=== PATIENT | female | born 1995 | race Caucasian/White ===

== ENCOUNTER 2016-11-22 21:13 | Emergency (ER) | payer BC, MEDICAID ==
[2016-11-22 21:22] VITALS: BP 116/96
[2016-11-22] MEDS ORDERED: Lidocaine 1% with EPINEPHrine 1:100,000 20 ML MDV INJECT ONE (21:40)
[2016-11-22] MEDS ORDERED: Diphtheria,Pertussis(Acell),Tetanus Vaccine 0.5 ML SDV inactive IM ONE (21:40)
[2016-11-22] MEDS ORDERED: Bupivacaine 0.25% 10 ML SDV INJECT ONE (21:40)
[2016-11-22] MEDS ORDERED: Lidocaine 1% 50 ML MDV ONE (21:42)
[2016-11-22] MEDS ORDERED: Sulfamethoxazole/Trimethoprim 800-160 MG Tab PO ONE (22:39)
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
== END 2016-11-22 23:35 | disposition home or self-care (01) ==
LOC: JD.ED 21:13
DX: S51.812A Laceration without foreign body of left forearm, initial encounter (principal); J45.909 Unspecified asthma, uncomplicated; F41.9 Anxiety disorder, unspecified; F32.9 Major depressive disorder, single episode, unspecified; F17.210 Nicotine dependence, cigarettes, uncomplicated; Z79.899 Other long term (current) drug therapy; Z88.8 Allergy status to other drugs, medicaments and biological substances; Z23 Encounter for immunization; W27.8XXA Contact with other nonpowered hand tool, initial encounter
CPT/HCPCS: 12034; 90471; 99283; A9270; 90715

== ENCOUNTER 2016-11-24 06:40 | Emergency (ER) | payer BC ==
[2016-11-24 07:03] VITALS: BP 143/95
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
[2016-11-24] MEDS ORDERED: traMADol 50 MG Tab PO ONE (07:15)
[2016-11-24] MEDS ORDERED: Doxycycline 100 MG Cap PO ONE (07:15)
== END 2016-11-24 07:30 | disposition home or self-care (01) ==
LOC: JD.ED 06:40
DX: S51.812D Laceration without foreign body of left forearm, subsequent encounter (principal); J45.909 Unspecified asthma, uncomplicated; F41.9 Anxiety disorder, unspecified; F32.9 Major depressive disorder, single episode, unspecified; F17.210 Nicotine dependence, cigarettes, uncomplicated; Z88.8 Allergy status to other drugs, medicaments and biological substances; Z79.899 Other long term (current) drug therapy; W27.8XXD Contact with other nonpowered hand tool, subsequent encounter
CPT/HCPCS: 99283; A9270

== ENCOUNTER 2017-01-16 18:00 | Emergency (ER) | payer BC ==
[2017-01-16] MEDS ORDERED: LORazepam 2 MG/ML MDV IM ONE ×2 (18:11→18:15)
[2017-01-16] MEDS ORDERED: diphenhydrAMINE 50 MG/ML SDV IM ONE (18:15)
[2017-01-16] MEDS ORDERED: Haloperidol Lactate 5 MG/ML SDV IM ONE (18:15)
[2017-01-16 18:59] LABS: ACETAMINOPHEN 0 ug/mL (10-30)
[2017-01-16 19:28] VITALS: BP 103/68
[2017-01-16] MEDS ORDERED: Sodium Chloride 0.9% 1,000 ML IV ONE (19:37)
--- NOTE | 2017-01-16 19:41 | CT ---
Head CT Technique: Multiple axial sections through the brain were obtained. Intravenous contrast was not utilized. Comparison: Prior head CT exam of 07/11/15. Findings: Ventricles along with basal cisterns and sulci over the convexities are within normal limits for the patient's age. Slight soft tissue swelling is seen anteriorly within the scalp. No abnormal parenchymal densities are seen. No evidence of intracranial hemorrhage. No midline shift or mass effect is seen. Bone window settings were reviewed which shows no discrete calvarial abnormality. Visualized sinuses are clear. Impression: 1. Mild soft tissue swelling within the anterior scalp. 2. No acute intracranial abnormality is identified on noncontrast head CT study. Diagnostic code #2
[2017-01-16] MEDS ORDERED: Potassium Chloride 10 MEQ in Premix Bag 1 BAG IV SCH (19:45)
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
== END 2017-01-16 21:19 ==
LOC: JD.ED 18:00
PROC: 0JQ10ZZ Repair Face Subcutaneous Tissue and Fascia, Open Approach (ICD-10-PCS; principal; 2017-01-16)
DX: S01.81XA Laceration without foreign body of other part of head, initial encounter (principal); F10.10 Alcohol abuse, uncomplicated; F32.9 Major depressive disorder, single episode, unspecified; Z79.899 Other long term (current) drug therapy; W22.8XXA Striking against or struck by other objects, initial encounter; Y90.0 Blood alcohol level of less than 20 mg/100 ml
CPT/HCPCS: 12013; 36415; 70450; 80053; 80306; 81001; 81025; 85025; 96365; 96372; 99285; G0480; J1200; J1630; J2060; J3480; J7040; P9612; 99284-25

== ENCOUNTER 2017-02-05 16:30 | Emergency (ER) | payer BC ==
[2017-02-05 16:41] VITALS: BP 130/87
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
== END 2017-02-05 17:30 | disposition home or self-care (01) ==
LOC: JD.ED 16:30
DX: F13.239 Sedative, hypnotic or anxiolytic dependence with withdrawal, unspecified (principal); J45.909 Unspecified asthma, uncomplicated; F41.9 Anxiety disorder, unspecified; F32.9 Major depressive disorder, single episode, unspecified; F17.210 Nicotine dependence, cigarettes, uncomplicated; Z88.8 Allergy status to other drugs, medicaments and biological substances; Z79.899 Other long term (current) drug therapy; Z76.5 Malingerer [conscious simulation]
CPT/HCPCS: 99283; 99284

== ENCOUNTER 2017-03-17 09:00 | Emergency (ER) | payer BC ==
[2017-03-17 09:12] VITALS: BP 108/86
[2017-03-17 10:56] LABS: ACETAMINOPHEN 0 ug/mL (10-30)
--- NOTE | 2017-03-17 11:38 | CT ---
Head CT Technique: Multiple axial sections through the brain were obtained. Intravenous contrast was not utilized. Comparison: Previous head CT exam of 01/16/17. Findings: Ventricles along with basal cisterns and sulci over convexities are within normal limits for the patient's age. No abnormal parenchymal densities are seen. No evidence of intracranial hemorrhage. No midline shift or mass effect is seen. Mild soft tissue swelling seen to the left side of the upper scalp. Bone window settings shows no discrete calvarial abnormality. Visualized sinuses are clear. Impression: 1. Mild soft tissue swelling within the left side of the scalp. 2. No acute intracranial abnormality is identified. Diagnostic code #2
[2017-03-17] MEDS ORDERED: LORazepam 1 MG Tab PO ONE (13:08)
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
== END 2017-03-17 17:38 ==
LOC: JD.ED 09:00
DX: F15.10 Other stimulant abuse, uncomplicated (principal); S01.01XA Laceration without foreign body of scalp, initial encounter; J45.909 Unspecified asthma, uncomplicated; F32.9 Major depressive disorder, single episode, unspecified; F17.210 Nicotine dependence, cigarettes, uncomplicated; Z79.899 Other long term (current) drug therapy; Z88.8 Allergy status to other drugs, medicaments and biological substances; X58.XXXA Exposure to other specified factors, initial encounter
CPT/HCPCS: 12001; 36415; 70450; 80053; 80306; 84703; 85025; 99285; A9270; G0480

== ENCOUNTER 2017-05-31 12:28 | Emergency (ER) | payer BC ==
[2017-05-31 12:49] VITALS: BP 118/77
[2017-05-31] MEDS ORDERED: Sodium Chloride 0.9% 10 ML Syringe FLUSH PRN (13:29)
--- NOTE | 2017-05-31 13:36 | EDM.PDOC ---
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 Patient states she awoke with vaginal bleeding and lower abdominal cramping at approximately 2:00 am this morning. Patient states she had sexual intercourse earlier in the night. No pain present that time. Patient changed the pad and went back to bed. There has been no bleeding since. She only saturated a thin pad with onset. She continues to have no abdominal cramping at this point. She is not taking anything for the discomfort. 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 was confirmed by Dr. Oh in office with a urine test. She scheduled to undergo ultrasound this coming Thursday. Last menstrual cycle was approximately March 24, 2017. There's been no abnormal vaginal discharge. She is in a monogamous relationship. She has no history of STDs. Denies any nausea/vomiting, dizziness, fever/chills, dysuria. She does have a history of UTI and was placed on antibiotic of unknown name. This was started approximately 4 days ago. 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 ." Respiratory History: Reports: Asthma 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: Psychiatric History: Reports: Anxiety, Depression Dermatologic History: Reports: Eczema - Past Surgical History HEENT Surgical History: Reports: Oral Surgery Social & Family History - Family History Family Medical History: Noncontributory - Tobacco Use Smoking Status *Q: Former Smoker Years of Tobacco use: 5 Packs/Tins Daily: 1 Used Tobacco, but Quit: Yes Month Tobacco Last Used: 4 days ago - Caffeine Use Caffeine Use: Reports: Coffee, Soda Caffeine Use Comment: unable to obtain - Alcohol Use Days Per Week of Alcohol Use: 0 Number of Drinks Per Day: 1 Total Drinks Per Week: 0 - Recreational Drug Use Recreational Drug Use: Yes Drug Use in Last 12 Months: No Recreational Drug Type: Reports: Marijuana/Hashish, Methamphetamine Other Recreational Drug Type: meth-last used 2 weeks ago- Recreational Drug Use Frequency: Weekly - Living Situation & Occupation Living situation: Reports: Single Occupation: Unemployed (At present she claims that she does not have any place to live. Advised her to go to [facility] as they may be able to help her out in this regard.) ED ROS GENERAL - Review of Systems Review Of Systems: ROS reveals no pertinent complaints other than HPI. ED EXAM - Physical Exam Exam: See Below Exam Limited By: No Limitations General Appearance: Alert, WD/WN, No Apparent Distress Ears: Hearing Grossly Normal Nose: Normal Inspection Throat/Mouth: Normal Voice, No Airway Compromise Head: Atraumatic, Normocephalic Neck: Normal Inspection, Supple Respiratory/Chest: No Respiratory Distress, Lungs Clear, Normal Breath Sounds, No Accessory Muscle Use, Chest Non-Tender Cardiovascular: Normal Peripheral Pulses, Regular Rate, Rhythm, No Murmur GI/Abdominal Exam: Normal Bowel Sounds, Soft, No Organomegaly, No Distention, Tender (Mild suprapubic region discomfort) Back Exam: Normal Inspection. No: CVA Tenderness (L), CVA Tenderness (R) Neurological: Alert, Oriented, CN II-XII Intact, Normal Cognition, No Motor/ Sensory Deficits Psychiatric: Normal Affect, Normal Mood Skin Exam: Warm, Dry, Intact, Normal Color, No Rash Course - Vital Signs Last Recorded V/S: Last Vital Signs Temp 98.5 F 05/31/17 12:47 Pulse 94 05/31/17 12:47 Resp 20 05/31/17 12:47 BP 118/77 05/31/17 12:47 Pulse Ox 100 05/31/17 12:47 - Orders/Labs/Meds Orders: Active Orders 24 hr Category Date Time Status Peripheral IV Care [RC] . DIRECTED Care 05/31/17 13:29 Active PATIENT RETYPE [BBK] Stat Lab 05/31/17 14:31 Results TYPE AND SCREEN [BBK] Stat Lab 05/31/17 14:31 Results Peripheral IV Insertion Adult [OM.PC] Stat Oth 05/31/17 13:29 Ordered Labs: Laboratory Tests 05/31/17 05/31/17 05/31/17 Range/Units 14:31 14:31 14:31 WBC 7.67 (3.98-10.04) K/mm3 RBC 4.20 (3.98-5.22) M/mm3 Hgb 12.8 (11.2-15.7) gm/L Hct 38.0 (34.1-44.9) % MCV 90.5 (79.4-94.8) fl MCH 30.5 (25.6-32.2) pg MCHC 33.7 (32.2-35.5) g/dl RDW Std Deviation 45.6 (36.4-46.3) fL Plt Count 279 (182-369) K/mm3 MPV 8.4 L (9.4-12.3) fl Neut % (Auto) 62.7 (34.0-71.1) % Lymph % (Auto) 20.7 (19.3-51.7) % [place] % (Auto) 14.0 H (4.7-12.5) % Eos % (Auto) 2.1 (0.7-5.8) Baso % (Auto) 0.4 (0.1-1.2) % Neut # (Auto) 4.81 (1.56-6.13) K/mm3 Lymph # (Auto) 1.59 (1.18-3.74) K/mm3 [place] # (Auto) 1.07 H (0.24-0.36) K/mm3 Eos # (Auto) 0.16 (0.04-0.36) K/mm3 Baso # (Auto) 0.03 (0.01-0.08) K/mm3 Sodium 139 (136-145) mEq/L Potassium 3.9 (3.5-5.1) mEq/L Chloride 105 (98-107) mEq/L Carbon Dioxide 26 (21-32) mEq/L Anion Gap 11.9 (5-15) BUN 8 (7-18) mg/dL Creatinine 0.7 (0.55-1.02) mg/dL Est Cr Clr Drug Dosing 106.05 mL/min Estimated GFR (MDRD) > 60 (>60) mL/min BUN/Creatinine Ratio 11.4 L (14-18) Glucose 90 (74-106) mg/dL Calcium 8.8 (8.5-10.1) mg/dL Total Bilirubin 0.3 (0.2-1.0) mg/dL AST 105 H (15-37) U/L ALT 137 H (14-59) U/L Alkaline Phosphatase 50 (46-116) U/L C-Reactive Protein < 0.2 (<1.0) mg/dL Total Protein 6.8 (6.4-8.2) g/dl Albumin 3.5 (3.4-5.0) g/dl Globulin 3.3 gm/dL Albumin/Globulin Ratio 1.1 (1-2) TSH 3rd Generation 1.163 (0.516-4.13) uIU/mL HCG, Quant 83437.0 mIU/mL Blood Type AB POSITIVE Gel Antibody Screen Negative Meds: Medications Discontinued Medications Generic Name Dose Route Start Last Admin Trade Name Freq PRN Reason Stop Dose Admin Sodium Chloride 1,000 mls @ 250 mls/hr 05/31/17 14:45 05/31/17 14:47 Normal Saline IV 250 mls/hr ASDIRECTED CODY Administration Sodium Chloride 10 ml 05/31/17 13:29 05/31/17 14:47 Saline Flush FLUSH 10 ml ASDIRECTED PRN Administration Keep Vein Open - Re-Assessments/Exams Free Text/Narrative Re-Assessment/Exam: IV established with initial blood work including: CBC, chem 14, hCG quantitative , TSH, type and screen, UA, and CRP. Will obtain a OB transvaginal ultrasound. 05/31/17 13:36 Last hCG obtained [id number] was 13,557. Urine culture obtained 05/18/2017 was positive for bacterial vaginosis. Patient is on Flagyl. CBC has resulted out with no concerning findings. Hemoglobin within normal limits. OB transvaginal ultrasound impression: Single intrauterine gestation. Dates as noted above. No, getting processes identified by ultrasound at this time. 1505 Still awaiting for remaining labs to be resulted out. UA has not been collected. Patient urinated prior to admission. 1529 Remaining labs have resulted out minus the UA. Sodium was 139, potassium 3.9, AG 11.9, creatinine 0.7, AST 105, ALTs 137, CRP less than 0.2, TSH 1.163, hCG quantitative is 33,205. Review previous labs that appears patient's LFTs have been elevated since March 2017. Suspect with being . Unclear at this point. UA has not been collected. Patient has no pain with urination. Reassessment, patient remains pain-free. She wishes to be discharged home without a UA sample obtained. Discharge instructions as documented. Departure - Departure Time of Disposition: 15:37 Disposition: Home, Self-Care 01 Condition: Good Clinical Impression: First trimester , 6 weeks gestation of , Vaginal bleeding in , Elevated liver enzymes - Discharge Information Instructions: Vaginal Bleeding During , First Trimester, First Trimester of Referrals: Darius Oh MD [Primary Care Provider] - Forms: ED Department Discharge, ED Return to Work/School Form Additional Instructions: As discussed continue taking the Flagyl as prescribed for bacterial vaginosis. Refrain from sexual intercourse or heavy lifting until evaluated by Dr. Oh this coming Thursday. In addition LFTs were elevated. Suggest following up with primary care provider to determine cause. I suggest refraining from any Tylenol use. Do not take any NSAIDs. Utilize warm compresses to the abdomen if you have any discomfort. Return to the ED if you develop any new or worsening symptoms. - My Orders Last 24 Hours: My Active Orders 05/31/17 13:29 Peripheral IV Care [RC] . DIRECTED Peripheral IV Insertion Adult [OM.PC] Stat 05/31/17 14:31 PATIENT RETYPE [BBK] Stat TYPE AND SCREEN [BBK] Stat - Assessment/Plan Last 24 Hours: My Active Orders 05/31/17 13:29 Peripheral IV Care [RC] . DIRECTED Peripheral IV Insertion Adult [OM.PC] Stat 05/31/17 14:31 PATIENT RETYPE [BBK] Stat TYPE AND SCREEN [BBK] Stat
--- NOTE | 2017-05-31 14:41 | US ---
First trimester obstetrical ultrasound: Multiple real-time images were obtained transvaginally. Comparison: No previous obstetrical imaging for current . Dates: LMP: LMP given as 03/24/17, TAMMI 12/29/17, gestational age 9 weeks 5 days Current ultrasound: TAMMI 01/24/18, gestational age 6 weeks 0 days Single intrauterine gestation is seen. Amniotic fluid volume is normal. Yolk sac and pole are identified. No subchorionic hemorrhage is seen. Minimal fluid within the cul-de-sac is present which is physiologic. No adnexal abnormalities are seen. Measurements: Gestational sac: 1.40 cm - 6 weeks 0 days [place]-rump length: 0.32 cm - 6 weeks 0 days Heart rate: 96 BPM Impression: 1. Single intrauterine gestation. Dates as noted above. 2. No complicating process is identified by ultrasound at this time. Diagnostic code #1
[2017-05-31] MEDS ORDERED: Sodium Chloride 0.9% 1,000 ML IV SCH (14:45)
== END 2017-05-31 16:10 | disposition home or self-care (01) ==
LOC: JD.ED 12:28
DX: O20.9 Hemorrhage in early pregnancy, unspecified (principal); R79.89 Other specified abnormal findings of blood chemistry; Z88.8 Allergy status to other drugs, medicaments and biological substances; Z79.899 Other long term (current) drug therapy; Z87.891 Personal history of nicotine dependence; Z3A.01 Less than 8 weeks gestation of pregnancy
CPT/HCPCS: 36415; 76817; 80053; 84443; 84702; 85025; 86140; 86850; 86900; 86901; 96360; 99284; J7040; J7050; 99283

== ENCOUNTER 2018-01-24 03:35 | Inpatient (IN) | payer BC, MEDICAID ==
[2018-01-24] MEDS ORDERED: Lactated Ringers 1,000 ML ONE (08:27)
[2018-01-24] MEDS ORDERED: Sodium Chloride 0.9% 10 ML Syringe FLUSH PRN (08:35)
[2018-01-24] MEDS ORDERED: Nalbuphine 20 MG/ML 1 ML Syringe IVPUSH PRN (08:35)
[2018-01-24] MEDS: Lactated Ringers 1,000 ML IV SCH ×4 (08:56→13:04)
[2018-01-24] MEDS ORDERED: Ondansetron 4 MG/2 ML SDV IVPUSH PRN (09:18)
[2018-01-24] MEDS ORDERED: diphenhydrAMINE 50 MG/ML SDV IVPUSH PRN (09:18)
[2018-01-24] MEDS ORDERED: fentaNYL 100 MCG/2 ML SDV EPIDUR PRN ×2 (09:18→17:03)
[2018-01-24] MEDS ORDERED: ePHEDrine 50 MG/ML SDV IVPUSH PRN (09:18)
[2018-01-24] MEDS ORDERED: Bupivacaine/fentaNYL/NS 100 ML Bag EPIDUR SCH (09:30)
--- NOTE | 2018-01-24 10:08 | PCM.PREANE ---
Preanesthetic Assessment - Anesthesia/Transfusion/Family Hx Anesthesia History: Prior Anesthesia Without Reaction Family History of Anesthesia Reaction: No - Review of Systems General: No Symptoms Pulmonary: No Symptoms (Smokes a cigarette on occasion.) Cardiovascular: No Symptoms Gastrointestinal: No Symptoms Neurological: No Symptoms, Other (During her she experianced back pain /tingling into her legs. Resolved on its own. No complaints at this time. ) Other: Reports: Diabetes (Gestational. Diet controlled. ), Depression, Anxiety - Physical Assessment Pulse: 74 O2 Sat by Pulse Oximetry: 98 Respiratory Rate: 20 Blood Pressure: 133/65 Vital Signs: Last Vital Signs Temp 36.4 C 01/24/18 08:00 Pulse 100 01/24/18 08:00 Resp 20 01/24/18 08:00 BP 123/75 01/24/18 08:00 Pulse Ox 98 01/24/18 08:00 Height: 1.63 m Weight: 83.461 kg ASA Class: 2 Mental Status: Alert & Oriented x3 Airway Class: Mallampati = 1 Dentition: Reports: Normal Dentition Thyro-Mental Finger Breadths: 3 Mouth Opening Finger Breadths: 3 ROM/Head Extension: Full Lungs: Clear to Auscultation, Normal Respiratory Effort Cardiovascular: Regular Rate, Regular Rhythm - Lab Values: Laboratory Last Values WBC 16.39 K/mm3 (3.98-10.04) H 01/24/18 08:37 RBC 4.16 M/mm3 (3.98-5.22) 01/24/18 08:37 Hgb 13.1 gm/L (11.2-15.7) 01/24/18 08:37 Hct 38.4 % (34.1-44.9) 01/24/18 08:37 MCV 92.3 fl (79.4-94.8) 01/24/18 08:37 MCH 31.5 pg (25.6-32.2) 01/24/18 08:37 MCHC 34.1 g/dl (32.2-35.5) 01/24/18 08:37 RDW Std Deviation 51.3 fL (36.4-46.3) H 01/24/18 08:37 Plt Count 254 K/mm3 (182-369) 01/24/18 08:37 MPV 10.5 fl (9.4-12.3) 01/24/18 08:37 Neut % (Auto) 80.6 % (34.0-71.1) H 01/24/18 08:37 Lymph % (Auto) 12.5 % (19.3-51.7) L 01/24/18 08:37 [place] % (Auto) 6.0 % (4.7-12.5) 01/24/18 08:37 Eos % (Auto) 0.4 (0.7-5.8) L 01/24/18 08:37 Baso % (Auto) 0.1 % (0.1-1.2) 01/24/18 08:37 Neut # (Auto) 13.21 K/mm3 (1.56-6.13) H 01/24/18 08:37 Lymph # (Auto) 2.05 K/mm3 (1.18-3.74) 01/24/18 08:37 [place] # (Auto) 0.99 K/mm3 (0.24-0.36) H 01/24/18 08:37 Eos # (Auto) 0.06 K/mm3 (0.04-0.36) 01/24/18 08:37 Baso # (Auto) 0.02 K/mm3 (0.01-0.08) 01/24/18 08:37 Urine Color Yellow (Yellow) 01/24/18 03:05 Urine Appearance Clear (Clear) 01/24/18 03:05 Urine pH 7.0 (5.0-8.0) 01/24/18 03:05 Ur Specific [place] 1.020 (1.005-1.030) 01/24/18 03:05 Urine Protein Negative (Negative) 01/24/18 03:05 Urine Glucose (UA) Negative (Negative) 01/24/18 03:05 Urine Ketones Negative (Negative) 01/24/18 03:05 Urine Occult Blood Negative (Negative) 01/24/18 03:05 Urine Nitrite Negative (Negative) 01/24/18 03:05 Urine Bilirubin Negative (Negative) 01/24/18 03:05 Urine Urobilinogen 0.2 (0.2-1.0) 01/24/18 03:05 Ur Leukocyte Esterase Negative (Negative) 01/24/18 03:05 Urine Opiates Screen Negative (NEGATIVE) 01/24/18 03:05 Ur Buprenorphine Scrn Negative (NEGATIVE) 01/24/18 03:05 Ur Oxycodone Screen Negative (NEGATIVE) 01/24/18 03:05 Urine Methadone Screen Negative (NEGATIVE) 01/24/18 03:05 Ur Propoxyphene Screen Negative (NEGATIVE) 01/24/18 03:05 Ur Barbiturates Screen Negative (NEGATIVE) 01/24/18 03:05 Ur Tricyclics Screen Negative (NEGATIVE) 01/24/18 03:05 Ur Phencyclidine Scrn Negative (NEGATIVE) 01/24/18 03:05 Ur Amphetamine Screen Negative (NEGATIVE) 01/24/18 03:05 U Methamphetamines Scrn Negative (NEGATIVE) 01/24/18 03:05 U Benzodiazepines Scrn Negative (NEGATIVE) 01/24/18 03:05 U Cocaine Metab Screen Negative (NEGATIVE) 01/24/18 03:05 U Marijuana (THC) Screen Negative (NEGATIVE) 01/24/18 03:05 - Allergies Allergies/Adverse Reactions: Allergies Allergy/AdvReac Type Severity Reaction Status Date / Time quetiapine [From Seroquel] Allergy Anaphylactic Verified 02/05/17 16:33 Shock - Acknowledgements Anesthesia Type Planned: Epidural Pt an Appropriate Candidate for the Planned Anesthesia: Yes Alternatives and Risks of Anesthesia Discussed w Pt/Guardian: Yes Pt/Guardian Understands and Agrees with Anesthesia Plan: Yes PreAnesthesia Questionnaire - Past Health History Medical/Surgical History: Denies Medical/Surgical History HEENT History: Reports: Impaired Vision Other HEENT History: 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 ." Respiratory History: Reports: Asthma 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: Psychiatric History: Reports: Anxiety, Depression Dermatologic History: Reports: Eczema - Past Surgical History HEENT Surgical History: Reports: Oral Surgery - HOME MEDS Home Medications: Home Meds Vit #108/Iron/FA [ One Tablet] 1 tab PO DAILY 05/31/17 [History ] buPROPion [Wellbutrin XL] 150 mg PO DAILY 05/31/17 [History] metroNIDAZOLE [Flagyl] 500 mg PO BID 05/31/17 [History] - CURRENT (IN HOUSE) MEDS Current Meds: Current Medications Diphenhydramine HCl (Benadryl) 25 mg IVPUSH Q6H PRN PRN Reason: Pruritis Ephedrine Sulfate (Ephedrine Sulfate) 5 mg IVPUSH ASDIRECTED PRN PRN Reason: Hypotension Fentanyl (Sublimaze) 100 mcg EPIDUR ONETIME PRN PRN Reason: Pain Last Admin: 01/24/18 09:50 Dose: 100 mcg Fentanyl/Bupivacaine HCl (Fentanyl/Bupivacaine/Ns 2 Mcg-0.125% 100 Ml) 100 ml EPIDUR ASDIRECTED [facility] Last Admin: 01/24/18 09:50 Dose: 100 ml Lactated Ringer's (Ringers, Lactated) 1,000 mls @ 100 mls/hr IV ASDIRECTED [facility] Last Admin: 01/24/18 09:06 Dose: 999 mls/hr Nalbuphine HCl (Nubain) 10 mg IVPUSH Q2H PRN PRN Reason: pain Last Admin: 01/24/18 08:57 Dose: 10 mg Ondansetron HCl (Zofran) 4 mg IVPUSH ONETIME PRN PRN Reason: Nausea/Vomiting Sodium Chloride (Saline Flush) 10 ml FLUSH ASDIRECTED PRN PRN Reason: Keep Vein Open Discontinued Medications Lactated Ringer's (Ringers, Lactated) Confirm Administered Dose 1,000 mls @ as directed .ROUTE .ST-MED ONE Stop: 01/24/18 08:28
[2018-01-24] MEDS ORDERED: Oxytocin/Lactated Ringers 10 UNIT/1,000 ML BAG IV SCH ×2 (13:15→14:30)
[2018-01-24] MEDS ORDERED: fentaNYL 100 MCG/2 ML SDV ONE (17:07)
--- NOTE | 2018-01-24 18:25 | PCM.DEL ---
L & D Note - General Info Date of Service: 01/24/18 - Delivery Note Labor: Augmented by ARM Delivery Method: Spontaneous Vaginal Delivery-Single Delivery Mode: Vacuum Extraction Anesthesia Type: Epidural Episiotomy Type: None Laceration: None Placenta: Spontaneous Cord: 3 Vessels Resuscitation Needed: No Score 1 min: 6 Score 5 min: 8 Delivery Comments (Free Text/Narrative):: Vacuum at for maternal request/exhaustion. 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 - General Info Date of Service: 01/24/18 - Patient Data Vitals - Most Recent: Last Vital Signs Temp 36.4 C 01/24/18 08:00 Pulse 66 01/24/18 11:00 Resp 20 01/24/18 10:07 BP 96/50 L 01/24/18 11:00 Pulse Ox 98 01/24/18 10:07 Weight - Most Recent: 83.461 kg I&O - Last 24 Hours: Intake & Output 01/24/18 01/24/18 01/24/18 06:59 14:59 22:59 Intake Total 240 Balance 240 Lab Results Last 24 Hours: Laboratory Results - last 24 hr 01/24/18 01/24/18 01/24/18 Range/Units 03:05 03:05 08:37 WBC 16.39 H (3.98-10.04) K/mm3 RBC 4.16 (3.98-5.22) M/mm3 Hgb 13.1 (11.2-15.7) gm/L Hct 38.4 (34.1-44.9) % MCV 92.3 (79.4-94.8) fl MCH 31.5 (25.6-32.2) pg MCHC 34.1 (32.2-35.5) g/dl RDW Std Deviation 51.3 H (36.4-46.3) fL Plt Count 254 (182-369) K/mm3 MPV 10.5 (9.4-12.3) fl Neut % (Auto) 80.6 H (34.0-71.1) % Lymph % (Auto) 12.5 L (19.3-51.7) % [place] % (Auto) 6.0 (4.7-12.5) % Eos % (Auto) 0.4 L (0.7-5.8) Baso % (Auto) 0.1 (0.1-1.2) % Neut # (Auto) 13.21 H (1.56-6.13) K/mm3 Lymph # (Auto) 2.05 (1.18-3.74) K/mm3 [place] # (Auto) 0.99 H (0.24-0.36) K/mm3 Eos # (Auto) 0.06 (0.04-0.36) K/mm3 Baso # (Auto) 0.02 (0.01-0.08) K/mm3 POC Glucose (70-105) mg/dL Urine Color Yellow (Yellow) Urine Appearance Clear (Clear) Urine pH 7.0 (5.0-8.0) Ur Specific [place] 1.020 (1.005-1.030) Urine Protein Negative (Negative) Urine Glucose (UA) Negative (Negative) Urine Ketones Negative (Negative) Urine Occult Blood Negative (Negative) Urine Nitrite Negative (Negative) Urine Bilirubin Negative (Negative) Urine Urobilinogen 0.2 (0.2-1.0) Ur Leukocyte Esterase Negative (Negative) Urine Opiates Screen Negative (NEGATIVE) Ur Buprenorphine Scrn Negative (NEGATIVE) Ur Oxycodone Screen Negative (NEGATIVE) Urine Methadone Screen Negative (NEGATIVE) Ur Propoxyphene Screen Negative (NEGATIVE) Ur Barbiturates Screen Negative (NEGATIVE) Ur Tricyclics Screen Negative (NEGATIVE) Ur Phencyclidine Scrn Negative (NEGATIVE) Ur Amphetamine Screen Negative (NEGATIVE) U Methamphetamines Scrn Negative (NEGATIVE) U Benzodiazepines Scrn Negative (NEGATIVE) U Cocaine Metab Screen Negative (NEGATIVE) U Marijuana (THC) Screen Negative (NEGATIVE) 01/24/18 01/24/18 01/24/18 Range/Units 11:50 14:27 16:40 WBC (3.98-10.04) K/mm3 RBC (3.98-5.22) M/mm3 Hgb (11.2-15.7) gm/L Hct (34.1-44.9) % MCV (79.4-94.8) fl MCH (25.6-32.2) pg MCHC (32.2-35.5) g/dl RDW Std Deviation (36.4-46.3) fL Plt Count (182-369) K/mm3 MPV (9.4-12.3) fl Neut % (Auto) (34.0-71.1) % Lymph % (Auto) (19.3-51.7) % [place] % (Auto) (4.7-12.5) % Eos % (Auto) (0.7-5.8) Baso % (Auto) (0.1-1.2) % Neut # (Auto) (1.56-6.13) K/mm3 Lymph # (Auto) (1.18-3.74) K/mm3 [place] # (Auto) (0.24-0.36) K/mm3 Eos # (Auto) (0.04-0.36) K/mm3 Baso # (Auto) (0.01-0.08) K/mm3 POC Glucose 117 H 99 92 (70-105) mg/dL Urine Color (Yellow) Urine Appearance (Clear) Urine pH (5.0-8.0) Ur Specific [place] (1.005-1.030) Urine Protein (Negative) Urine Glucose (UA) (Negative) Urine Ketones (Negative) Urine Occult Blood (Negative) Urine Nitrite (Negative) Urine Bilirubin (Negative) Urine Urobilinogen (0.2-1.0) Ur Leukocyte Esterase (Negative) Urine Opiates Screen (NEGATIVE) Ur Buprenorphine Scrn (NEGATIVE) Ur Oxycodone Screen (NEGATIVE) Urine Methadone Screen (NEGATIVE) Ur Propoxyphene Screen (NEGATIVE) Ur Barbiturates Screen (NEGATIVE) Ur Tricyclics Screen (NEGATIVE) Ur Phencyclidine Scrn (NEGATIVE) Ur Amphetamine Screen (NEGATIVE) U Methamphetamines Scrn (NEGATIVE) U Benzodiazepines Scrn (NEGATIVE) U Cocaine Metab Screen (NEGATIVE) U Marijuana (THC) Screen (NEGATIVE) Med Orders - Current: Current Medications Diphenhydramine HCl (Benadryl) 25 mg IVPUSH Q6H PRN PRN Reason: Pruritis Ephedrine Sulfate (Ephedrine Sulfate) 5 mg IVPUSH ASDIRECTED PRN PRN Reason: Hypotension Fentanyl (Sublimaze) 100 mcg EPIDUR ONETIME PRN PRN Reason: Pain Last Admin: 01/24/18 09:50 Dose: 100 mcg Fentanyl (Sublimaze) 100 mcg EPIDUR ONETIME PRN PRN Reason: Pain Fentanyl/Bupivacaine HCl (Fentanyl/Bupivacaine/Ns 2 Mcg-0.125% 100 Ml) 100 ml EPIDUR ASDIRECTED CODY Last Admin: 01/24/18 09:50 Dose: 100 ml Lactated Ringer's (Ringers, Lactated) 1,000 mls @ 100 mls/hr IV ASDIRECTED CODY Last Admin: 01/24/18 13:04 Dose: 999 mls/hr Oxytocin/Lactated Ringer's (Pitocin In Lr 10 Units/1,000 Ml) 10 unit in 1,000 mls @ 500 mls/hr IV ASDIRECTED CODY Oxytocin/Lactated Ringer's (Pitocin In Lr 10 Units/1,000 Ml) 10 unit in 1,000 mls @ 12 mls/hr IV TITRATE CODY; Protocol Last Titration: 01/24/18 14:49 Dose: 3 munits/min, 18 mls/hr Nalbuphine HCl (Nubain) 10 mg IVPUSH Q2H PRN PRN Reason: pain Last Admin: 01/24/18 08:57 Dose: 10 mg Ondansetron HCl (Zofran) 4 mg IVPUSH ONETIME PRN PRN Reason: Nausea/Vomiting Sodium Chloride (Saline Flush) 10 ml FLUSH ASDIRECTED PRN PRN Reason: Keep Vein Open Discontinued Medications Fentanyl (Sublimaze) Confirm Administered Dose 100 mcg .ROUTE .STK-MED ONE Stop: 01/24/18 17:08 Last Admin: 01/24/18 17:12 Dose: 100 mcg Lactated Ringer's (Ringers, Lactated) Confirm Administered Dose 1,000 mls @ as directed .ROUTE .STK-MED ONE Stop: 01/24/18 08:28 Last Admin: 01/24/18 10:25 Dose: Not Given - Problem List Review Problem List Initiated/Reviewed/Updated: Yes - My Orders Last 24 Hours: My Active Orders 01/24/18 03:05 DRUG SCREEN, URINE [URCHEM] Routine URINALYSIS W/O MICROSCOPIC [UA W/O MICROSCOPIC] [URIN] Routine 01/24/18 08:35 Nalbuphine [Nubain] 10 mg IVPUSH Q2H PRN Sodium Chloride 0.9% [Saline Flush] 10 ml FLUSH ASDIRECTED PRN 01/24/18 08:36 Patient Status [ADT] Routine Activity as Tolerated [RC] PFP Peripheral IV Care [RC] . DIRECTED Vital Signs [RC] PER UNIT ROUTINE RAPID PLASMA REAGIN,RPR [CHEM] Routine Electronic Heart Tones Ext w TOCO [WOMSER] Routine Electronic Heart Tones Internal [WOMSER] Per Unit Routine Peripheral IV Insertion Adult [OM.PC] Routine 01/24/18 08:45 Lactated Ringers [Ringers, Lactated] 1,000 ml IV ASDIRECTED 01/24/18 13:06 Glucose [Blood Glucose Check, Bedside] [RC] ASDIRECTED 01/24/18 13:15 Oxytocin/Lactated Ringers [Pitocin in LR 10 Units/1,000 ML] 10 unit in 1,000 ml IV ASDIRECTED 01/24/18 14:30 Oxytocin/Lactated Ringers [Pitocin in LR 10 Units/1,000 ML] 10 unit in 1,000 ml IV TITRATE 01/24/18 18:20 Patient Status Manage Transfer [TRANSFER] Routine 01/24/18 18:21 Resuscitation Status Routine 01/24/18 Lunch Regular Diet [DIET]
[2018-01-24] MEDS ORDERED: Witch Hazel Medicated Pads 100/Jar TOP PRN (19:46)
[2018-01-24] MEDS ORDERED: Docusate Sodium 100 MG Cap PO PRN (19:46)
[2018-01-24] MEDS ORDERED: Lanolin 100% Cream 7 GM Tube TOP PRN (19:46)
[2018-01-24] MEDS: Ibuprofen 600 MG Tab PO PRN (20:25)
[2018-01-24] MEDS ORDERED: Bupivacaine 0.25% 10 ML SDV ONE (22:00)
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
--- NOTE | 2018-01-25 06:28 | PCM.PNPP ---
- General Info Date of Service: 01/25/18 Functional Status: Reports: Pain Controlled - Review of Systems General: Reports: No Symptoms HEENT: Reports: No Symptoms Pulmonary: Reports: No Symptoms Cardiovascular: Reports: No Symptoms Gastrointestinal: Reports: No Symptoms Genitourinary: Reports: No Symptoms Musculoskeletal: Reports: No Symptoms Skin: Reports: No Symptoms Neurological: Reports: No Symptoms Psychiatric: Reports: No Symptoms - General Info Date of Service: 01/25/18 - Patient Data Vital Signs - Most Recent: Last Vital Signs Temp 36.7 C 01/25/18 00:20 Pulse 64 01/25/18 00:20 Resp 16 01/25/18 00:20 BP 105/64 01/25/18 00:20 Pulse Ox 100 01/25/18 00:20 Weight - Most Recent: 83.461 kg I&O - Last 24 Hours: Intake & Output 01/24/18 01/24/18 01/25/18 14:59 22:59 06:59 Intake Total 240 5000 Balance 240 5000 Lab Results - Last 24 Hours: Laboratory Results - last 24 hr 01/24/18 01/24/18 01/24/18 Range/Units 08:37 11:50 14:27 WBC 16.39 H (3.98-10.04) K/mm3 RBC 4.16 (3.98-5.22) M/mm3 Hgb 13.1 (11.2-15.7) gm/L Hct 38.4 (34.1-44.9) % MCV 92.3 (79.4-94.8) fl MCH 31.5 (25.6-32.2) pg MCHC 34.1 (32.2-35.5) g/dl RDW Std Deviation 51.3 H (36.4-46.3) fL Plt Count 254 (182-369) K/mm3 MPV 10.5 (9.4-12.3) fl Neut % (Auto) 80.6 H (34.0-71.1) % Lymph % (Auto) 12.5 L (19.3-51.7) % [place] % (Auto) 6.0 (4.7-12.5) % Eos % (Auto) 0.4 L (0.7-5.8) Baso % (Auto) 0.1 (0.1-1.2) % Neut # (Auto) 13.21 H (1.56-6.13) K/mm3 Lymph # (Auto) 2.05 (1.18-3.74) K/mm3 [place] # (Auto) 0.99 H (0.24-0.36) K/mm3 Eos # (Auto) 0.06 (0.04-0.36) K/mm3 Baso # (Auto) 0.02 (0.01-0.08) K/mm3 POC Glucose 117 H 99 (70-105) mg/dL 01/24/18 Range/Units 16:40 WBC (3.98-10.04) K/mm3 RBC (3.98-5.22) M/mm3 Hgb (11.2-15.7) gm/L Hct (34.1-44.9) % MCV (79.4-94.8) fl MCH (25.6-32.2) pg MCHC (32.2-35.5) g/dl RDW Std Deviation (36.4-46.3) fL Plt Count (182-369) K/mm3 MPV (9.4-12.3) fl Neut % (Auto) (34.0-71.1) % Lymph % (Auto) (19.3-51.7) % [place] % (Auto) (4.7-12.5) % Eos % (Auto) (0.7-5.8) Baso % (Auto) (0.1-1.2) % Neut # (Auto) (1.56-6.13) K/mm3 Lymph # (Auto) (1.18-3.74) K/mm3 [place] # (Auto) (0.24-0.36) K/mm3 Eos # (Auto) (0.04-0.36) K/mm3 Baso # (Auto) (0.01-0.08) K/mm3 POC Glucose 92 (70-105) mg/dL Med Orders - Current: Current Medications Docusate Sodium (Colace) 100 mg PO BID PRN PRN Reason: Constipation Emollient Ointment (Lansinoh Hpa) 0 gm TOP ASDIRECTED PRN PRN Reason: Sore Nipples Ibuprofen (Motrin) 600 mg PO Q6H PRN PRN Reason: Mild pain or fever Last Admin: 01/24/18 20:25 Dose: 600 mg Witch Marcelle (Tucks) 1 pad TOP ASDIRECTED PRN PRN Reason: Hemorrhoid pain Last Admin: 01/24/18 20:25 Dose: 1 tub Discontinued Medications Diphenhydramine HCl (Benadryl) 25 mg IVPUSH Q6H PRN PRN Reason: Pruritis Ephedrine Sulfate (Ephedrine Sulfate) 5 mg IVPUSH ASDIRECTED PRN PRN Reason: Hypotension Fentanyl (Sublimaze) 100 mcg EPIDUR ONETIME PRN PRN Reason: Pain Last Admin: 01/24/18 09:50 Dose: 100 mcg Fentanyl (Sublimaze) 100 mcg EPIDUR ONETIME PRN PRN Reason: Pain Fentanyl (Sublimaze) Confirm Administered Dose 100 mcg .ROUTE .STK-MED ONE Stop: 01/24/18 17:08 Last Admin: 01/24/18 17:12 Dose: 100 mcg Fentanyl/Bupivacaine HCl (Fentanyl/Bupivacaine/Ns 2 Mcg-0.125% 100 Ml) 100 ml EPIDUR ASDIRECTED C[facility] Last Admin: 01/24/18 09:50 Dose: 100 ml Lactated Ringer's (Ringers, Lactated) Confirm Administered Dose 1,000 mls @ as directed .ROUTE .STK-MED ONE Stop: 01/24/18 08:28 Last Admin: 01/24/18 10:25 Dose: Not Given Lactated Ringer's (Ringers, Lactated) 1,000 mls @ 100 mls/hr IV ASDIRECTED CODY Last Admin: 01/24/18 13:04 Dose: 999 mls/hr Oxytocin/Lactated Ringer's (Pitocin In Lr 10 Units/1,000 Ml) 10 unit in 1,000 mls @ 500 mls/hr IV ASDIRECTED CODY Oxytocin/Lactated Ringer's (Pitocin In Lr 10 Units/1,000 Ml) 10 unit in 1,000 mls @ 12 mls/hr IV TITRATE CODY; Protocol Last Titration: 01/24/18 14:49 Dose: 3 munits/min, 18 mls/hr Nalbuphine HCl (Nubain) 10 mg IVPUSH Q2H PRN PRN Reason: pain Last Admin: 01/24/18 08:57 Dose: 10 mg Ondansetron HCl (Zofran) 4 mg IVPUSH ONETIME PRN PRN Reason: Nausea/Vomiting Sodium Chloride (Saline Flush) 10 ml FLUSH ASDIRECTED PRN PRN Reason: Keep Vein Open - Interaction Disposition, : to Nursery Support Person: Significant Other - Recovery Exam Fundal Tone: Firm Fundal Level: At Umbilicus Fundal Placement: Midline Lochia Amount: Small Lochia Color: Rubra/Red Perineum Description: Edematous Other Perinuem Description: first degree repaired, using tucks Episiotomy/Laceration: Approximated Urinary Elimination: Voided - Exam General: Alert, Oriented HEENT: Pupils Equal Neck: Supple Lungs: Clear to Auscultation, Normal Respiratory Effort Cardiovascular: Regular Rate, Regular Rhythm GI/Abdominal Exam: Normal Bowel Sounds, Soft, Non-Tender, No Organomegaly Extremities: Normal Inspection, Normal Range of Motion, Non-Tender, No Pedal Edema, Normal Capillary Refill Skin: Warm, Dry, Intact Neurological: No New Focal Deficit Psy/Mental Status: Alert, Normal Affect, Normal Mood - Problem List Review Problem List Initiated/Reviewed/Updated: Yes - My Orders Last 24 Hours: My Active Orders 01/24/18 13:06 Glucose [Blood Glucose Check, Bedside] [RC] ASDIRECTED 01/24/18 18:21 Resuscitation Status Routine 01/24/18 19:16 Consult to Cook Morning [CONS] Routine 01/24/18 19:46 Activity as Tolerated [RC] PER UNIT ROUTINE Vital Signs [RC] 21,03,09,15 Consult to Cook Morning [CONS] Routine Docusate Sodium [Colace] 100 mg PO BID PRN Ibuprofen [Motrin] 600 mg PO Q6H PRN Lanolin [Lansinoh HPA] See Dose Instructions TOP ASDIRECTED PRN Witch Marcelle [Tucks] 1 pad TOP ASDIRECTED PRN Assess Lochia [WOMSER] Per Unit Routine Assess Uterine Involution [WOMSER] Per Unit Routine Breast Pump [WOMSER] Per Unit Routine Heat Therapy [OM.PC] PRN Medication Administration Instruction [OM.PC] Routine Perineal Care [OM.PC] Per Unit Routine Sitz Bath [OM.PC] Per Unit Routine 01/25/18 19:46 Heat Therapy [OM.PC] PRN - Assessment Assessment:: PPD1 Doing well 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
[2018-01-25] MEDS: Ibuprofen 600 MG Tab PO PRN ×3 (08:10→22:56)
--- NOTE | 2018-01-25 08:31 | PCM48HPAN ---
Post Anesthesia Note - EVALUATION WITHIN 48HRS OF ANESTHETIC Vital Signs in Normal Range: Yes Patient Participated in Evaluation: Yes Respiratory Function Stable: Yes Airway Patent: Yes Cardiovascular Function Stable: Yes Hydration Status Stable: Yes Pain Control Satisfactory: Yes Nausea and Vomiting Control Satisfactory: Yes Mental Status Recovered: Yes Pulse Rate: 64 Resp Rate: 16 Temperature: 98.1 F Blood Pressure: 105/64
--- NOTE | 2018-01-26 07:31 | PCM.DCSUM1 ---
Discharge Summary - Hospital Course Diagnosis: Stroke: No - Discharge Data Discharge Date: 01/26/18 Discharge Disposition: Home, Self-Care 01 Condition: Good - Patient Summary/Data Consults: Consultations 01/24/18 19:16 Consult to Bush Regenerator [CONS] Routine 01/24/18 19:46 Consult to Bush Regenerator [CONS] Routine Hospital Course: Uncomplicated labor and vaginal delivery. Social work consult pending at time of this note but will discharge pending that. - Patient Instructions Diet: Usual Diet as Tolerated Activity: No Strenuous Activities Driving: May Drive Today Showering/Bathing: May Shower, No Showering, No Tub Bathing/Swimming Notify Provider of: Fever, Increased Pain, Swelling and Redness, Drainage, Nausea and/or Vomiting - Discharge Plan *PRESCRIPTION DRUG MONITORING PROGRAM REVIEWED*: Yes *COPY OF PRESCRIPTION DRUG MONITORING REPORT IN PATIENT LEONID: Yes Home Medications: Home Meds Vit #108/Iron/FA [ One Tablet] 1 tab PO DAILY 05/31/17 [History ] buPROPion [Wellbutrin XL] 150 mg PO DAILY 05/31/17 [History] metroNIDAZOLE [Flagyl] 500 mg PO BID 05/31/17 [History] Referrals: Darius Oh MD [Physician] - (1 week. ) Michelle Jacques MD [Physician] - (6 weeks (pt desires Mirena or Nexplanon)) - Discharge Summary/Plan Comment DC Time >30 min.: No - General Info Date of Service: 01/26/18 Functional Status: Reports: Pain Controlled - Review of Systems General: Reports: No Symptoms HEENT: Reports: No Symptoms Pulmonary: Reports: No Symptoms Cardiovascular: Reports: No Symptoms Gastrointestinal: Reports: No Symptoms Genitourinary: Reports: No Symptoms Musculoskeletal: Reports: No Symptoms Skin: Reports: No Symptoms Neurological: Reports: No Symptoms Psychiatric: Reports: No Symptoms - Patient Data Vitals - Most Recent: Last Vital Signs Temp 36.9 C 01/26/18 03:54 Pulse 72 01/26/18 03:54 Resp 15 01/26/18 03:54 BP 113/63 01/26/18 03:54 Pulse Ox 100 01/26/18 03:54 Weight - Most Recent: 83.461 kg I&O - Last 24 hours: Intake & Output 01/25/18 01/26/1801/26/18 22:59 06:59 14:59 Intake Total 120 Balance 120 Med Orders - Current: Current Medications Docusate Sodium (Colace) 100 mg PO BID PRN PRN Reason: Constipation Emollient Ointment (Lansinoh Hpa) 0 gm TOP ASDIRECTED PRN PRN Reason: Sore Nipples Last Admin: 01/25/18 17:17 Dose: 1 tube Ibuprofen (Motrin) 600 mg PO Q6H PRN PRN Reason: Mild pain or fever Last Admin: 01/25/18 22:56 Dose: 600 mg Witch Marcelle (Tucks) 1 pad TOP ASDIRECTED PRN PRN Reason: Hemorrhoid pain Last Admin: 01/24/18 20:25 Dose: 1 tub Discontinued Medications Bupivacaine HCl (Sensorcaine-Mpf 0.25%) 10 ml .ROUTE .STK-MED ONE Stop: 01/24/18 22:01 Diphenhydramine HCl (Benadryl) 25 mg IVPUSH Q6H PRN PRN Reason: Pruritis Ephedrine Sulfate (Ephedrine Sulfate) 5 mg IVPUSH ASDIRECTED PRN PRN Reason: Hypotension Fentanyl (Sublimaze) 100 mcg EPIDUR ONETIME PRN PRN Reason: Pain Last Admin: 01/24/18 09:50 Dose: 100 mcg Fentanyl (Sublimaze) 100 mcg EPIDUR ONETIME PRN PRN Reason: Pain Fentanyl (Sublimaze) Confirm Administered Dose 100 mcg .ROUTE .STK-MED ONE Stop: 01/24/18 17:08 Last Admin: 01/24/18 17:12 Dose: 100 mcg Fentanyl/Bupivacaine HCl (Fentanyl/Bupivacaine/Ns 2 Mcg-0.125% 100 Ml) 100 ml EPIDUR ASDIRECTED [facility] Last Admin: 01/24/18 09:50 Dose: 100 ml Lactated Ringer's (Ringers, Lactated) Confirm Administered Dose 1,000 mls @ as directed .ROUTE .STK-MED ONE Stop: 01/24/18 08:28 Last Admin: 01/24/18 10:25 Dose: Not Given Lactated Ringer's (Ringers, Lactated) 1,000 mls @ 100 mls/hr IV ASDIRECTED [facility] Last Admin: 01/24/18 13:04 Dose: 999 mls/hr Oxytocin/Lactated Ringer's (Pitocin In Lr 10 Units/1,000 Ml) 10 unit in 1,000 mls @ 500 mls/hr IV ASDIRECTED CODY Oxytocin/Lactated Ringer's (Pitocin In Lr 10 Units/1,000 Ml) 10 unit in 1,000 mls @ 12 mls/hr IV TITRATE CODY; Protocol Last Titration: 01/24/18 14:49 Dose: 3 munits/min, 18 mls/hr Nalbuphine HCl (Nubain) 10 mg IVPUSH Q2H PRN PRN Reason: pain Last Admin: 01/24/18 08:57 Dose: 10 mg Ondansetron HCl (Zofran) 4 mg IVPUSH ONETIME PRN PRN Reason: Nausea/Vomiting Sodium Chloride (Saline Flush) 10 ml FLUSH ASDIRECTED PRN PRN Reason: Keep Vein Open - Exam General: Reports: Alert, Oriented HEENT: Reports: Pupils Equal, Pupils Reactive, EOMI, Mucous Membr. Moist/[place] Neck: Reports: Supple Lungs: Reports: Clear to Auscultation, Normal Respiratory Effort Cardiovascular: Reports: Regular Rate, Regular Rhythm GI/Abdominal Exam: Normal Bowel Sounds, Soft, Non-Tender, No Organomegaly, No Distention, No Abnormal Bruit, No Mass, Pelvis Stable Back Exam: Reports: Normal Inspection, Full Range of Motion Extremities: Normal Inspection, Normal Range of Motion, Non-Tender, No Pedal Edema, Normal Capillary Refill Skin: Reports: Warm, Dry, Intact Wound/Incisions: Reports: Healing Well Neurological: Reports: No New Focal Deficit Psy/Mental Status: Reports: Alert, Other (flat affect)
[2018-01-26] MEDS: Ibuprofen 600 MG Tab PO PRN (07:47)
[2018-01-26 09:04] VITALS: BP 124/81
== END 2018-01-26 11:30 | disposition home or self-care (01) | DRG 560 ==
LOC: JD.OBCHECK 03:35 → JD.OB 03:35 → JD.OBCHECK 08:35 → JD.OB 08:36 → OBSVTOIN 17:51 → JD.OB 17:52
PROVIDERS: ADMIT Obstetrics & Gynecology; ATTEND Obstetrics & Gynecology
PROC: 10907ZC Drainage of Amniotic Fluid, Therapeutic from Products of Conception, Via Natural or Artificial Opening (ICD-10-PCS; principal; 2018-01-24)
PROC: 0HQ9XZZ Repair Perineum Skin, External Approach (ICD-10-PCS; principal; 2018-01-24)
PROC: 10D07Z6 Extraction of Products of Conception, Vacuum, Via Natural or Artificial Opening (ICD-10-PCS; principal; 2018-01-24)
PROC: 00HU33Z Insertion of Infusion Device into Spinal Canal, Percutaneous Approach (ICD-10-PCS; 2018-01-24)
PROC: 3E0R3BZ Introduction of Anesthetic Agent into Spinal Canal, Percutaneous Approach (ICD-10-PCS; 2018-01-24)
DX: O24.420 Gestational diabetes mellitus in childbirth, diet controlled (principal); O99.344 Other mental disorders complicating childbirth; F32.9 Major depressive disorder, single episode, unspecified; F41.9 Anxiety disorder, unspecified; O99.334 Smoking (tobacco) complicating childbirth; F17.200 Nicotine dependence, unspecified, uncomplicated; O75.81 Maternal exhaustion complicating labor and delivery; Z3A.39 39 weeks gestation of pregnancy; Z37.0 Single live birth; Z88.8 Allergy status to other drugs, medicaments and biological substances; Z79.899 Other long term (current) drug therapy; O70.0 First degree perineal laceration during delivery; O77.0 Labor and delivery complicated by meconium in amniotic fluid
CPT/HCPCS: 01967; 36415; 51702; 59025; 59300; 59409; 80306; 81003; 82962; 85025; A9270-GY; J2300; J2590; J3010; J3490; J7120

== ENCOUNTER 2018-10-30 17:26 | Emergency (ER) | payer BC, MEDICAID ==
[2018-10-30 17:48] VITALS: BP 126/74
--- NOTE | 2018-10-30 19:11 | EDM.PDOC ---
ED HPI GENERAL MEDICAL PROBLEM - General Chief Complaint: Neck Problem Stated Complaint: NECK PAIN Time Seen by Provider: 10/30/18 18:55 Source of Information: Reports: Patient History Limitations: Reports: No Limitations - History of Present Illness INITIAL COMMENTS - FREE TEXT/NARRATIVE: 23 year old female presents for evaluation and treatment of neck pain. Patient reports this morning she was changing her 9 month old baby's diaper when she felt a sudden sharp pin to the left side of her neck. She reports she has been using OTC treatments throughout the day but the pain is worsening. Reports the pain and decreased ROM is affecting the care of her child. No numbness or tingling into her hands. No previous neck injuries or surgeries. Left Neck Pain Score (Numeric/FACES): 2 - Related Data Allergies Allergy/AdvReac Type Severity Reaction Status Date / Time quetiapine [From Seroquel] Allergy Anaphylactic Verified 10/30/18 17:44 Shock Home Meds: Home Meds [facility] Weight Loss Supplements. 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 ." Respiratory History: Reports: Asthma NIB ASSEMBLER History: Reports: Other NIB ASSEMBLER History: yeast infections Psychiatric History: Reports: Anxiety, Depression Other Endocrine/Metabolic History: gestational diabetes Hematologic History: Reports: Anemia Dermatologic History: Reports: Eczema - Past Surgical History HEENT Surgical History: Reports: Oral Surgery Social & Family History - Family History Family Medical History: Noncontributory - Tobacco Use Smoking Status *Q: Current Every Day Smoker Years of Tobacco use: 5 Packs/Tins Daily: 0.4 - Caffeine Use Caffeine Use: Reports: Coffee, Soda Caffeine Use Comment: unable to obtain - Living Situation & Occupation Living situation: Reports: Single Occupation: Unemployed (At present she claims that she does not have any place to live. Advised her to go to community action as they may be able to help her out in this regard.) ED ROS GENERAL - Review of Systems Review Of Systems: See Below Musculoskeletal: Reports: Neck Pain (primarily to the left). Denies: Arm Pain, Hand Pain Neurological: Reports: Tingling. Denies: Numbness ED EXAM, UPPER BACK/NECK PAIN - Physical Exam Exam: See Below Exam Limited By: No Limitations General Appearance: Alert, WD/WN, No Apparent Distress Ears Exam: Normal External Exam Nose Exam: Normal Inspection Head Exam: Atraumatic, Normocephalic Neck Exam: Normal Inspection, Painful Range of Motion (ROM testing deferred due to pain), Paraspinous Muscle Tender (left cervical spine C2-C6), Stiff Neck. No : Spinous Processes Tender Cardiovascular/Respiratory: Regular Rate, Rhythm, No M/R/G Extremities: Normal Inspection Neurologic: Alert, Normal Mood/Affect Psychiatric: Normal Affect, Normal Mood Skin Exam: Normal Color, Warm/Dry Course - Vital Signs Last Recorded V/S: Last Vital Signs Temp 98.0 F 10/30/18 17:45 Pulse 76 10/30/18 17:45 Resp 16 10/30/18 17:45 BP 126/74 10/30/18 17:45 Pulse Ox 97 10/30/18 17:45 - Orders/Labs/Meds Meds: Medications Discontinued Medications Generic Name Dose Route Start Last Admin Trade Name Freq PRN Reason Stop Dose Admin Ketorolac Tromethamine 60 mg 10/30/18 19:07 10/30/18 19:20 Toradol IM 10/30/18 19:08 60 mg ONETIME ONE Administration Departure - Departure Time of Disposition: 19:08 Disposition: Home, Self-Care 01 Condition: Fair Clinical Impression: Neck strain - Discharge Information *PRESCRIPTION DRUG MONITORING PROGRAM REVIEWED*: No *COPY OF PRESCRIPTION DRUG MONITORING REPORT IN PATIENT LEONID: No Prescriptions: Naproxen 500 mg PO BID #20 tablet Orphenadrine [Norflex] 100 mg PO BID PRN #20 tab PRN Reason: Muscle Spasm Instructions: Cervical Sprain, [id number] Referrals: PCP,None [Primary Care Provider] - Forms: ED Department Discharge Additional Instructions: Recommend using heat to the sore area for pain relief. May also try a topical products such as Icyhot or BenGay. You may take OTC tylenol as needed for pain. Take the naproxen 1 tab twice a day as needed for pain. Take the Norflex 1 tab twice daily as needed for muscle relaxation. Expected the soreness to last approximately one week. The first few days are worse. If your symptoms persist beyond 10 days follow-up with family medicine. move The neck is much as you are able to. Please return to the ER if your symptoms change or worsen.
[2018-10-30] MEDS: Ketorolac 60 MG/2 ML SDV IM ONE (19:20)
== END 2018-10-30 19:23 | disposition home or self-care (01) ==
LOC: JD.ED 17:26
DX: S16.1XXA Strain of muscle, fascia and tendon at neck level, initial encounter (principal); F17.210 Nicotine dependence, cigarettes, uncomplicated; F41.9 Anxiety disorder, unspecified; F32.9 Major depressive disorder, single episode, unspecified; Z88.8 Allergy status to other drugs, medicaments and biological substances; Z79.899 Other long term (current) drug therapy; X50.9XXA Other and unspecified overexertion or strenuous movements or postures, initial encounter
CPT/HCPCS: 96372; 99283; J1885

== ENCOUNTER 2019-06-07 19:21 | Emergency (ER) | payer BC, MEDICAID ==
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
[2019-06-07] MEDS ORDERED: Sodium Chloride 0.9% 1,000 ML IV SCH (19:45)
[2019-06-07] MEDS ORDERED: Ketorolac 30 MG/ML SDV IVPUSH ONE (21:52)
[2019-06-07 22:36] VITALS: BP 134/86; PULSE 93
--- NOTE | 2019-06-09 07:02 | CR ---
Chest: Portable view of the chest was obtained. Comparison: Previous chest x-ray of 03/11/16. Heart size and mediastinum are normal. Lungs are clear. Bony structures are unremarkable. Impression: 1. Nothing acute is seen on portable chest x-ray. Diagnostic code #1 This report was dictated in [place] Standard Time
== END 2019-06-07 22:30 | disposition home or self-care (01) ==
LOC: JD.ED 19:21
DX: M25.461 Effusion, right knee (principal); F19.11 Other psychoactive substance abuse, in remission; F32.9 Major depressive disorder, single episode, unspecified; Z88.8 Allergy status to other drugs, medicaments and biological substances; Z79.899 Other long term (current) drug therapy
CPT/HCPCS: 36415; 71045; 80053; 80306; 80320; 81001; 81025; 83735; 85025; 86140; 87040; 87086; 96361; 96374; 99284; J1885; J7030; G0480

== ENCOUNTER 2019-08-12 15:29 | Emergency (ER) | payer BC, MEDICAID | END 2019-08-12 17:00 | disposition left against medical advice (07) | LOC: JD.ED 15:29 | DX: Z53.21 Procedure and treatment not carried out due to patient leaving prior to being seen by health care provider (principal) ==

== ENCOUNTER 2019-08-25 13:51 | Emergency (ER) | payer BC, MEDICAID ==
[2019-08-25 14:29] VITALS: BP 114/81; PULSE 94
[2019-08-25 16:01] LABS: ACETAMINOPHEN 0 ug/mL (10-30)
--- NOTE | 2019-08-25 16:55 | EDM.PDOCBH ---
ED HPI GENERAL MEDICAL PROBLEM - General Chief Complaint: Drug or Alcohol Abuse Stated Complaint: MEDICAL CLEARANCE Time Seen by Provider: 08/25/19 15:02 Source of Information: Reports: Patient History Limitations: Reports: No Limitations - History of Present Illness INITIAL COMMENTS - FREE TEXT/NARRATIVE: Patient is a 24-year-old female who presents to the ER for medical clearance to go to the [facility]. Patient states that she was in the [facility] until yesterday when she signed herself out. She continued to go to day treatment from [id number] each day. She had a relapse of huffing compressed air early this morning. She had decided that she would like to go back to the [facility]. [facility] here to be medically cleared to go to the [facility] bed. She denies any alcohol use or any other drug use. 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 ." Cardiovascular History: Reports: None Respiratory History: Reports: Asthma Gastrointestinal History: Reports: None Genitourinary History: Reports: None 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 DYER 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 Social & Family History - Family History Family Medical History: Noncontributory - Tobacco Use Smoking Status *Q: Current Every Day Smoker Years of Tobacco use: 9 Packs/Tins Daily: 0.3 - Caffeine Use Caffeine Use: Reports: Coffee, Soda Caffeine Use Comment: unable to obtain - Recreational Drug Use Recreational Drug Use: Yes Drug Use in Last 12 Months: Yes Recreational Drug Type: Reports: Inhalants (Glues, Solvents, Aerosols) - Living Situation & Occupation Living situation: Reports: Single Occupation: Unemployed (At present she claims that she does not have any place to live. Advised her to go to [facility] as they may be able to help her out in this regard.) ED ROS GENERAL - Review of Systems Review Of Systems: Comprehensive ROS is negative, except as noted in HPI. ED EXAM, BEHAVIORAL HEALTH - Physical Exam Exam: See Below Exam Limited By: No Limitations General Appearance: Alert, WD/WN, No Apparent Distress Respiratory/Chest: No Respiratory Distress, Lungs Clear, Normal Breath Sounds, No Accessory Muscle Use, Chest Non-Tender Cardiovascular: Normal Peripheral Pulses, Regular Rate, Rhythm, No Edema, No Gallop, No JVD, No Murmur, No Rub Neurological: Alert, Normal Mood/Affect, CN II-XII Intact, Normal Cognition, Normal Gait, Normal Reflexes, No Motor/Sensory Deficits, Oriented x 3 Psychiatric: Alert, Normal Affect, Normal Cognition, Normal Mood, Oriented Skin Exam: Warm, Dry, Intact, Normal color, No rash COURSE, BEHAVIORAL HEALTH COMP - Course Vital Signs: Last Vital Signs Temp 98.6 F 08/25/19 14:27 Pulse 94 08/25/19 14:27 Resp 16 08/25/19 14:27 BP 114/81 08/25/19 14:27 Pulse Ox 100 08/25/19 14:27 Orders, Labs, Meds: Active Orders 24 hr Category Date Time Status EKG Documentation Completion [RC] ROUTINE Care 08/25/19 15:02 Active Laboratory Tests 08/25/19 08/25/19 08/25/19 Range/Units 15:18 15:18 15:18 WBC 6.88 (3.98-10.04) K/mm3 RBC 4.77 (3.98-5.22) M/mm3 Hgb 13.7 (11.2-15.7) gm/dl Hct 43.6 (34.1-44.9) % MCV 91.4 (79.4-94.8) fl MCH 28.7 (25.6-32.2) pg MCHC 31.4 L (32.2-35.5) g/dl RDW Std Deviation 44.8 (36.4-46.3) fL Plt Count 303 (182-369) K/mm3 MPV 8.6 L (9.4-12.3) fl Neutrophils % (Manual) 67 H (40-60) % Band Neutrophils % 2 (0-10) % Lymphocytes % (Manual) 24 (20-40) % Atypical Lymphs % 0 % Monocytes % (Manual) 6 (2-10) % Eosinophils % (Manual) 0 L (0.7-5.8) % Basophils % (Manual) 1 (0.1-1.2) Platelet Estimate Adequate RBC Morph Comment Normal Sodium 142 (136-145) mEq/L Potassium 4.1 (3.5-5.1) mEq/L Chloride 107 (98-107) mEq/L Carbon Dioxide 26 (21-32) mEq/L Anion Gap 13.1 (5-15) BUN 7 (7-18) mg/dL Creatinine 0.8 (0.55-1.02) mg/dL Est Cr Clr Drug Dosing 94.44 mL/min Estimated GFR (MDRD) > 60 (>60) mL/min BUN/Creatinine Ratio 8.8 L (14-18) Glucose 128 H (74-106) mg/dL Calcium 8.2 L (8.5-10.1) mg/dL Total Bilirubin 0.3 (0.2-1.0) mg/dL AST 20 (15-37) U/L ALT 20 (14-59) U/L Alkaline Phosphatase 340 H (46-116) U/L Total Protein 7.8 (6.4-8.2) g/dl Albumin 4.2 (3.4-5.0) g/dl Globulin 3.6 gm/dL Albumin/Globulin Ratio 1.2 (1-2) TSH 3rd Generation 0.987 (0.358-3.74) uIU/mL Urine HCG, Qual (NEGATIVE) Salicylates 1.6 L (2.8-20) mg/dL Urine Opiates Screen (DZFVIH=801) Ur Buprenorphine Scrn (CUTOFF=10) Ur Oxycodone Screen (LAN5IQ=458) Urine Methadone Screen (DFSDBN=082) Ur Propoxyphene Screen (PYCWMH=605) Acetaminophen 0 L (10-30) ug/mL Ur Barbiturates Screen (VFKYHT=730) Ur Tricyclics Screen (IWUWQR=651) Ur Phencyclidine Scrn (CUTOFF=25) Ur Amphetamine Screen (KGYBRI=536) U Methamphetamines Scrn (ASBHHM=966) U Benzodiazepines Scrn (BUAQKD=878) U Cocaine Metab Screen (RTOGDA=097) U Marijuana (THC) Screen (CUTOFF=50) Ethyl Alcohol 0.00 (0.00) gm% 08/25/19 08/25/19 Range/Units 16:10 16:16 WBC (3.98-10.04) K/mm3 RBC (3.98-5.22) M/mm3 Hgb (11.2-15.7) gm/dl Hct (34.1-44.9) % MCV (79.4-94.8) fl MCH (25.6-32.2) pg MCHC (32.2-35.5) g/dl RDW Std Deviation (36.4-46.3) fL Plt Count (182-369) K/mm3 MPV (9.4-12.3) fl Neutrophils % (Manual) (40-60) % Band Neutrophils % (0-10) % Lymphocytes % (Manual) (20-40) % Atypical Lymphs % % Monocytes % (Manual) (2-10) % Eosinophils % (Manual) (0.7-5.8) % Basophils % (Manual) (0.1-1.2) Platelet Estimate RBC Morph Comment Sodium (136-145) mEq/L Potassium (3.5-5.1) mEq/L Chloride (98-107) mEq/L Carbon Dioxide (21-32) mEq/L Anion Gap (5-15) BUN (7-18) mg/dL Creatinine (0.55-1.02) mg/dL Est Cr Clr Drug Dosing mL/min Estimated GFR (MDRD) (>60) mL/min BUN/Creatinine Ratio (14-18) Glucose (74-106) mg/dL Calcium (8.5-10.1) mg/dL Total Bilirubin (0.2-1.0) mg/dL AST (15-37) U/L ALT (14-59) U/L Alkaline Phosphatase (46-116) U/L Total Protein (6.4-8.2) g/dl Albumin (3.4-5.0) g/dl Globulin gm/dL Albumin/Globulin Ratio (1-2) TSH 3rd Generation (0.358-3.74) uIU/mL Urine HCG, Qual Negative (NEGATIVE) Salicylates (2.8-20) mg/dL Urine Opiates Screen Negative (NWDQKZ=098) Ur Buprenorphine Scrn Negative (CUTOFF=10) Ur Oxycodone Screen Negative (KZC1NY=373) Urine Methadone Screen Negative (EDCIJR=130) Ur Propoxyphene Screen Negative (AYVGNU=721) Acetaminophen (10-30) ug/mL Ur Barbiturates Screen Negative (DXXYND=669) Ur Tricyclics Screen Presumptive positive H (DYUYCI=431) Ur Phencyclidine Scrn Negative (CUTOFF=25) Ur Amphetamine Screen Negative (SDCXVT=390) U Methamphetamines Scrn Negative (HOLSVR=291) U Benzodiazepines Scrn Negative (KOYXBD=113) U Cocaine Metab Screen Negative (AJWHZK=194) U Marijuana (THC) Screen Negative (CUTOFF=50) Ethyl Alcohol (0.00) gm% Re-Assessment/Re-Exam: Complete psychiatric work-up has been ordered. After discussion, patient is uncertain if she wants to return to the [facility] bed or just continue with her day treatment. I strongly recommended that she use all the resources available to assist her. She continues to be uncertain. She will update us when she has made a decision. Lab results are still pending. 08/25/2019 1720 I was notified by nursing staff that the patient has decided to go home and not go to the [facility]. We will discharge her home with general recommendations. Discharge instructions as documented. Departure - Departure Time of Disposition: 17:22 Disposition: Home, Self-Care 01 Condition: Fair Clinical Impression: Drug dependence - Discharge Information *PRESCRIPTION DRUG MONITORING PROGRAM REVIEWED*: No *COPY OF PRESCRIPTION DRUG MONITORING REPORT IN PATIENT LEONID: No Instructions: Chemical Dependency Referrals: PCP,None [Primary Care Provider] - Additional Instructions: You were seen in the emergency department today for medical clearance to go to the [facility] bed. Medical clearance was completed, however ultimately decided to go home instead of going to the [facility] bed. Recommend that you continue to go to your day treatment and abstain from illicit drug use. Return to the ER as needed. Sepsis Event Note - Evaluation Sepsis Screening Result: No Definite Risk - Focused Exam Vital Signs: Vital Signs Temp Pulse Resp BP Pulse Ox 08/25/19 14:27 98.6 F 94 16 114/81 100 Date Exam was Performed: 08/25/19 Time Exam was Performed: 19:38 - My Orders Last 24 Hours: My Active Orders 08/25/19 15:02 EKG Documentation Completion [RC] ROUTINE - Assessment/Plan Last 24 Hours: My Active Orders 08/25/19 15:02 EKG Documentation Completion [RC] ROUTINE
== END 2019-08-25 17:49 | disposition home or self-care (01) ==
LOC: JD.ED 13:51
DX: F19.20 Other psychoactive substance dependence, uncomplicated (principal); F41.9 Anxiety disorder, unspecified; F32.9 Major depressive disorder, single episode, unspecified; F17.210 Nicotine dependence, cigarettes, uncomplicated; Z88.8 Allergy status to other drugs, medicaments and biological substances; Z79.899 Other long term (current) drug therapy
CPT/HCPCS: 36415; 80053; 80306; 80307; 81025; 84443; 85007; 85027; 93005; 93010; 99283; 99283-25

== ENCOUNTER 2019-08-27 15:29 | Emergency (ER) | payer BC, MEDICAID ==
[2019-08-27 16:02] VITALS: BP 121/77; PULSE 86
--- NOTE | 2019-08-27 16:28 | EDM.PDOC ---
ED HPI GENERAL MEDICAL PROBLEM - General Chief Complaint: Behavioral/Psych Stated Complaint: MEDICAL CLEARANCE TO GO TO [facility] Time Seen by Provider: 08/27/19 16:07 Source of Information: Reports: Patient, RN Notes Reviewed History Limitations: Reports: No Limitations - History of Present Illness INITIAL COMMENTS - FREE TEXT/NARRATIVE: Patient is a 24-year-old female who presents to the ED for medical clearance to go to [facility]. Patient was most recently evaluated in this ER roughly 2 days ago, and was medically cleared at that time, but decided not to go to the [facility]. Her work-up included CBC, CMP, EKG, urine drug screen, TSH, Tylenol level, salicylate level, and a EtOH level. The patient states that she has been using aerosol duster cans, that she inhales, sometimes up to 4 cans/day. She notes that she has been doing this since May. But then again Thursday she does not use this at all. Patient states that she has not gone through withdrawal from this. She is not complaining of any self-harm at this time, nor is she hearing or seeing things that are not there. Patient states that all of her medications are still at [facility] so she has not taken any of these medications in the last few days. Patient is not complaining of any fever/chills, nausea/ vomiting/diarrhea, chest pain/shortness of breath. 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 Social & Family History - Family History Family Medical History: Noncontributory - Tobacco Use Smoking Status *Q: Current Every Day Smoker Years of Tobacco use: 5 Packs/Tins Daily: 0.2 - Caffeine Use Caffeine Use: Reports: Soda Caffeine Use Comment: unable to obtain - Recreational Drug Use Recreational Drug Use: Yes Drug Use in Last 12 Months: Yes Recreational Drug Type: Reports: Inhalants (Glues, Solvents, Aerosols), Methamphetamine Other Recreational Drug Type: no meth in the past 4 years, inhales air duster - Living Situation & Occupation Living situation: Reports: Single Occupation: Unemployed (At present she claims that she does not have any place to live. [facility]vised [facility] to [facility] to [facility] as they may be able to help her out in this regard.) ED ROS GENERAL - Review of Systems Review Of Systems: Comprehensive ROS is negative, except as noted in HPI. ED EXAM, GENERAL - Physical Exam Exam: See Below Exam Limited By: No Limitations General Appearance: Alert, WD/WN, No Apparent Distress, Anxious (pt is tearful and anxious at time of exam, but easilly consolable) Eye Exam: Bilateral Eye: EOMI, Normal Inspection, PERRL Ears: Normal External Exam Nose: Normal Inspection Throat/Mouth: Normal Inspection, Normal Lips, Normal Teeth, Normal Gums, Normal Voice, No Airway Compromise, Inflammation Head: Atraumatic, Normocephalic Neck: Normal Inspection Respiratory/Chest: No Respiratory Distress, Lungs Clear, Normal Breath Sounds, No Accessory Muscle Use, Chest Non-Tender Cardiovascular: Normal Peripheral Pulses, Regular Rate, Rhythm, No Edema, No Murmur Peripheral Pulses: 3+: Radial (L), Radial (R) GI/Abdominal: Normal Bowel Sounds, Soft, Non-Tender, No Distention, No Mass Extremities: Normal Inspection, Normal Capillary Refill Neurological: Alert, Oriented, Normal Cognition, No Motor/Sensory Deficits Psychiatric: Anxious, Tearful Skin Exam: Warm, Dry, Intact, Normal Color, No Rash Course - Vital Signs Last Recorded V/S: Last Vital Signs Temp 97.3 F 08/27/19 15:55 Pulse 86 08/27/19 15:55 Resp 20 08/27/19 15:55 BP 121/77 08/27/19 15:55 Pulse Ox 100 08/27/19 15:55 - Orders/Labs/Meds Labs: Laboratory Tests 08/27/19 Range/Units 16:46 Urine Opiates Screen Negative (PTSRIZ=786) Ur Buprenorphine Scrn Negative (CUTOFF=10) Ur Oxycodone Screen Negative (RRR1LE=248) Urine Methadone Screen Negative (UZQZGP=665) Ur Propoxyphene Screen Negative (RJHPQF=035) Ur Barbiturates Screen Negative (HQNUWJ=753) Ur Tricyclics Screen Presumptive positive H (MCDDWS=014) Ur Phencyclidine Scrn Negative (CUTOFF=25) Ur Amphetamine Screen Negative (XGTKCV=529) U Methamphetamines Scrn Negative (RPJZEV=531) U Benzodiazepines Scrn Negative (AFEVUS=484) U Cocaine Metab Screen Negative (VYAWLW=734) U Marijuana (THC) Screen Negative (CUTOFF=50) - Re-Assessments/Exams Free Text/Narrative Re-Assessment/Exam: 08/27/19 16:26 Patient presents to the ED for medical clearance to be admitted back into [facility]. Babita at [facility] was contacted regarding repeat testing as the patient most recently had blood work done 2 days ago, and I highly suspect there to be any abnormalities on the blood work portion. I will go ahead and repeat a urine drug screen for confirmation, she was going to call nursing staff to see if we needed to repeat the EtOH level, patient does not recount any alcohol use in the last 2 days, nor does she appear acutely intoxicated. I do believe that Babita think she would appropriate to be admitted to the crisis bed, and they will be up to evaluate the patient. 08/27/19 17:08 Was told by nursing staff and [facility] staff, that the patient does not want to adhere by the rules, and is wanting to go home at this time. She has found a friend to take her home. She did provide us with a urine sample. However she is walking appropriately, talking appropriately, so she will be discharged at this time. Departure - Departure Time of Disposition: 17:13 Disposition: Home, Self-Care 01 Condition: Fair Clinical Impression: Inhalant abuse - Discharge Information *PRESCRIPTION DRUG MONITORING PROGRAM REVIEWED*: No *COPY OF PRESCRIPTION DRUG MONITORING REPORT IN PATIENT LEONID: No Instructions: Inhalant Use Disorder Referrals: PCP,None [Primary Care Provider] - Forms: ED Department Discharge Additional Instructions: You have been evaluated in the ED for your inhalant drug abuse. You have been discharged home at this time, as you wish not to go to the [facility] due to their regulations. Recommend you follow-up with a regular care provider, so you may get your medications refilled and resume taking them as previously prescribed. Or try to obtain your medications from [facility] so that you can start taking them as previously prescribed. Recommend you follow-up with lois leon on Thursday , for day treatment of sorts. Please try to refrain from inhalant drug abuse at this time. Please return to the ED at any time if symptoms change or worsen. Sepsis Event Note - Evaluation Sepsis Screening Result: No Definite Risk - Focused Exam Vital Signs: Vital Signs Temp Pulse Resp BP Pulse Ox 08/27/19 15:55 97.3 F 86 20 121/77 100 Date Exam was Performed: 08/27/19 Time Exam was Performed: 17:08
== END 2019-08-27 17:21 | disposition home or self-care (01) ==
LOC: JD.ED 15:29
DX: F18.10 Inhalant abuse, uncomplicated (principal); F41.9 Anxiety disorder, unspecified; F32.9 Major depressive disorder, single episode, unspecified; F17.210 Nicotine dependence, cigarettes, uncomplicated; Z88.8 Allergy status to other drugs, medicaments and biological substances; Z79.899 Other long term (current) drug therapy
CPT/HCPCS: 80306; 99283

== ENCOUNTER 2019-11-29 17:15 | Day surgery (SDC) | payer BC, MEDICAID ==
--- NOTE | 2019-11-29 17:58 | CR ---
Abdomen: Supine view of the abdomen was obtained. Foreign body projected within the pelvis located at the junction of the rectum and sigmoid colon. Bowel gas pattern is normal. Bony structures are unremarkable. Small calcification is noted within the right side the pelvis compatible with phlebolith. Bony structures are unremarkable. Impression: 1. Foreign body as noted above. Diagnostic code #2 This report was dictated in MDT
--- NOTE | 2019-11-29 18:08 | EDM.PDOC ---
ED HPI GENERAL MEDICAL PROBLEM - General Chief Complaint: Gastrointestinal Problem Stated Complaint: FOREIGN OBJECT IN RECTUM Time Seen by Provider: 11/29/19 17:19 Source of Information: Reports: Patient History Limitations: Reports: No Limitations - History of Present Illness INITIAL COMMENTS - FREE TEXT/NARRATIVE: Patient is a 24-year-old female who presents to the emergency department with complaints of a 3 inch x 1 inch shaped sex toy stuck in her rectum. She states it was inserted proximally 1 hour prior to coming to the ER. She has attempted manual retrieval at home, however she can no longer feel it with her finger. States she did have a small amount of bleeding to the rectal area due to trauma of trying to remove it. Denies any pain at this time. Patient does have a significant history of substance abuse, however on numerous occasions she denies any drug or alcohol use today. 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 ." Cardiovascular History: Reports: None Respiratory History: Reports: Asthma Gastrointestinal History: Reports: None Genitourinary History: Reports: None 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 Neurological History: Reports: None Psychiatric History: Reports: Addiction, Anxiety, Depression Endocrine/Metabolic History: Reports: Other (See Below) Other Endocrine/Metabolic History: gestational diabetes Hematologic History: Reports: Anemia Immunologic History: Reports: None Oncologic (Cancer) History: Reports: None Dermatologic History: Reports: Eczema - Infectious Disease History Infectious Disease History: Reports: None - Past Surgical History HEENT Surgical History: Reports: Oral Surgery Musculoskeletal Surgical History: Reports: Other (See Below) Other Musculoskeletal Surgeries/Procedures:: Fluid drained from right knee. Social & Family History - Family History Family Medical History: Noncontributory - Tobacco Use Smoking Status *Q: Current Every Day Smoker Years of Tobacco use: 1 Packs/Tins Daily: 0.5 - Caffeine Use Caffeine Use: Reports: None Caffeine Use Comment: unable to obtain - Recreational Drug Use Recreational Drug Use: No - Living Situation & Occupation Living situation: Reports: Single Occupation: Unemployed (At present she claims that she does not have any place to live. [facility] as they may be able to help her out in this regard.) ED ROS GENERAL - Review of Systems Review Of Systems: Comprehensive ROS is negative, except as noted in HPI. ED EXAM, GI/ABD - Physical Exam Exam: See Below Exam Limited By: No Limitations General Appearance: Alert, WD/WN, No Apparent Distress Respiratory/Chest: No Respiratory Distress, Lungs Clear, Normal Breath Sounds, No Accessory Muscle Use, Chest Non-Tender Cardiovascular: Normal Peripheral Pulses, Regular Rate, Rhythm, No Edema, No Gallop, No JVD, No Murmur, No Rub Neurological: Alert, Oriented, CN II-XII Intact, Normal Cognition, Normal Gait, Normal Reflexes, No Motor/Sensory Deficits Psychiatric: Normal Affect, Normal Mood Skin Exam: Warm, Dry, Intact, Normal Color, No Rash Course - Vital Signs Last Recorded V/S: Last Vital Signs Temp 98.7 F 11/29/19 18:41 Pulse 92 11/29/19 18:41 Resp 18 11/29/19 18:41 BP 121/79 11/29/19 18:41 Pulse Ox 100 11/29/19 18:41 - Orders/Labs/Meds Orders: Active Orders 24 hr Category Date Time Status Patient Status [ADT] Routine ADT 11/29/19 18:28 Active Communication Order [RC] ROUTINE Care 11/29/19 19:00 Active Cooling Warming Measures [RC] ASDIRECTED Care 11/29/19 19:00 Active Notify Provider [RC] ASDIRECTED Care 11/29/19 19:00 Active Oxygen Therapy [RC] ASDIRECTED Care 11/29/19 19:00 Active Pulse Oximetry [RC] ASDIRECTED Care 11/29/19 19:00 Active Vital Signs [RC] Q15M Care 11/29/19 19:00 Active Schedule Procedure [COMM] Stat Oth 11/29/19 18:29 Ordered Labs: Laboratory Tests 11/29/19 Range/Units 18:15 HCG, Qual Negative (NEGATIVE) Meds: Medications Discontinued Medications Generic Name Dose Route Start Last Admin Trade Name Anh PRN Reason Stop Dose Admin Fentanyl Confirm 11/29/19 18:58 Sublimaze Administered 11/29/19 18:59 Dose 100 mcg .ROUTE .STK-MED ONE Hydromorphone HCl Confirm 11/29/19 19:08 Dilaudid Administered 11/29/19 19:09 Dose 1 mg .ROUTE .STK-MED ONE Lidocaine HCl Confirm 11/29/19 18:57 Xylocaine-Mpf 1% Administered 11/29/19 18:58 Dose 6 mls @ as directed .ROUTE .STK-MED ONE Lactated Ringer's Confirm 11/29/19 18:57 Ringers, Lactated Administered 11/29/19 18:58 Dose 2,000 mls @ as directed .ROUTE .STK-MED ONE Midazolam HCl Confirm 11/29/19 18:57 Versed 2 Mg/Ml Administered 11/29/19 18:58 Dose 10 mg .ROUTE .STK-MED ONE Midazolam HCl Confirm 11/29/19 18:58 Versed 1 Mg/Ml Administered 11/29/19 18:59 Dose 2 mg .ROUTE .STK-MED ONE Ondansetron HCl Confirm 11/29/19 18:57 Zofran Administered 11/29/19 18:58 Dose 4 mg .ROUTE .STK-MED ONE Propofol Confirm 11/29/19 18:58 Diprivan 20 Ml Administered 11/29/19 18:59 Dose 200 mg .ROUTE .STK-MED ONE - Re-Assessments/Exams Free Text/Narrative Re-Assessment/Exam: 11/29/19 18:08 Abdomen flat x-ray shows a foreign object far up in the rectum near the sigmoid colon. Object is at approximately a 45 degree angle. Called and spoke with the on-call surgeon, Dr. Denis. She requested we call in the OR crew to do a colonoscopy with retrieval. Departure - Departure Time of Disposition: 18:08 Disposition: DC/Tfer to [facility] Condition: Good Clinical Impression: Foreign body of rectum - Discharge Information Sepsis Event Note (ED) - Evaluation Sepsis Screening Result: No Definite Risk - Focused Exam Vital Signs: Vital Signs Temp Pulse Resp BP Pulse Ox 11/29/19 18:41 98.7 F 92 18 121/79 100 11/29/19 17:25 98.4 F 108 H 18 116/69 99 - My Orders Last 24 Hours: My Active Orders 11/29/19 18:28 Patient Status [ADT] Routine 11/29/19 18:29 Schedule Procedure [COMM] Stat - Assessment/Plan Last 24 Hours: My Active Orders 11/29/19 18:28 Patient Status [ADT] Routine 11/29/19 18:29 Schedule Procedure [COMM] Stat
--- NOTE | 2019-11-29 18:21 | PCM.PREANE ---
Preanesthetic Assessment - Anesthesia/Transfusion/Family Hx Anesthesia History: Prior Anesthesia Without Reaction Family History of Anesthesia Reaction: No Transfusion History: No Prior Transfusion(s) Intubation History: Unknown - Review of Systems General: No Symptoms (bline in left eye since ) Pulmonary: No Symptoms (Smoker: /Asthma) Cardiovascular: No Symptoms, Palpitations (with panic attacks) Gastrointestinal: No Symptoms Neurological: No Symptoms (History of drug abuse) Other: Reports: None, Depression, Anxiety - Physical Assessment NPO Status Date: 11/29/19 NPO Status Time: 17:30 Vital Signs: Last Vital Signs Temp 36.9 C 11/29/19 17:25 Pulse 108 H 11/29/19 17:25 Resp 18 11/29/19 17:25 BP 116/69 11/29/19 17:25 Pulse Ox 99 11/29/19 17:25 Height: 1.63 m Weight: 72.575 kg ASA Class: 2E Mental Status: Alert & Oriented x3 Airway Class: Mallampati = 2 Dentition: Reports: Normal Dentition, Caries Thyro-Mental Finger Breadths: 3 Mouth Opening Finger Breadths: 3 ROM/Head Extension: Full Lungs: Clear to Auscultation, Normal Respiratory Effort Cardiovascular: Regular Rate, Regular Rhythm, No Murmurs - Allergies Allergies/Adverse Reactions: Allergies Allergy/AdvReac Type Severity Reaction Status Date / Time quetiapine [From Seroquel] Allergy Anaphylactic Verified 11/29/19 17:27 Shock - Anesthesia Plan Pre-Op Medication Ordered: None - Acknowledgements Anesthesia Type Planned: General Anesthesia Pt an Appropriate Candidate for the Planned Anesthesia: Yes Alternatives and Risks of Anesthesia Discussed w Pt/Guardian: Yes Pt/Guardian Understands and Agrees with Anesthesia Plan: Yes PreAnesthesia Questionnaire - Past Health History Medical/Surgical History: Denies Medical/Surgical History HEENT History: Reports: Impaired Vision Other HEENT History: 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 ." Cardiovascular History: Reports: None Respiratory History: Reports: Asthma Gastrointestinal History: Reports: None Genitourinary History: Reports: None 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 Neurological History: Reports: None Psychiatric History: Reports: Addiction, Anxiety, Depression Endocrine/Metabolic History: Reports: Other (See Below) Other Endocrine/Metabolic History: gestational diabetes Hematologic History: Reports: Anemia Immunologic History: Reports: None Oncologic (Cancer) History: Reports: None Dermatologic History: Reports: Eczema - Infectious Disease History Infectious Disease History: Reports: None - Past Surgical History HEENT Surgical History: Reports: Oral Surgery Musculoskeletal Surgical History: Reports: Other (See Below) Other Musculoskeletal Surgeries/Procedures:: Fluid drained from right knee. - SUBSTANCE USE Smoking Status *Q: Current Every Day Smoker Recreational Drug Use History: No - HOME MEDS Home Medications: Home Meds Amitriptyline [Elavil] 50 mg PO BEDTIME 06/07/19 [History] Venlafaxine [Effexor] 0 mg PO DAILY 06/07/19 [History] clonazePAM [Klonopin] 0.75 mg PO BID 06/07/19 [History] Prazosin HCl [Prazosin] 1 mg PO BEDTIME 08/25/19 [History]
[2019-11-29 18:42] VITALS: PULSE 92
--- NOTE | 2019-11-29 18:45 | PCM.HP.2 ---
H&P History of Present Illness - General Date of Service: 11/29/19 Admit Problem/Dx: Admission Diagnosis/Problem Admission Diagnosis/Problem Foreign body in anus and rectum Source of Information: Patient, Provider History Limitations: Reports: No Limitations - History of Present Illness Initial Comments - Free Text/Narative: The patient is a 24 y/o lady who presents with a foreign body in the rectum/colon. She was at home when this occurred. The object does contain a battery. the patient did try to retrieve the object, but was not successful. She did cause some bleeding when she attempted this. She denies any pain currently. She has no prior occurrence with this type of situation. Her last bowel movement was about 2 days ago. She denies any recent alcohol or drug use. In the emergency department she had an x-ray of the abdomen which shows the object likely in the distal sigmoid colon. - Related Data Allergies/Adverse Reactions: Allergies Allergy/AdvReac Type Severity Reaction Status Date / Time quetiapine [From Seroquel] Allergy Anaphylactic Verified 11/29/19 17:27 Shock Home Medications: Home Meds Amitriptyline [Elavil] 50 mg PO BEDTIME 06/07/19 [History] Venlafaxine [Effexor] 0 mg PO DAILY 06/07/19 [History] clonazePAM [Klonopin] 0.75 mg PO BID 06/07/19 [History] Prazosin HCl [Prazosin] 1 mg PO BEDTIME 08/25/19 [History] Past Medical History - Past Health History Medical/Surgical History: Denies Medical/Surgical History HEENT History: Reports: Impaired Vision Other HEENT History: 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 ." Cardiovascular History: Reports: None Respiratory History: Reports: Asthma Gastrointestinal History: Reports: None Genitourinary History: Reports: None 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: yeast infections Neurological History: Reports: None Psychiatric History: Reports: Addiction, Anxiety, Depression Endocrine/Metabolic History: Reports: Other (See Below) Other Endocrine/Metabolic History: gestational diabetes Hematologic History: Reports: Anemia Immunologic History: Reports: None Oncologic (Cancer) History: Reports: None Dermatologic History: Reports: Eczema - Infectious Disease History Infectious Disease History: Reports: None - Past Surgical History HEENT Surgical History: Reports: Oral Surgery Musculoskeletal Surgical History: Reports: Other (See Below) Other Musculoskeletal Surgeries/Procedures:: Fluid drained from right knee. Social & Family History - Family History Cardiac: Reports: [place] Neurological: Reports: CVA - Tobacco Use Smoking Status *Q: Current Every Day Smoker Years of Tobacco use: 1 Packs/Tins Daily: 0.5 - Caffeine Use Caffeine Use: Reports: None Caffeine Use Comment: unable to obtain - Recreational Drug Use Recreational Drug Use: No - Living Situation & Occupation Living situation: Reports: Single Occupation: Unemployed (At present she claims that she does not have any place to live. Advised her to go to [facility] as they may be able to help her out in this regard.) H&P Review of Systems - Review of Systems: Review Of Systems: See Below General: Reports: No Symptoms HEENT: Reports: No Symptoms Pulmonary: Reports: No Symptoms Cardiovascular: Reports: No Symptoms Gastrointestinal: Reports: No Symptoms Genitourinary: Reports: No Symptoms Musculoskeletal: Reports: No Symptoms Skin: Reports: No Symptoms Neurological: Reports: No Symptoms Hematologic/Lymphatic: Reports: No Symptoms Exam - Exam Exam: See Below - Vital Signs Vital Signs: Last Vital Signs Temp 36.9 C 11/29/19 17:25 Pulse 108 H 11/29/19 17:25 Resp 18 11/29/19 17:25 BP 116/69 11/29/19 17:25 Pulse Ox 99 11/29/19 17:25 Weight: 72.575 kg - Exam Quality Assessment: No: Supplemental Oxygen General: Alert, Oriented HEENT: Conjunctiva Clear, EOMI Neck: Supple Lungs: Normal Respiratory Effort GI/Abdominal Exam: Soft, Non-Tender, No Distention Extremities: Other (Recent scarring over the right knee from surgery) Skin: Warm, Dry, Intact Neurological: Cranial Nerves Intact Psychiatric: Other (Tearful) Sepsis Event Note - Evaluation Sepsis Screening Result: No Definite Risk - Focused Exam Vital Signs: Vital Signs Temp Pulse Resp BP Pulse Ox 11/29/19 17:25 36.9 C 108 H 18 116/69 99 Date Exam was Performed: 11/29/19 Time Exam was Performed: 18:46 *Q Meaningful Use (ADM) - VTE Risk Assess *Q Each Risk Factor Represents 1 Point: None Total Score 1 Point Risk Factors: 0 - Problem List (1) Foreign body in anus and rectum, initial encounter SNOMED Code(s): 058917109 ICD Code: T18.5XXA - FOREIGN BODY IN ANUS AND RECTUM, INITIAL ENCOUNTER Status: Acute Current Visit: Yes (2) History of substance abuse SNOMED Code(s): 043261512 ICD Code: F19.11 - OTHER PSYCHOACTIVE SUBSTANCE ABUSE, IN REMISSION Status: Acute Current Visit: No Problem List Initiated/Reviewed/Updated: Yes Orders Last 24hrs: Active Orders 24 hr Category Date Time Status Patient Status [ADT] Routine ADT 11/29/19 18:28 Active HCG QUALITATIVE,SERUM [CHEM] Stat Lab 11/29/19 18:15 Received Schedule Procedure [COMM] Stat Oth 11/29/19 18:29 Ordered Assessment/Plan Comment:: 24 y/o lady with foreign body in the rectum, perhaps has traveled to the sigmoid. - plan for colonoscopy for retrieval. Discussed risk of perforation. Her written consent was obtained. - NPO Will evaluate for colon injury during colonoscopy. Haven Rodriguez MD General surgery - Mortality Measure Prognosis:: Good
[2019-11-29] MEDS ORDERED: Lactated Ringers 2,000 ML ONE (18:57)
[2019-11-29] MEDS ORDERED: Lidocaine 1% 6 ML ONE (18:57)
[2019-11-29] MEDS ORDERED: Ondansetron 4 MG/2 ML SDV ONE (18:57)
[2019-11-29] MEDS ORDERED: Succinylcholine/Sod PF 100 MG/5 ML SYRINGE IV ONE (18:57)
[2019-11-29] MEDS ORDERED: Midazolam Oral Soln 10 MG/5 ML Oral Syringe ONE (18:57)
[2019-11-29] MEDS ORDERED: fentaNYL 100 MCG/2 ML SDV ONE (18:58)
[2019-11-29] MEDS ORDERED: Propofol 200 MG/20 ML SDV ONE (18:58)
[2019-11-29] MEDS ORDERED: Midazolam 1 MG/ML 2 ML SDV ONE (18:58)
[2019-11-29] MEDS ORDERED: HYDROmorphone 1 MG/ML Syringe ONE (19:08)
--- NOTE | 2019-11-29 19:39 | PCM.OPNOTE ---
- General Post-Op/Procedure Note Date of Surgery/Procedure: 11/29/19 Operative Procedure(s): sigmoidoscopy with retrieval of foreign body Findings: foreign body in sigmoid Pre Op Diagnosis: foreign body in rectum Post-Op Diagnosis: foreign body in sigmoid Anesthesia Technique: General ET Tube Primary Surgeon: Haven Rodriguez Anesthesia Provider: Alejandra Garcia Pathology: none Fluid Replacement, Intraop: 800 Output, Urine Amount: 0 EBL in mLs: 0 Complications: none apparent Condition: Good
--- NOTE | 2019-11-29 19:44 | PCM.PRNOTE ---
- Free Text/Narrative Note: Operative Report Date of surgery: November 29, 2019 Preoperative diagnosis: Foreign body in rectum Postoperative diagnosis: Foreign body in the sigmoid Procedure: Sigmoidoscopy with retrieval of foreign body Surgeon: Dr. Haven Rodriguez Anesthesia: General ET Family And Consumer Education Teacher: Alejandra Garcia CRNA Estimated blood loss: 0 mL IV fluids: 800 mL Urine output: 0 mL Drains and lines: 0 Findings: Foreign body in the sigmoid Pathology: None Indication for the procedure: The patient is a 24-year-old female who presented to the emergency department with foreign body in the rectum. She did try to retrieve this at home was not successful. We discussed colonoscopy with retrieval of this foreign body. Discussed risks of perforation, written consent was obtained. Description of the procedure: The patient was taken back to the procedure room and placed in supine position. She had successful induction of general anesthesia and was intubated without difficulty. She was then positioned in left lateral decubitus position. A surgical timeout was performed we began by inserting the colonoscope into the rectum. The foreign body was visible at the rectosigmoid junction and extending into the sigmoid. A hexagonal snare was then passed over the end of the foreign body. It was then slowly withdrawn into the rectum and out of the body. The scope was then returned into the body. There did not appear to be any significant injury to the surrounding area. There were a few scratches noted in the mucosa in the rectum. There was significant formed stool however that prevented visualization of the sigmoid colon. The scope was advanced slightly into the sigmoid, but this was not able to be visualized well and the scope was withdrawn. The patient tolerated the procedure well. She was awakened from general anesthesia and extubated without difficulty. She was transported to the PACU in stable condition. Haven Rodriguez MD General Surgery
--- NOTE | 2019-11-29 19:58 | PCM.POSTAN ---
POST ANESTHESIA ASSESSMENT - MENTAL STATUS Mental Status: Alert - VITAL SIGNS Vital Signs: Last Vital Signs Temp 97.9 11/29/19 19:45 Pulse 93 11/29/19 19:45 Resp 10 11/29/19 19:45 BP 113/89 11/29/19 19:45 Pulse Ox 100 11/29/19 19:45 - RESPIRATORY Respiratory Status: Respiratory Rate WNL, Airway Patent, O2 Saturation Stable - CARDIOVASCULAR CV Status: Pulse Rate WNL, Blood Pressure Stable - GASTROINTESTINAL GI Status: No Symptoms - POST OP HYDRATION Hydration Status: Adequate & Stable
[2019-11-29 20:32] VITALS: BP 124/88
--- NOTE | 2019-11-29 20:44 | PCM48HPAN ---
Post Anesthesia Note - EVALUATION WITHIN 48HRS OF ANESTHETIC Vital Signs in Normal Range: Yes Patient Participated in Evaluation: Yes Respiratory Function Stable: Yes Airway Patent: Yes Cardiovascular Function Stable: Yes Hydration Status Stable: Yes Pain Control Satisfactory: Yes Nausea and Vomiting Control Satisfactory: Yes Mental Status Recovered: Yes Vital Signs: Last Vital Signs Temp 36.7 C 11/29/19 20:30 Pulse 92 11/29/19 18:41 Resp 19 11/29/19 20:30 BP 124/88 11/29/19 20:30 Pulse Ox 97 11/29/19 20:30
== END 2019-11-29 20:37 | disposition home or self-care (01) ==
LOC: JD.ED 17:15 → JD.SDS 18:28
PROVIDERS: ATTEND Surgery
DX: T18.5XXA Foreign body in anus and rectum, initial encounter (principal); F19.11 Other psychoactive substance abuse, in remission; J45.909 Unspecified asthma, uncomplicated; F41.9 Anxiety disorder, unspecified; F32.9 Major depressive disorder, single episode, unspecified; F17.210 Nicotine dependence, cigarettes, uncomplicated; Z88.8 Allergy status to other drugs, medicaments and biological substances; Z79.899 Other long term (current) drug therapy
CPT/HCPCS: 36415; 45332; 74018; 84703; J0330; J1170; J2001; J2250; J2405; J2704; J3010; J7120; A9270-GY

== ENCOUNTER 2020-12-10 11:34 | Emergency (ER) | payer BC ==
[2020-12-10 12:00] VITALS: BP 116/73; PULSE 86
[2020-12-10] MEDS ORDERED: Ondansetron 4 MG/2 ML SDV IVPUSH ONE (12:18)
[2020-12-10] MEDS ORDERED: Famotidine 20 MG/2 ML SDV IVPUSH ONE (12:18)
[2020-12-10] MEDS ORDERED: Sodium Chloride 0.9% 10 ML Syringe FLUSH PRN (12:18)
[2020-12-10] MEDS ORDERED: Sodium Chloride 0.9% 1,000 ML IV SCH (12:30)
--- NOTE | 2020-12-10 13:42 | EDM.PDOC ---
ED HPI GENERAL MEDICAL PROBLEM - General Chief Complaint: Abdominal Pain Stated Complaint: ABDOMINAL PAIN Time Seen by Provider: 12/10/20 11:52 Source of Information: Reports: Patient, RN Notes Reviewed - History of Present Illness INITIAL COMMENTS - FREE TEXT/NARRATIVE: 25 yr old female with C/O abd pain that she has had for many days. Also concerned about back pain that she has had for much longer period of time. No recent injury. Has been vomiting off and on the last few days. No diarrhea. Has been a bit constipated. No fever, chills, chest pain or difficulty breathing. Lower Back Pain Score (Numeric/FACES): 9 Middle Abdomen Pain Score (Numeric/FACES): 10 - Related Data Allergies Allergy/AdvReac Type Severity Reaction Status Date / Time quetiapine [From Seroquel] Allergy Severe Anaphylactic Verified 12/10/20 11:54 Shock Home Meds: Home Meds Amitriptyline [Elavil] 50 mg PO BEDTIME 06/07/19 [History] Venlafaxine [Effexor] 0 mg PO DAILY 06/07/19 [History] clonazePAM [Klonopin] 0.75 mg PO BID 06/07/19 [History] Prazosin HCl [Prazosin] 1 mg PO BEDTIME 08/25/19 [History] Adapalene [Differin 0.1% Crm] 1 applic TOP BEDTIME 08/16/20 [History] Lurasidone [Latuda] 20 mg PO DAILY 08/16/20 [History] Minocycline [Minocin] 100 mg PO DAILY 08/16/20 [History] Propranolol [Inderal] 10 mg PO DAILY 08/16/20 [History] hydrOXYzine HCL [Atarax] 50 mg PO ASDIRECTED 08/16/20 [History] lamoTRIgine [LaMICtal] 150 mg PO DAILY 08/16/20 [History] Ondansetron [Zofran ODT] 4 mg PO Q8HR PRN #7 tab.dis 12/10/20 [Rx] Past Medical History - Past Health History Medical/Surgical History: Denies Medical/Surgical History HEENT History: Reports: Impaired Vision Other HEENT History: 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 ." Cardiovascular History: Reports: None Respiratory History: Reports: Asthma Gastrointestinal History: Reports: None Genitourinary History: Reports: None THINNER SPRAYER History: Reports: Other THINNER SPRAYER History: yeast infections Neurological History: Reports: None Psychiatric History: Reports: Addiction, Anxiety, Depression Endocrine/Metabolic History: Reports: Other (See Below) Other Endocrine/Metabolic History: gestational diabetes Hematologic History: Reports: Anemia Immunologic History: Reports: None Oncologic (Cancer) History: Reports: None Dermatologic History: Reports: Eczema - Infectious Disease History Infectious Disease History: Reports: None - Past Surgical History HEENT Surgical History: Reports: Oral Surgery Other Respiratory Surgeries/Procedures: hasn't used inhaler since early in Musculoskeletal Surgical History: Reports: Other (See Below) Other Musculoskeletal Surgeries/Procedures:: Fluid drained from right knee. Social & Family History - Family History Family Medical History: No Pertinent Family History Cardiac: Reports: [place] Neurological: Reports: CVA - Tobacco Use Tobacco Use Status *Q: Current Every Day Tobacco User Years of Tobacco use: 8 Packs/Tins Daily: 0.5 - Caffeine Use Caffeine Use: Reports: Coffee Caffeine Use Comment: unable to obtain - Recreational Drug Use Recreational Drug Use: No - Living Situation & Occupation Living situation: Reports: Single Occupation: Unemployed (At present she claims that she does not have any place to live. Advised her to go to community action as they may be able to help her out in this regard.) ED ROS GENERAL - Review of Systems Review Of Systems: See Below Constitutional: Denies: Fever, Chills, Diaphoresis HEENT: Reports: No Symptoms Respiratory: Denies: Shortness of Breath, Cough Cardiovascular: Denies: Chest Pain GI/Abdominal: Reports: Abdominal Pain, Constipation, Nausea, Vomiting. Denies: Diarrhea Musculoskeletal: Reports: Back Pain Skin: Reports: No Symptoms Neurological: Reports: No Symptoms ED EXAM, GI/ABD - Physical Exam Exam: See Below General Appearance: Alert, Mild Distress Throat/Mouth: Normal Inspection Neck: Supple Respiratory/Chest: No Respiratory Distress, Lungs Clear, Normal Breath Sounds Cardiovascular: Regular Rate, Rhythm GI/Abdominal Exam: Soft, Tender (upper mid abd, lower abd nontender). No: Guarding, Rebound Back Exam: Vertebral Tenderness (R low back). No: CVA Tenderness (L), CVA Tenderness (R) Neurological: Alert, Oriented, No Motor/Sensory Deficits Skin Exam: Warm, Dry, Normal Color Course - Vital Signs Last Recorded V/S: Last Vital Signs Temp 97.5 F 12/10/20 11:57 Pulse 86 12/10/20 11:57 Resp 20 12/10/20 11:57 BP 116/73 12/10/20 11:57 Pulse Ox 100 12/10/20 11:57 - Orders/Labs/Meds Orders: Active Orders 24 hr Category Date Time Status Peripheral IV Insertion Adult [OM.PC] Stat Oth 12/10/20 12:18 Ordered Labs: Laboratory Tests 12/10/20 12/10/20 12/10/20 Range/Units 12:42 12:42 12:42 WBC 6.83 (3.98-10.04) K/mm3 RBC 4.42 (3.98-5.22) M/mm3 Hgb 13.6 (11.2-15.7) gm/dl Hct 39.6 (34.1-44.9) % MCV 89.6 (79.4-94.8) fl MCH 30.8 (25.6-32.2) pg MCHC 34.3 (32.2-35.5) g/dl RDW Std Deviation 42.5 (36.4-46.3) fL Plt Count 275 (182-369) K/mm3 MPV 8.5 L (9.4-12.3) fl Neut % (Auto) 55.7 (34.0-71.1) % Lymph % (Auto) 33.1 (19.3-51.7) % Nicholas % (Auto) 9.2 (4.7-12.5) % Eos % (Auto) 1.6 (0.7-5.8) Baso % (Auto) 0.4 (0.1-1.2) % Neut # (Auto) 3.80 (1.56-6.13) K/mm3 Lymph # (Auto) 2.26 (1.18-3.74) K/mm3 Nicholas # (Auto) 0.63 H (0.24-0.36) K/mm3 Eos # (Auto) 0.11 (0.04-0.36) K/mm3 Baso # (Auto) 0.03 (0.01-0.08) K/mm3 Sodium 144 (136-145) mEq/L Potassium 3.3 L (3.5-5.1) mEq/L Chloride 107 (98-107) mEq/L Carbon Dioxide 23 (21-32) mEq/L Anion Gap 17.3 H (5-15) BUN 19 H (7-18) mg/dL Creatinine 1.1 H (0.55-1.02) mg/dL Est Cr Clr Drug Dosing 68.10 mL/min Estimated GFR (MDRD) > 60 (>60) mL/min BUN/Creatinine Ratio 17.3 (14-18) Glucose 85 (70-99) mg/dL Calcium 8.3 L (8.5-10.1) mg/dL Total Bilirubin 0.4 (0.2-1.0) mg/dL AST 25 (15-37) U/L ALT 26 (14-59) U/L Alkaline Phosphatase 60 (46-116) U/L Total Protein 6.5 (6.4-8.2) g/dl Albumin 3.9 (3.4-5.0) g/dl Globulin 2.6 gm/dL Albumin/Globulin Ratio 1.5 (1-2) Lipase 95 (73-393) U/L HCG, Qual Negative (NEGATIVE) Urine Color (Yellow) Urine Appearance (Clear) Urine pH (5.0-8.0) Ur Specific Donora (1.005-1.030) Urine Protein (Negative) Urine Glucose (UA) (Negative) Urine Ketones (Negative) Urine Occult Blood (Negative) Urine Nitrite (Negative) Urine Bilirubin (Negative) Urine Urobilinogen (0.2-1.0) Ur Leukocyte Esterase (Negative) U Hyaline Cast (Auto) (0-5) /lpf Urine RBC (0-5) /hpf Urine WBC (0-5) /hpf Ur Squamous Epith Cells (0-5) /hpf Urine Bacteria (FEW) /hpf Urine Mucus (FEW) /hpf // Range/Units 13:46 WBC (3.98-10.04) K/mm3 RBC (3.98-5.22) M/mm3 Hgb (11.2-15.7) gm/dl Hct (34.1-44.9) % MCV (79.4-94.8) fl MCH (25.6-32.2) pg MCHC (32.2-35.5) g/dl RDW Std Deviation (36.4-46.3) fL Plt Count (182-369) K/mm3 MPV (9.4-12.3) fl Neut % (Auto) (34.0-71.1) % Lymph % (Auto) (19.3-51.7) % Nicholas % (Auto) (4.7-12.5) % Eos % (Auto) (0.7-5.8) Baso % (Auto) (0.1-1.2) % Neut # (Auto) (1.56-6.13) K/mm3 Lymph # (Auto) (1.18-3.74) K/mm3 Nicholas # (Auto) (0.24-0.36) K/mm3 Eos # (Auto) (0.04-0.36) K/mm3 Baso # (Auto) (0.01-0.08) K/mm3 Sodium (136-145) mEq/L Potassium (3.5-5.1) mEq/L Chloride (98-107) mEq/L Carbon Dioxide (21-32) mEq/L Anion Gap (5-15) BUN (7-18) mg/dL Creatinine (0.55-1.02) mg/dL Est Cr Clr Drug Dosing mL/min Estimated GFR (MDRD) (>60) mL/min BUN/Creatinine Ratio (14-18) Glucose (70-99) mg/dL Calcium (8.5-10.1) mg/dL Total Bilirubin (0.2-1.0) mg/dL AST (15-37) U/L ALT (14-59) U/L Alkaline Phosphatase (46-116) U/L Total Protein (6.4-8.2) g/dl Albumin (3.4-5.0) g/dl Globulin gm/dL Albumin/Globulin Ratio (1-2) Lipase (73-393) U/L HCG, Qual (NEGATIVE) Urine Color Yellow (Yellow) Urine Appearance Clear (Clear) Urine pH 6.0 (5.0-8.0) Ur Specific Donora > or = 1.030 (1.005-1.030) Urine Protein 1+ H (Negative) Urine Glucose (UA) Negative (Negative) Urine Ketones Trace H (Negative) Urine Occult Blood 1+ H (Negative) Urine Nitrite Negative (Negative) Urine Bilirubin 1+ H (Negative) Urine Urobilinogen 0.2 (0.2-1.0) Ur Leukocyte Esterase Negative (Negative) U Hyaline Cast (Auto) 5-10 H (0-5) /lpf Urine RBC 5-10 H (0-5) /hpf Urine WBC 0-5 (0-5) /hpf Ur Squamous Epith Cells 0-5 (0-5) /hpf Urine Bacteria Few (FEW) /hpf Urine Mucus Many H (FEW) /hpf Meds: Medications Discontinued Medications Generic Name Dose Route Start Last Admin Trade Name Freq PRN Reason Stop Dose Admin Famotidine 20 mg 12/10/20 12:18 12/10/20 12:37 Famotidine 20 Mg/2 Ml Sdv IVPUSH 12/10/20 12:19 20 mg ONETIME ONE Administration Sodium Chloride 1,000 mls @ 999 mls/hr 12/10/20 12:30 12/10/20 12:37 Normal Saline IV 999 mls/hr ONETIME CODY Administration Ondansetron HCl 4 mg 12/10/20 12:18 12/10/20 12:38 Ondansetron 4 Mg/2 Ml Sdv IVPUSH 12/10/20 12:19 4 mg ONETIME ONE Administration Sodium Chloride 10 ml 12/10/20 12:18 12/10/20 12:38 Sodium Chloride 0.9% 10 Ml Syringe FLUSH 10 ml ASDIRECTED PRN Administration Keep Vein Open - Re-Assessments/Exams Free Text/Narrative Re-Assessment/Exam: 12/11/20 07:55 labs were OK, feeling better after IV fluid and zofran. Departure - Departure Time of Disposition: 14:51 Disposition: Home, Self-Care 01 Condition: Fair Clinical Impression: Vomiting, Abdominal pain, Back pain - Discharge Information Prescriptions: Ondansetron [Zofran ODT] 4 mg PO Q8HR PRN #7 tab.dis PRN Reason: Nausea/Vomiting Instructions: Acute Back Pain, Adult, Nausea and Vomiting, Adult, [id number], Abdominal Pain, Adult, [id number] Referrals: Makayla Jarrett NP [Primary Care Provider] - Forms: ED Department Discharge Additional Instructions: Clear liquids until tomorrow, than careful bland diet as tolerated. Zofran if needed for any further vomiting. Follow up with clinic provider if not much better within 2 to 3 days. Return to ED as needed. Sepsis Event Note (ED) - Evaluation Sepsis Screening Result: No Definite Risk - My Orders Last 24 Hours: My Active Orders 12/10/20 12:18 Peripheral IV Insertion Adult [OM.PC] Stat - Assessment/Plan Last 24 Hours: My Active Orders 12/10/20 12:18 Peripheral IV Insertion Adult [OM.PC] Stat
== END 2020-12-10 15:05 | disposition home or self-care (01) ==
LOC: JD.ED 11:34
DX: M54.5 Low back pain (principal); R10.10 Upper abdominal pain, unspecified; R10.30 Lower abdominal pain, unspecified; R11.10 Vomiting, unspecified; J45.909 Unspecified asthma, uncomplicated; Z72.0 Tobacco use; Z88.8 Allergy status to other drugs, medicaments and biological substances; Z79.899 Other long term (current) drug therapy
CPT/HCPCS: 36415; 80053; 81001; 83690; 84703; 85025; 96374; 96375; 99284; J2405; J3490; J7030; 99283

== ENCOUNTER 2021-02-07 12:46 | Emergency (ER) | payer BC, MEDICAID ==
[2021-02-07 13:16] VITALS: BP 104/70; PULSE 110
[2021-02-07] MEDS ORDERED: Sodium Chloride 0.9% 10 ML Syringe FLUSH PRN (13:20)
[2021-02-07] MEDS ORDERED: Sodium Chloride 0.9% 1,000 ML IV STA (13:20)
--- NOTE | 2021-02-07 13:49 | EDM.PDOC ---
ED HPI GENERAL MEDICAL PROBLEM - General Chief Complaint: General Stated Complaint: LOW BLOOD PRESSURE Time Seen by Provider: 02/07/21 13:19 Source of Information: Reports: Patient, RN Notes Reviewed History Limitations: Reports: No Limitations - History of Present Illness INITIAL COMMENTS - FREE TEXT/NARRATIVE: Patient is a 25-year-old female presenting to the emergency department for evaluation of low blood pressure at home. She reports that she was feeling like her "blood pressure had bottomed out ". One of her friends checked her blood pressure at home and it was found to be 70/40. They treated her with fruit and syrup because she says that her blood sugar was also low. Reports her blood sugar was 83. On arrival to ER, blood pressure is normal at 104/70. Patient reports that she took her normal medications this morning and denies any drug use, however she does seem to be under the influence. She is alert and oriented x3. She has been seen in this emergency department a number of occasions for alcohol and drug abuse. She denies any dizziness - Related Data Allergies Allergy/AdvReac Type Severity Reaction Status Date / Time quetiapine [From Seroquel] Allergy Severe Anaphylactic Verified 02/07/21 13:16 Shock Home Meds: Home Meds Amitriptyline [Elavil] 50 mg PO BEDTIME 06/07/19 [History] Venlafaxine [Effexor] 0 mg PO DAILY 06/07/19 [History] clonazePAM [Klonopin] 0.75 mg PO BID 06/07/19 [History] Prazosin HCl [Prazosin] 1 mg PO BEDTIME 08/25/19 [History] Adapalene [Differin 0.1% Crm] 1 applic TOP BEDTIME 08/16/20 [History] Lurasidone [Latuda] 20 mg PO DAILY 08/16/20 [History] Minocycline [Minocin] 100 mg PO DAILY 08/16/20 [History] Propranolol [Inderal] 10 mg PO DAILY 08/16/20 [History] hydrOXYzine HCL [Atarax] 50 mg PO ASDIRECTED 08/16/20 [History] lamoTRIgine [LaMICtal] 150 mg PO DAILY 08/16/20 [History] Ondansetron [Zofran ODT] 4 mg PO Q8HR PRN #7 tab.dis 12/10/20 [Rx] Past Medical History - Past Health History Medical/Surgical History: Denies Medical/Surgical History HEENT History: Reports: Impaired Vision Other HEENT History: 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 ." Cardiovascular History: Reports: None Respiratory History: Reports: Asthma Gastrointestinal History: Reports: None Genitourinary History: Reports: None OCCUPATIONAL THERAPIST AIDE History: Reports: Other OCCUPATIONAL THERAPIST AIDE History: yeast infections Neurological History: Reports: None Psychiatric History: Reports: Addiction, Anxiety, Depression Endocrine/Metabolic History: Reports: Other (See Below) Other Endocrine/Metabolic History: gestational diabetes Hematologic History: Reports: Anemia Immunologic History: Reports: None Oncologic (Cancer) History: Reports: None Dermatologic History: Reports: Eczema - Infectious Disease History Infectious Disease History: Reports: None - Past Surgical History HEENT Surgical History: Reports: Oral Surgery Other Respiratory Surgeries/Procedures: hasn't used inhaler since early in preg micky Musculoskeletal Surgical History: Reports: Other (See Below) Other Musculoskeletal Surgeries/Procedures:: Fluid drained from right knee. Social & Family History - Family History Family Medical History: No Pertinent Family History Cardiac: Reports: [place] Neurological: Reports: CVA - Tobacco Use Tobacco Use Status *Q: Current Every Day Tobacco User Years of Tobacco use: 10 Packs/Tins Daily: 0.5 - Caffeine Use Caffeine Use: Reports: Coffee Caffeine Use Comment: unable to obtain - Recreational Drug Use Recreational Drug Use: No - Living Situation & Occupation Living situation: Reports: Single Occupation: Unemployed (At present she claims that she does not have any place to live. Advised her to go to community action as they may be able to help her out in this regard.) ED ROS GENERAL - Review of Systems Review Of Systems: Comprehensive ROS is negative, except as noted in HPI. ED EXAM, GENERAL - Physical Exam Exam: See Below Exam Limited By: No Limitations General Appearance: Alert, WD/WN, No Apparent Distress Respiratory/Chest: No Respiratory Distress, Lungs Clear, Normal Breath Sounds, No Accessory Muscle Use, Chest Non-Tender Cardiovascular: Normal Peripheral Pulses, Regular Rate, Rhythm, No Edema, No Gallop, No JVD, No Murmur, No Rub GI/Abdominal: Normal Bowel Sounds, Soft, Non-Tender, No Organomegaly, No Distention, No Abnormal Bruit, No Mass Psychiatric: Normal Affect, Normal Mood Course - Vital Signs Last Recorded V/S: Last Vital Signs Temp 98.9 F 02/07/21 13:13 Pulse 110 H 02/07/21 13:13 Resp 16 02/07/21 13:13 BP 104/70 02/07/21 13:13 Pulse Ox 100 02/07/21 13:13 - Orders/Labs/Meds Orders: Active Orders 24 hr Category Date Time Status Peripheral IV Insertion Adult [OM.PC] Stat Oth 02/07/21 13:19 Ordered Meds: Medications Discontinued Medications Generic Name Dose Route Start Last Admin Trade Name Anh PRN Reason Stop Dose Admin Sodium Chloride 1,000 mls @ 999 mls/hr 02/07/21 13:20 Normal Saline IV 02/07/21 14:20 NOW STA Sodium Chloride 10 ml 02/07/21 13:20 Sodium Chloride 0.9% 10 Ml Syringe FLUSH ASDIRECTED PRN Keep Vein Open - Re-Assessments/Exams Free Text/Narrative Re-Assessment/Exam: Patient is a 25-year-old female presenting to the emergency department with concerns of low blood pressure at home. On arrival to ER, blood pressure is normal. Patient does appear to be under the influence of drugs, however denies any drug use. Recommended work-up including blood work, urinalysis, drug screen, and IV fluids, however patient refused this. States he would rather monitor her blood pressure at home. Discussed the risks of this and she would like to sign out AMA. AMA form has been completed. Departure - Departure Time of Disposition: 13:48 Disposition: Against Medical Advice 07 Condition: Good Clinical Impression: Left against medical advice - Discharge Information Referrals: PCP,None [Primary Care Provider] - Forms: ED Department Discharge Additional Instructions: You were seen in the emergency department today for low blood pressure at home. On arrival to ER, your blood pressure was normal. Work-up was recommended including fluids and blood work, however you refused this. Risks of this were discussed with you. Recommend return to ER should you experience any new or worsening symptoms. Sepsis Event Note (ED) - Evaluation Sepsis Screening Result: No Definite Risk - My Orders Last 24 Hours: My Active Orders 02/07/21 13:19 Peripheral IV Insertion Adult [OM.PC] Stat - Assessment/Plan Last 24 Hours: My Active Orders 02/07/21 13:19 Peripheral IV Insertion Adult [OM.PC] Stat
== END 2021-02-07 13:50 | disposition left against medical advice (07) ==
LOC: JD.ED 12:46
DX: I95.9 Hypotension, unspecified (principal); Z53.8 Procedure and treatment not carried out for other reasons; Z88.8 Allergy status to other drugs, medicaments and biological substances; Z72.0 Tobacco use
CPT/HCPCS: 99282; 99284

== ENCOUNTER 2021-05-01 14:48 | Emergency (ER) | payer BC, MEDICAID ==
[2021-05-01 15:10] VITALS: BP 115/60; PULSE 67
--- NOTE | 2021-05-01 15:13 | EDM.PDOC ---
ED HPI GENERAL MEDICAL PROBLEM - General Chief Complaint: Chest Pain Stated Complaint: CHEST PAIN Time Seen by Provider: 05/01/21 15:13 - History of Present Illness INITIAL COMMENTS - FREE TEXT/NARRATIVE: 25-year-old female presents emergency room with chest pain. She states his pain has been there for 4 days perhaps little bit longer seems to be substernal in nature it is not necessarily worsened with deep breathing just fairly constant patient had a similar episode where she had a blood clot that they think radiated from her left arm into her heart this was little over a year ago. She also states she has a blood condition where her blood does not carry nutrients the way it supposed to the patient denies any recent drugs or alcohol. Katie she has been evaluated for her or is in the process of being evaluated for either Parkinson's or MS-like situation. The patient does not believe she is she just recently had the Depo-Provera. Left Upper Chest Pain Score (Numeric/FACES): 8 - Related Data Allergies Allergy/AdvReac Type Severity Reaction Status Date / Time quetiapine [From Seroquel] Allergy Severe Anaphylactic Verified 05/01/21 15:06 Shock Home Meds: Home Meds Amitriptyline [Elavil] 50 mg PO BEDTIME 06/07/19 [History] Venlafaxine [Effexor] 0 mg PO DAILY 06/07/19 [History] clonazePAM [Klonopin] 0.75 mg PO BID 06/07/19 [History] Prazosin HCl [Prazosin] 1 mg PO BEDTIME 08/25/19 [History] Adapalene [Differin 0.1% Crm] 1 applic TOP BEDTIME 08/16/20 [History] Lurasidone [Latuda] 20 mg PO DAILY 08/16/20 [History] Minocycline [Minocin] 100 mg PO DAILY 08/16/20 [History] Propranolol [Inderal] 10 mg PO DAILY 08/16/20 [History] hydrOXYzine HCL [Atarax] 50 mg PO ASDIRECTED 08/16/20 [History] lamoTRIgine [LaMICtal] 150 mg PO DAILY 08/16/20 [History] Ondansetron [Zofran ODT] 4 mg PO Q8HR PRN #7 tab.dis 12/10/20 [Rx] Past Medical History - Past Health History Medical/Surgical History: Denies Medical/Surgical History HEENT History: Reports: Impaired Vision Other HEENT History: 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 ." Cardiovascular History: Reports: None Respiratory History: Reports: Asthma Gastrointestinal History: Reports: None Genitourinary History: Reports: None PUBLIC RELATIONS PLAYER History: Reports: Other PUBLIC RELATIONS PLAYER History: yeast infections Neurological History: Reports: None Psychiatric History: Reports: Addiction, Anxiety, Depression Endocrine/Metabolic History: Reports: Other (See Below) Other Endocrine/Metabolic History: gestational diabetes Hematologic History: Reports: Anemia Immunologic History: Reports: None Oncologic (Cancer) History: Reports: None Dermatologic History: Reports: Eczema - Infectious Disease History Infectious Disease History: Reports: None - Past Surgical History HEENT Surgical History: Reports: Oral Surgery Other Respiratory Surgeries/Procedures: hasn't used inhaler since early in Musculoskeletal Surgical History: Reports: Other (See Below) Other Musculoskeletal Surgeries/Procedures:: Fluid drained from right knee. Social & Family History - Family History Family Medical History: No Pertinent Family History Cardiac: Reports: MA Neurological: Reports: CVA - Caffeine Use Caffeine Use: Reports: Coffee Caffeine Use Comment: unable to obtain - Living Situation & Occupation Living situation: Reports: Single Occupation: Unemployed (At present she claims that she does not have any place to live. Advised her to go to [facility] as they may be able to help her o ut in this regard.) ED ROS GENERAL - Review of Systems Review Of Systems: See Below Constitutional: Reports: Malaise, Weakness HEENT: Reports: No Symptoms Respiratory: Reports: Pleuritic Chest Pain Cardiovascular: Reports: Chest Pain Endocrine: Reports: No Symptoms GI/Abdominal: Reports: No Symptoms : Reports: No Symptoms Musculoskeletal: Reports: No Symptoms ED EXAM, GENERAL - Physical Exam Exam: See Below Exam Limited By: Other General Appearance: No Apparent Distress Head: Atraumatic, Normocephalic Neck: Normal Inspection, Supple, Non-Tender, Full Range of Motion Respiratory/Chest: No Respiratory Distress, Lungs Clear, Normal Breath Sounds Cardiovascular: Regular Rate, Rhythm, No Edema, No Murmur GI/Abdominal: Normal Bowel Sounds, Soft, Non-Tender Back Exam: Normal Inspection. No: CVA Tenderness (L), CVA Tenderness (R) Neurological: Alert. 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 These look consistent with healing cigarette eduardo) #1 Interpretation EKG Date: 05/01/21 Rhythm: Other (Sinus irregularity normal variant for age) Pepin: Normal P-Wave: Present QRS: Normal ST-T: Normal QT: Normal Comparison: Change From Previous EKG (EKG done on August 25, 2019 showed poor R wave progression this seems to have improved the sinus irregularity noted today was not seen on that tracing) EKG Interpretation Comments: Normal EKG Course - Vital Signs Last Recorded V/S: Last Vital Signs Temp 37.1 C 05/01/21 15:00 Pulse 67 05/01/21 15:00 Resp 24 H 05/01/21 15:00 BP 115/60 05/01/21 15:00 Pulse Ox 100 05/01/21 15:00 - Orders/Labs/Meds Labs: Laboratory Tests 05/01/21 05/01/21 05/01/21 Range/Units 15:33 15:58 15:58 WBC 5.67 (3.98-10.04) K/mm3 RBC 4.46 (3.98-5.22) M/mm3 Hgb 13.5 (11.2-15.7) gm/dl Hct 39.7 (34.1-44.9) % MCV 89.0 (79.4-94.8) fl MCH 30.3 (25.6-32.2) pg MCHC 34.0 (32.2-35.5) g/dl RDW Std Deviation 41.3 (36.4-46.3) fL Plt Count 237 (182-369) K/mm3 MPV 9.1 L (9.4-12.3) fl Neut % (Auto) 49.6 (34.0-71.1) % Lymph % (Auto) 40.0 (19.3-51.7) % [place] % (Auto) 8.3 (4.7-12.5) % Eos % (Auto) 1.6 (0.7-5.8) Baso % (Auto) 0.5 (0.1-1.2) % Neut # (Auto) 2.81 (1.56-6.13) K/mm3 Lymph # (Auto) 2.27 (1.18-3.74) K/mm3 [place] # (Auto) 0.47 H (0.24-0.36) K/mm3 Eos # (Auto) 0.09 (0.04-0.36) K/mm3 Baso # (Auto) 0.03 (0.01-0.08) K/mm3 PT 11.9 (9.7-12.0) SECONDS INR 1.08 APTT 24.2 (21.7-31.4) SECONDS D-Dimer, Quantitative 0.43 (0.19-0.50) mg/L Sodium 140 (136-145) mEq/L Potassium 3.6 (3.5-5.1) mEq/L Chloride 105 (98-107) mEq/L Carbon Dioxide 25 (21-32) mEq/L Anion Gap 13.6 (5-15) BUN 13 (7-18) mg/dL Creatinine 0.9 (0.55-1.02) mg/dL Est Cr Clr Drug Dosing 79.73 mL/min Estimated GFR (MDRD) > 60 (>60) mL/min BUN/Creatinine Ratio 14.4 (14-18) Glucose 98 (70-99) mg/dL Calcium 9.0 (8.5-10.1) mg/dL Total Bilirubin 0.4 (0.2-1.0) mg/dL AST 13 L (15-37) U/L ALT 21 (14-59) U/L Alkaline Phosphatase 39 L (46-116) U/L Troponin I < 0.017 (0.00-0.056) ng/mL Total Protein 6.8 (6.4-8.2) g/dl Albumin 4.0 (3.4-5.0) g/dl Globulin 2.8 gm/dL Albumin/Globulin Ratio 1.4 (1-2) HCG, Qual (NEGATIVE) Urine Opiates Screen (DJARZD=537) Ur Buprenorphine Scrn (CUTOFF=10) Ur Oxycodone Screen (AZB9MG=818) Urine Methadone Screen (IPSGEZ=680) Ur Propoxyphene Screen (EAVLHN=664) Ur Barbiturates Screen (NBAAGQ=110) Ur Tricyclics Screen (JFWLDY=207) Ur Phencyclidine Scrn (CUTOFF=25) Ur Amphetamine Screen (UVVKTH=184) U Methamphetamines Scrn (OMLBLZ=026) U Benzodiazepines Scrn (HTIJSF=769) U Cocaine Metab Screen (FEKZBT=174) U Marijuana (THC) Screen (CUTOFF=50) Ethyl Alcohol 0.00 (0.00) gm% 05/01/21 05/01/21 Range/Units 15:58 16:20 WBC (3.98-10.04) K/mm3 RBC (3.98-5.22) M/mm3 Hgb (11.2-15.7) gm/dl Hct (34.1-44.9) % MCV (79.4-94.8) fl MCH (25.6-32.2) pg MCHC (32.2-35.5) g/dl RDW Std Deviation (36.4-46.3) fL Plt Count (182-369) K/mm3 MPV (9.4-12.3) fl Neut % (Auto) (34.0-71.1) % Lymph % (Auto) (19.3-51.7) % [place] % (Auto) (4.7-12.5) % Eos % (Auto) (0.7-5.8) Baso % (Auto) (0.1-1.2) % Neut # (Auto) (1.56-6.13) K/mm3 Lymph # (Auto) (1.18-3.74) K/mm3 [place] # (Auto) (0.24-0.36) K/mm3 Eos # (Auto) (0.04-0.36) K/mm3 Baso # (Auto) (0.01-0.08) K/mm3 PT (9.7-12.0) SECONDS INR APTT (21.7-31.4) SECONDS D-Dimer, Quantitative (0.19-0.50) mg/L Sodium (136-145) mEq/L Potassium (3.5-5.1) mEq/L Chloride (98-107) mEq/L Carbon Dioxide (21-32) mEq/L Anion Gap (5-15) BUN (7-18) mg/dL Creatinine (0.55-1.02) mg/dL Est Cr Clr Drug Dosing mL/min Estimated GFR (MDRD) (>60) mL/min BUN/Creatinine Ratio (14-18) Glucose (70-99) mg/dL Calcium (8.5-10.1) mg/dL Total Bilirubin (0.2-1.0) mg/dL AST (15-37) U/L ALT (14-59) U/L Alkaline Phosphatase (46-116) U/L Troponin I (0.00-0.056) ng/mL Total Protein (6.4-8.2) g/dl Albumin (3.4-5.0) g/dl Globulin gm/dL Albumin/Globulin Ratio (1-2) HCG, Qual Negative (NEGATIVE) Urine Opiates Screen Negative (ASEPQS=753) Ur Buprenorphine Scrn Negative (CUTOFF=10) Ur Oxycodone Screen Negative (NLP5BL=567) Urine Methadone Screen Negative (BCUWYE=472) Ur Propoxyphene Screen Negative (DLGWMP=975) Ur Barbiturates Screen Negative (AYHPJV=675) Ur Tricyclics Screen Presumptive positive H (RNCMJO=408) Ur Phencyclidine Scrn Negative (CUTOFF=25) Ur Amphetamine Screen Presumptive positive H (FRYIPT=781) U Methamphetamines Scrn Presumptive positive H (XWIPHP=292) U Benzodiazepines Scrn Presumptive positive H (DCTRDM=218) U Cocaine Metab Screen Negative (DNAOQL=218) U Marijuana (THC) Screen Negative (CUTOFF=50) Ethyl Alcohol (0.00) gm% - Re-Assessments/Exams Free Text/Narrative Re-Assessment/Exam: 05/01/21 18:11 In the process of being evaluated and before I reviewed her labs the patient decided to leave. She refused to sign the AMA forms. Chest x-ray was unre markable EKG normal. Departure - Departure Time of Disposition: 17:40 Disposition: Against Medical Advice 07 Clinical Impression: Drug use - Discharge Information Referrals: Chanelle Duncan NP [Primary Care Provider] - Forms: ED Department Discharge Sepsis Event Note (ED) - Evaluation Sepsis Screening Result: No Definite Risk - Focused Exam Vital Signs: Vital Signs Temp Pulse Resp BP Pulse Ox 05/01/21 15:00 37.1 C 67 24 H 115/60 100
--- NOTE | 2021-05-01 17:23 | CR ---
Chest: Portable view of the chest was obtained. Comparison: Prior chest x-ray of 03/11/16. Heart size and mediastinum are normal. Lungs are clear with no acute parenchymal change. Bony structures show nothing acute. Impression: 1. Nothing acute is seen on portable chest x-ray. Diagnostic code #1
== END 2021-05-01 17:40 | disposition left against medical advice (07) ==
LOC: JD.ED 14:48
DX: F15.90 Other stimulant use, unspecified, uncomplicated (principal); F13.90 Sedative, hypnotic, or anxiolytic use, unspecified, uncomplicated; J45.909 Unspecified asthma, uncomplicated; Z79.899 Other long term (current) drug therapy; Z88.8 Allergy status to other drugs, medicaments and biological substances
CPT/HCPCS: 36415; 71045; 71045-26; 80053; 80306; 80307; 84484; 84703; 85025; 85379; 85610; 85730; 99283; 99285-25

== ENCOUNTER 2021-12-23 10:49 | Emergency (ER) | payer BC, MEDICAID ==
[2021-12-23 11:26] VITALS: BP 105/85; PULSE 110
[2021-12-23] MEDS ORDERED: Famotidine 20 MG/2 ML SDV IVPUSH ONE (11:26)
[2021-12-23] MEDS ORDERED: diphenhydrAMINE 50 MG/ML SDV IVPUSH ONE (11:26)
[2021-12-23] MEDS ORDERED: Sodium Chloride 0.9% 1,000 ML IV ONE (11:26)
[2021-12-23] MEDS ORDERED: Sodium Chloride 0.9% 10 ML Syringe FLUSH PRN (11:26)
[2021-12-23] MEDS ORDERED: methylPREDNISolone Sodium Succinate 125 MG/2 ML SDV IVPUSH ONE (11:26)
[2021-12-23] MEDS ORDERED: Orphenadrine 100 MG Tab.ER PO ONE (11:29)
[2021-12-23] MEDS ORDERED: predniSONE 20 MG Tab PO ONE (12:07)
[2021-12-23] MEDS ORDERED: diphenhydrAMINE 50 MG/ML SDV IM ONE (12:07)
[2021-12-23 12:57] LABS: ESTIMATED GFR 105 mL/min (>60)
== END 2021-12-23 13:26 | disposition home or self-care (01) ==
LOC: JD.ED 10:49
DX: S10.96XA Insect bite of unspecified part of neck, initial encounter (principal); M54.42 Lumbago with sciatica, left side; R93.7 Abnormal findings on diagnostic imaging of other parts of musculoskeletal system; Z88.8 Allergy status to other drugs, medicaments and biological substances; W57.XXXA Bitten or stung by nonvenomous insect and other nonvenomous arthropods, initial encounter
CPT/HCPCS: 36415; 71045; 72100; 80053; 85025; 86140; 96372; 99283; A9270; J1200; J7512; 99284

== ENCOUNTER 2022-05-08 19:21 | Emergency (ER) | payer BC, MEDICAID ==
[2022-05-08] MEDS ORDERED: Sodium Chloride 0.9% 1,000 ML IV SCH (19:30)
[2022-05-08] MEDS ORDERED: Sodium Chloride 0.9% 1,000 ML IV ONE (19:33)
[2022-05-08 20:06] LABS: ESTIMATED GFR 123 mL/min (>60)
[2022-05-08 20:09] LABS: ACETAMINOPHEN 0 ug/mL (10-30)
[2022-05-09 06:01] VITALS: BP 114/87; PULSE 98
== END 2022-05-09 05:58 | disposition home or self-care (01) ==
LOC: JD.ED 19:21
DX: U07.1 COVID-19 (principal); F15.10 Other stimulant abuse, uncomplicated; J45.909 Unspecified asthma, uncomplicated; R00.0 Tachycardia, unspecified; Z88.8 Allergy status to other drugs, medicaments and biological substances; Z79.899 Other long term (current) drug therapy
CPT/HCPCS: 36415; 70450; 80053; 80143; 80179; 80306; 80307; 81001; 81025; 82550; 83605; 83735; 84100; 84484; 85007; 85027; 85610; 85730; 87635; 93005; 96360; 96361; 99285; J7030; U0002

== ENCOUNTER 2022-06-02 22:07 | Emergency (ER) | payer BC, MEDICAID ==
[2022-06-03 01:40] VITALS: BP 129/87; PULSE 96
== END 2022-06-03 03:37 | disposition home or self-care (01) ==
LOC: JD.ED 22:07
DX: N93.9 Abnormal uterine and vaginal bleeding, unspecified (principal); J45.909 Unspecified asthma, uncomplicated; Z88.8 Allergy status to other drugs, medicaments and biological substances; Z79.899 Other long term (current) drug therapy
CPT/HCPCS: 36415; 84703; 85025; 99284

== ENCOUNTER 2022-07-16 19:14 | Emergency (ER) | payer BC, MEDICAID ==
[2022-07-16 20:02] VITALS: BP 107/52; PULSE 132
[2022-07-16] MEDS ORDERED: Sodium Chloride 0.9% 10 ML Syringe FLUSH PRN (21:32)
== END 2022-07-16 23:17 | disposition home or self-care (01) ==
LOC: JD.ED 19:14
DX: N93.9 Abnormal uterine and vaginal bleeding, unspecified (principal); J45.909 Unspecified asthma, uncomplicated; O24.419 Gestational diabetes mellitus in pregnancy, unspecified control; Z88.8 Allergy status to other drugs, medicaments and biological substances; Z72.0 Tobacco use
CPT/HCPCS: 36415; 81001; 84703; 85025; 86900; 86901; 99284; A9270

== ENCOUNTER 2022-10-11 02:46 | Emergency (ER) | payer MEDICAID ==
[2022-10-11] MEDS ORDERED: Ketorolac 30 MG/ML SDV IVPUSH ONE (02:58)
[2022-10-11] MEDS ORDERED: Sodium Chloride 0.9% 1,000 ML IV ONE (02:58)
[2022-10-11 02:59] VITALS: BP 134/74; PULSE 93
[2022-10-11 03:20] LABS: BASOPHILS ABSOLUTE AUTO 0.02 K/mm3 (0.01-0.08); BASOPHILS PERCENT AUTO 0.2 % (0.1-1.2); EOSINOPHILS ABSOLUTE AUTO 0.19 K/mm3 (0.04-0.36); EOSINOPHILS PERCENT AUTO 2.2 (0.7-5.8); HEMATOCRIT 44.7 % (34.1-44.9); HEMOGLOBIN 15.1 gm/dl (11.2-15.7); IMMATURE GRAN ABSOLUTE AUTO 0.02 K/mm3 (0.00-0.10); IMMATURE GRAN PERCENT AUTO 0.2 % (<=1.0); LYMPHOCYTES ABSOLUTE AUTO 3.33 K/mm3 (1.18-3.74); LYMPHOCYTES PERCENT AUTO 38.3 % (19.3-51.7); MEAN CORPUSCULAR HEMOGLOBIN 30.9 pg (25.6-32.2); MEAN CORPUSCULAR HGB CONC 33.8 g/dl (32.2-35.5); MEAN CORPUSCULAR VOLUME 91.4 fl (79.4-94.8); MEAN PLATELET VOLUME 8.7 fl (9.4-12.3); MONOCYTES ABSOLUTE AUTO 0.95 K/mm3 (0.24-0.36); MONOCYTES PERCENT AUTO 10.9 % (4.7-12.5); NEUTROPHILS ABSOLUTE AUTO 4.19 K/mm3 (1.56-6.13); NEUTROPHILS PERCENT AUTO 48.2 % (34.0-71.1); PLATELET COUNT,PLT 276 K/mm3 (182-369); RED BLOOD CELL COUNT 4.89 M/mm3 (3.98-5.22)
[2022-10-11 03:29] LABS: APPEARANCE,URINE CLEAR (Clear); BILIRUBIN,URINE 1+ (Negative); COLOR,URINE DARK YELLOW (Yellow); GLUCOSE,URINE NEGATIVE (Negative); KETONES,URINE NEGATIVE (Negative); LEUKOCYTE ESTERASE,URINE TRACE (Negative); NITRITE,URINE POSITIVE (Negative); OCCULT BLOOD,URINE NEGATIVE (Negative); PH,URINE 5.5 (5.0-8.0); PROTEIN,URINE 1+ (Negative); UROBILINOGEN,URINE 0.2 (0.2-1.0)
[2022-10-11 03:36] LABS: BACTERIA,URINE MODERATE /hpf (FEW); MUCUS,URINE MANY /hpf (FEW); RBC,URINE 0-5 /hpf (0-5); SQUAMOUS EPITHELIAL CELLS,UR 30-40 /hpf (0-5)
[2022-10-11 03:41] LABS: A/G RATIO 1.1 (1-2); ALBUMIN 3.6 g/dl (3.4-5.0); ANION GAP 13.8 (5-15); BILIRUBIN TOTAL 0.5 mg/dL (0.2-1.0); BUN/CREATININE RATIO 22.5 (14-18); CALCIUM 8.5 mg/dL (8.5-10.1); CREATININE 0.8 mg/dL (0.55-1.02); EST CRCL DRUG DOSING (CG) 87.75 mL/min; POTASSIUM,K 3.8 mEq/L (3.5-5.1)
[2022-10-11] MEDS ORDERED: Cephalexin 500 MG Cap PO ONE (03:45)
[2022-10-11] MEDS ORDERED: Iopamidol 612 MG/ML 100 ML Bottle IVPUSH ONE (03:45)
== END 2022-10-11 04:35 | disposition other institution (70) ==
LOC: JD.ED 02:46
DX: N39.0 Urinary tract infection, site not specified (principal); J45.909 Unspecified asthma, uncomplicated; Z88.8 Allergy status to other drugs, medicaments and biological substances
CPT/HCPCS: 36415; 74177; 80053; 81001; 81025; 82150; 85025; 96361; 96374; 99285; A9270; J1885; J7030; Q9967; 99284

== ENCOUNTER 2022-10-16 16:44 | Emergency (ER) | payer MEDICAID ==
[2022-10-16 17:41] VITALS: BP 91/66; PULSE 85
[2022-10-16] MEDS ORDERED: Ibuprofen 600 MG Tab PO ONE (18:38)
[2022-10-16] MEDS ORDERED: Acetaminophen 325 MG Tab PO ONE (18:38)
[2022-10-16 18:54] LABS: HCG QUANTITATIVE < 1.0 mIU/mL
== END 2022-10-16 18:47 ==
LOC: JD.ED 16:44
DX: S40.011A Contusion of right shoulder, initial encounter (principal); J45.909 Unspecified asthma, uncomplicated; Z88.8 Allergy status to other drugs, medicaments and biological substances; Z72.0 Tobacco use; Y04.2XXA Assault by strike against or bumped into by another person, initial encounter; Y92.009 Unspecified place in unspecified non-institutional (private) residence as the place of occurrence of the external cause
CPT/HCPCS: 36415; 80307; 84702; 99283

== ENCOUNTER 2022-11-26 20:49 | Emergency (ER) | payer MEDICAID | END 2022-11-26 20:54 | disposition left against medical advice (07) | LOC: JD.ED 20:49 | DX: Z53.21 Procedure and treatment not carried out due to patient leaving prior to being seen by health care provider (principal) ==

== ENCOUNTER 2022-12-30 06:52 | Emergency (ER) | payer MEDICAID ==
[2022-12-30] MEDS ORDERED: Sodium Chloride 0.9% 10 ML Syringe FLUSH PRN ×2 (07:27→09:29)
[2022-12-30] MEDS ORDERED: Sodium Chloride 0.9% 1,000 ML IV STA (07:27)
[2022-12-30] MEDS ORDERED: Ondansetron 4 MG/2 ML SDV IVPUSH ONE (07:27)
[2022-12-30] MEDS ORDERED: HYDROmorphone 0.5 MG/0.5 ML Syringe IVPUSH ONE (07:30)
[2022-12-30 08:30] LABS: APPEARANCE,URINE CLOUDY (Clear); BILIRUBIN,URINE NEGATIVE (Negative); COLOR,URINE YELLOW (Yellow); GLUCOSE,URINE NEGATIVE (Negative); KETONES,URINE NEGATIVE (Negative); LEUKOCYTE ESTERASE,URINE TRACE (Negative); NITRITE,URINE NEGATIVE (Negative); OCCULT BLOOD,URINE NEGATIVE (Negative); PROTEIN,URINE 1+ (Negative); UROBILINOGEN,URINE 0.2 (0.2-1.0)
[2022-12-30 08:37] LABS: A/G RATIO 1.1 (1-2); ALANINE AMINOTRANSFERASE,ALT 14 U/L (14-59); ALBUMIN 3.5 g/dl (3.4-5.0); ALKALINE PHOSPHATASE 57 U/L (46-116); ANION GAP 10.8 (5-15); ASPARTATE AMNIOTRANSFERASE,AST 12 U/L (15-37); BILIRUBIN TOTAL 0.2 mg/dL (0.2-1.0); BLOOD UREA NITROGEN,BUN 16 mg/dL (7-18); BUN/CREATININE RATIO 26.7 (14-18); CALCIUM 8.5 mg/dL (8.5-10.1); CARBON DIOXIDE,CO2 26 mEq/L (21-32); CHLORIDE,CL 103 mEq/L (98-107); CREATININE 0.6 mg/dL (0.55-1.02); EST CRCL DRUG DOSING (CG) 122.69 mL/min; ESTIMATED GFR 127 mL/min (>60); GLUCOSE RANDOM 98 mg/dL (70-99); LIPASE 369 U/L (73-393); POTASSIUM,K 3.8 mEq/L (3.5-5.1); PROTEIN TOTAL,TP 6.6 g/dl (6.4-8.2); SODIUM,NA 136 mEq/L (136-145)
[2022-12-30 08:55] LABS: TROPONIN I HIGH SENSITIVITY < 4 pg/mL (<=51)
[2022-12-30 09:17] LABS: AMORPHOUS SEDIMENT,URINE MANY /hpf (NOT SEEN); BACTERIA,URINE MODERATE /hpf (FEW); MUCUS,URINE FEW /hpf (FEW); RBC,URINE 0-5 /hpf (0-5); WBC,URINE 0-5 /hpf (0-5)
[2022-12-30] MEDS ORDERED: Iopamidol 612 MG/ML 100 ML Bottle IVPUSH ONE (09:29)
[2022-12-30 11:19] LABS: BASOPHILS ABSOLUTE AUTO 0.03 K/mm3 (0.01-0.08); BASOPHILS PERCENT AUTO 0.4 % (0.1-1.2); EOSINOPHILS ABSOLUTE AUTO 0.21 K/mm3 (0.04-0.36); EOSINOPHILS PERCENT AUTO 2.5 (0.7-5.8); HEMATOCRIT 40.6 % (34.1-44.9); HEMOGLOBIN 13.3 gm/dl (11.2-15.7); IMMATURE GRAN ABSOLUTE AUTO 0.02 K/mm3 (0.00-0.10); IMMATURE GRAN PERCENT AUTO 0.2 % (<=1.0); LYMPHOCYTES ABSOLUTE AUTO 2.13 K/mm3 (1.18-3.74); LYMPHOCYTES PERCENT AUTO 25.7 % (19.3-51.7); MEAN CORPUSCULAR HGB CONC 32.8 g/dl (32.2-35.5); MEAN CORPUSCULAR VOLUME 94.6 fl (79.4-94.8); MEAN PLATELET VOLUME 9.8 fl (9.4-12.3); MONOCYTES ABSOLUTE AUTO 0.77 K/mm3 (0.24-0.36); MONOCYTES PERCENT AUTO 9.3 % (4.7-12.5); NEUTROPHILS ABSOLUTE AUTO 5.13 K/mm3 (1.56-6.13); NEUTROPHILS PERCENT AUTO 61.9 % (34.0-71.1); PLATELET COUNT,PLT 274 K/mm3 (182-369); RED BLOOD CELL COUNT 4.29 M/mm3 (3.98-5.22); WHITE BLOOD CELL COUNT,WBC 8.29 K/mm3 (3.98-10.04)
[2022-12-30 11:40] VITALS: BP 116/88; PULSE 72
== END 2022-12-30 11:45 | disposition home or self-care (01) ==
LOC: JD.ED 06:52
DX: K59.01 Slow transit constipation (principal); R07.89 Other chest pain; I10 Essential (primary) hypertension; J45.909 Unspecified asthma, uncomplicated; Z86.16 Personal history of COVID-19; Z88.8 Allergy status to other drugs, medicaments and biological substances; Z79.899 Other long term (current) drug therapy
CPT/HCPCS: 36415; 71045; 74177; 80053; 81001; 83690; 84484; 84703; 85025; 93005; 96361; 96374; 96375; 99285; J1170; J2405; J3490; J7030; Q9967; 93010; 99284

== ENCOUNTER 2023-01-01 21:18 | Emergency (ER) | payer MEDICAID ==
[2023-01-01 22:54] VITALS: BP 105/74; PULSE 112
== END 2023-01-01 23:19 | disposition left against medical advice (07) ==
LOC: JD.ED 21:18
DX: O99.341 Other mental disorders complicating pregnancy, first trimester (principal); Z3A.01 Less than 8 weeks gestation of pregnancy; F17.210 Nicotine dependence, cigarettes, uncomplicated; I10 Essential (primary) hypertension; E11.9 Type 2 diabetes mellitus without complications; Z88.8 Allergy status to other drugs, medicaments and biological substances; Z86.16 Personal history of COVID-19
CPT/HCPCS: 99281; 99283

== ENCOUNTER 2023-01-13 19:01 | Emergency (ER) | payer MEDICAID ==
[2023-01-13 19:13] VITALS: BP 122/75; PULSE 94
== END 2023-01-13 19:35 | disposition left against medical advice (07) ==
LOC: JD.ED 19:01
DX: F22 Delusional disorders (principal); J45.909 Unspecified asthma, uncomplicated; I10 Essential (primary) hypertension; Z88.8 Allergy status to other drugs, medicaments and biological substances
CPT/HCPCS: 99283; 99284

== ENCOUNTER 2023-02-15 19:13 | Emergency (ER) | payer MEDICAID ==
[2023-02-15] MEDS ORDERED: ClonazePAM 1 MG Tab PO ONE (20:12)
[2023-02-15 20:32] LABS: BASOPHILS PERCENT AUTO 0.5 % (0.0-1.0); EOSINOPHILS ABSOLUTE AUTO 0.1 K/mm3 (0.0-0.4); EOSINOPHILS PERCENT AUTO 1.3 % (0.0-6.0); HEMOGLOBIN 13.9 gm/dl (12.0-16.0); IMMATURE GRAN ABSOLUTE AUTO 0.01 K/mm3 (0.00-0.05); IMMATURE GRAN PERCENT AUTO 0.1 % (0.0-0.4); LYMPHOCYTES ABSOLUTE AUTO 2.1 K/mm3 (1.0-4.8); MEAN CORPUSCULAR HEMOGLOBIN 31.6 pg (28.0-32.0); MEAN CORPUSCULAR HGB CONC 33.9 g/dl (32.0-36.0); MEAN CORPUSCULAR VOLUME 93.2 fl (83.0-99.0); MEAN PLATELET VOLUME 8.5 fl (9.4-12.3); MONOCYTES ABSOLUTE AUTO 0.5 K/mm3 (0.0-0.8); MONOCYTES PERCENT AUTO 7.3 % (0.0-8.0); NEUTROPHILS ABSOLUTE AUTO 4.7 K/mm3 (1.8-7.7); NEUTROPHILS PERCENT AUTO 62.8 % (41.0-71.0); PLATELET COUNT,PLT 215 K/mm3 (150-400); WHITE BLOOD CELL COUNT,WBC 7.43 K/mm3 (3.9-11.3)
[2023-02-15 20:48] LABS: BARBITURATE SCREEN,URINE NEGATIVE (CUTOFF=200); BENZODIAZEPINES SCREEN,URINE NEGATIVE (CUTOFF=150); BUPRENORPHINE SCREEN,URINE NEGATIVE (CUTOFF=10); METHADONE SCREEN, URINE NEGATIVE (CUTOFF=200); METHAMPHETAMINES SCREEN, URINE PRESUMPTIVE POSITIVE (CUTOFF=500); OXYCODONE SCREEN,URINE NEGATIVE (CUT0FF=100); PROPOXYPHENE SCREEN,URINE NEGATIVE (CUTOFF=300); THC SCREEN,URINE 20 NG/ML NEGATIVE (CUTOFF=50)
[2023-02-15 20:49] LABS: AMPHETAMINES SCREEN, URINE PRESUMPTIVE POSITIVE (CUTOFF=500)
[2023-02-15 21:04] LABS: A/G RATIO 1.2 (1-2); ALANINE AMINOTRANSFERASE,ALT 16 U/L (14-59); ALKALINE PHOSPHATASE 58 U/L (46-116); ANION GAP 13.5 (5-15); ASPARTATE AMNIOTRANSFERASE,AST 17 U/L (15-37); BILIRUBIN TOTAL 0.2 mg/dL (0.2-1.0); BLOOD UREA NITROGEN,BUN 15 mg/dL (7-18); BUN/CREATININE RATIO 16.7 (14-18); CALCIUM 9.1 mg/dL (8.5-10.1); CARBON DIOXIDE,CO2 28 mEq/L (21-32); CHLORIDE,CL 101 mEq/L (98-107); CREATININE 0.9 mg/dL (0.55-1.02); ESTIMATED GFR 90 mL/min (>60); GLUCOSE RANDOM 106 mg/dL (70-99); POTASSIUM,K 3.5 mEq/L (3.5-5.1); PROTEIN TOTAL,TP 7.4 g/dl (6.4-8.2); SODIUM,NA 139 mEq/L (136-145); TSH 1.128 uIU/mL (0.358-3.74)
[2023-02-15 21:05] LABS: ACETAMINOPHEN 0 ug/mL (10-30); TROPONIN I HIGH SENSITIVITY < 4 pg/mL (<=51)
[2023-02-15 23:30] VITALS: BP 103/65; PULSE 97
== END 2023-02-15 22:10 ==
LOC: JD.ED 19:13
DX: R07.89 Other chest pain (principal); F32.89 Other specified depressive episodes; F25.8 Other schizoaffective disorders; I10 Essential (primary) hypertension; J45.909 Unspecified asthma, uncomplicated; Z88.8 Allergy status to other drugs, medicaments and biological substances; Z86.16 Personal history of COVID-19
CPT/HCPCS: 36415; 80053; 80143; 80179; 80306; 80307; 84443; 84484; 84703; 85025; 93005; 99285; A9270; 93010; 99283

== ENCOUNTER 2023-02-28 16:03 | Emergency (ER) | payer MEDICAID ==
[2023-02-28 16:32] VITALS: BP 121/72; PULSE 84
[2023-02-28 17:40] LABS: APPEARANCE,URINE SLT CLOUDY (Clear); BILIRUBIN,URINE NEGATIVE (Negative); COLOR,URINE YELLOW (Yellow); GLUCOSE,URINE NEGATIVE (Negative); KETONES,URINE NEGATIVE (Negative); LEUKOCYTE ESTERASE,URINE TRACE (Negative); NITRITE,URINE NEGATIVE (Negative); OCCULT BLOOD,URINE NEGATIVE (Negative); PROTEIN,URINE NEGATIVE (Negative); UROBILINOGEN,URINE 0.2 (0.2-1.0)
[2023-02-28 17:47] LABS: BARBITURATE SCREEN,URINE NEGATIVE (CUTOFF=200); BENZODIAZEPINES SCREEN,URINE NEGATIVE (CUTOFF=150); BUPRENORPHINE SCREEN,URINE NEGATIVE (CUTOFF=10); METHADONE SCREEN, URINE NEGATIVE (CUTOFF=200); METHAMPHETAMINES SCREEN, URINE NEGATIVE (CUTOFF=500); OXYCODONE SCREEN,URINE NEGATIVE (CUT0FF=100); PROPOXYPHENE SCREEN,URINE NEGATIVE (CUTOFF=300); THC SCREEN,URINE 20 NG/ML NEGATIVE (CUTOFF=50)
[2023-02-28 17:51] LABS: AMPHETAMINES SCREEN, URINE NEGATIVE (CUTOFF=500)
[2023-02-28 18:00] LABS: AMORPHOUS SEDIMENT,URINE MODERATE /hpf (NOT SEEN); BACTERIA,URINE MANY /hpf (FEW); MUCUS,URINE NOT SEEN /hpf (FEW); RBC,URINE 0-5 /hpf (0-5); SQUAMOUS EPITHELIAL CELLS,UR 20-30 /hpf (0-5)
[2023-02-28] MEDS ORDERED: Polyethylene Glycol 3350 Powder 17 GM Packet PO ONE (19:19)
[2023-02-28] MEDS ORDERED: Nitrofurantoin Monohydrate/Macrocrystalline 100 MG Cap PO ONE (19:19)
== END 2023-02-28 19:58 | disposition home or self-care (01) ==
LOC: JD.ED 16:03
DX: N39.0 Urinary tract infection, site not specified (principal); K59.01 Slow transit constipation; Z32.02 Encounter for pregnancy test, result negative; Z86.16 Personal history of COVID-19; Z87.891 Personal history of nicotine dependence; Z79.899 Other long term (current) drug therapy; Z88.8 Allergy status to other drugs, medicaments and biological substances
CPT/HCPCS: 74018; 76830; 80306; 81001; 81025; 87086; 99284; A9270; 99283

== ENCOUNTER 2023-03-01 17:51 | Emergency (ER) | payer MEDICAID ==
[2023-03-01 19:16] VITALS: BP 103/67; PULSE 84
== END 2023-03-01 19:10 | disposition other institution (70) ==
LOC: JD.ED 17:51
DX: K59.00 Constipation, unspecified (principal); N30.00 Acute cystitis without hematuria; J45.909 Unspecified asthma, uncomplicated; Z86.16 Personal history of COVID-19; Z88.8 Allergy status to other drugs, medicaments and biological substances
CPT/HCPCS: 99282; 99283

== ENCOUNTER 2023-03-08 06:13 | Emergency (ER) | payer MEDICAID ==
[2023-03-08] MEDS ORDERED: Polyethylene Glycol/Electrolytes 4,000 ML Bottle PO ONE (07:29)
[2023-03-08 07:54] VITALS: BP 119/79; PULSE 74
== END 2023-03-08 07:54 | disposition home or self-care (01) ==
LOC: JD.ED 06:13
DX: K59.00 Constipation, unspecified (principal); Z86.16 Personal history of COVID-19; Z79.899 Other long term (current) drug therapy; Z88.8 Allergy status to other drugs, medicaments and biological substances
CPT/HCPCS: 99283; A9270; 99282

== ENCOUNTER 2023-05-06 09:10 | Emergency (ER) | payer MEDICAID ==
[2023-05-06 09:18] VITALS: PULSE 93
[2023-05-06 17:46] VITALS: BP 125/93
== END 2023-05-06 13:07 | disposition home or self-care (01) ==
LOC: JD.ED 09:10
DX: F18.10 Inhalant abuse, uncomplicated (principal); T69.9XXA Effect of reduced temperature, unspecified, initial encounter; J45.909 Unspecified asthma, uncomplicated; Z86.16 Personal history of COVID-19; Z79.899 Other long term (current) drug therapy; Z88.8 Allergy status to other drugs, medicaments and biological substances
CPT/HCPCS: 99282; 99283

== ENCOUNTER 2023-05-08 11:51 | Emergency (ER) | payer MEDICAID ==
[2023-05-08 13:55] LABS: APPEARANCE,URINE SLT CLOUDY (Clear); BILIRUBIN,URINE NEGATIVE (Negative); COLOR,URINE LIGHT YELLOW (Yellow); GLUCOSE,URINE NEGATIVE (Negative); KETONES,URINE NEGATIVE (Negative); LEUKOCYTE ESTERASE,URINE NEGATIVE (Negative); NITRITE,URINE NEGATIVE (Negative); OCCULT BLOOD,URINE NEGATIVE (Negative); PROTEIN,URINE NEGATIVE (Negative); UROBILINOGEN,URINE 0.2 (0.2-1.0)
[2023-05-08 14:32] LABS: BASOPHILS PERCENT AUTO 0.6 % (0.0-1.0); EOSINOPHILS ABSOLUTE AUTO 0.1 K/mm3 (0.0-0.4); HEMATOCRIT 41.7 % (37.0-47.0); HEMOGLOBIN 13.9 gm/dl (12.0-16.0); IMMATURE GRAN ABSOLUTE AUTO 0.02 K/mm3 (0.00-0.05); IMMATURE GRAN PERCENT AUTO 0.3 % (0.0-0.4); LYMPHOCYTES ABSOLUTE AUTO 1.8 K/mm3 (1.0-4.8); LYMPHOCYTES PERCENT AUTO 24.8 % (24.0-44.0); MEAN CORPUSCULAR HEMOGLOBIN 32.1 pg (28.0-32.0); MEAN CORPUSCULAR HGB CONC 33.3 g/dl (32.0-36.0); MEAN CORPUSCULAR VOLUME 96.3 fl (83.0-99.0); MEAN PLATELET VOLUME 8.4 fl (9.4-12.3); MONOCYTES ABSOLUTE AUTO 0.7 K/mm3 (0.0-0.8); NEUTROPHILS ABSOLUTE AUTO 4.4 K/mm3 (1.8-7.7); NEUTROPHILS PERCENT AUTO 62.3 % (41.0-71.0); PLATELET COUNT,PLT 214 K/mm3 (150-400); RED BLOOD CELL COUNT 4.33 M/mm3 (4.10-5.30)
[2023-05-08 15:27] LABS: A/G RATIO 1.2 (1-2); ALBUMIN 3.8 g/dl (3.4-5.0); ANION GAP 16.1 (5-15); BILIRUBIN TOTAL 0.3 mg/dL (0.2-1.0); CREATININE 0.8 mg/dL (0.55-1.02); EST CRCL DRUG DOSING (CG) 92.02 mL/min; POTASSIUM,K 4.1 mEq/L (3.5-5.1)
[2023-05-08 16:40] VITALS: BP 124/68; PULSE 68
== END 2023-05-08 16:21 | disposition home or self-care (01) ==
LOC: JD.ED 11:51
DX: T59.92XA Toxic effect of unspecified gases, fumes and vapors, intentional self-harm, initial encounter (principal); J45.909 Unspecified asthma, uncomplicated; F17.210 Nicotine dependence, cigarettes, uncomplicated; Z86.16 Personal history of COVID-19; Z79.899 Other long term (current) drug therapy; Z88.8 Allergy status to other drugs, medicaments and biological substances
CPT/HCPCS: 36415; 71045; 71045-26; 80053; 81003; 84702; 85025; 93005; 93010; 99282; 99285

== ENCOUNTER 2023-05-16 00:19 | Emergency (ER) | payer MEDICAID ==
[2023-05-16 00:31] VITALS: PULSE 72
[2023-05-16 01:55] LABS: BASOPHILS ABSOLUTE AUTO 0.1 K/mm3 (0.0-0.2); BASOPHILS PERCENT AUTO 0.6 % (0.0-1.0); EOSINOPHILS ABSOLUTE AUTO 0.2 K/mm3 (0.0-0.4); EOSINOPHILS PERCENT AUTO 2.5 % (0.0-6.0); HEMATOCRIT 38.6 % (37.0-47.0); HEMOGLOBIN 13.5 gm/dl (12.0-16.0); IMMATURE GRAN ABSOLUTE AUTO 0.02 K/mm3 (0.00-0.05); IMMATURE GRAN PERCENT AUTO 0.2 % (0.0-0.4); LYMPHOCYTES ABSOLUTE AUTO 2.7 K/mm3 (1.0-4.8); LYMPHOCYTES PERCENT AUTO 31.1 % (24.0-44.0); MEAN CORPUSCULAR HEMOGLOBIN 32.5 pg (28.0-32.0); MEAN CORPUSCULAR VOLUME 92.8 fl (83.0-99.0); MEAN PLATELET VOLUME 8.4 fl (9.4-12.3); MONOCYTES ABSOLUTE AUTO 0.7 K/mm3 (0.0-0.8); MONOCYTES PERCENT AUTO 7.5 % (0.0-8.0); NEUTROPHILS ABSOLUTE AUTO 5.1 K/mm3 (1.8-7.7); NEUTROPHILS PERCENT AUTO 58.1 % (41.0-71.0); PLATELET COUNT,PLT 265 K/mm3 (150-400); RED BLOOD CELL COUNT 4.16 M/mm3 (4.10-5.30); WHITE BLOOD CELL COUNT,WBC 8.79 K/mm3 (3.9-11.3)
[2023-05-16 02:35] LABS: APPEARANCE,URINE CLEAR (Clear); BILIRUBIN,URINE NEGATIVE (Negative); COLOR,URINE LIGHT YELLOW (Yellow); GLUCOSE,URINE NEGATIVE (Negative); KETONES,URINE NEGATIVE (Negative); LEUKOCYTE ESTERASE,URINE NEGATIVE (Negative); NITRITE,URINE NEGATIVE (Negative); OCCULT BLOOD,URINE TRACE-INTACT (Negative); PROTEIN,URINE NEGATIVE (Negative); UROBILINOGEN,URINE 0.2 (0.2-1.0)
[2023-05-16 02:42] LABS: A/G RATIO 1.1 (1-2); ALBUMIN 3.6 g/dl (3.4-5.0); ANION GAP 11.7 (5-15); BILIRUBIN TOTAL 0.1 mg/dL (0.2-1.0); CALCIUM 8.6 mg/dL (8.5-10.1); CREATININE 0.8 mg/dL (0.55-1.02); EST CRCL DRUG DOSING (CG) 99.76 mL/min; POTASSIUM,K 3.7 mEq/L (3.5-5.1); PROTEIN TOTAL,TP 6.9 g/dl (6.4-8.2)
[2023-05-16 02:43] LABS: RBC,URINE 0-5 /hpf (0-5); WBC,URINE 0-5 /hpf (0-5)
[2023-05-16 02:44] LABS: BACTERIA,URINE MODERATE /hpf (FEW); MUCUS,URINE NOT SEEN /hpf (FEW); SQUAMOUS EPITHELIAL CELLS,UR 0-5 /hpf (0-5)
[2023-05-16 02:48] LABS: BARBITURATE SCREEN,URINE NEGATIVE (CUTOFF=200); BENZODIAZEPINES SCREEN,URINE NEGATIVE (CUTOFF=150); BUPRENORPHINE SCREEN,URINE NEGATIVE (CUTOFF=10); METHADONE SCREEN, URINE NEGATIVE (CUTOFF=200); METHAMPHETAMINES SCREEN, URINE NEGATIVE (CUTOFF=500); OXYCODONE SCREEN,URINE NEGATIVE (CUT0FF=100); THC SCREEN,URINE 20 NG/ML NEGATIVE (CUTOFF=50)
[2023-05-16 02:49] LABS: AMPHETAMINES SCREEN, URINE NEGATIVE (CUTOFF=500)
[2023-05-16 07:16] VITALS: BP 128/91
== END 2023-05-16 06:39 | disposition home or self-care (01) ==
LOC: JD.ED 00:19
DX: R40.1 Stupor (principal); J45.909 Unspecified asthma, uncomplicated; Z79.899 Other long term (current) drug therapy; Z88.8 Allergy status to other drugs, medicaments and biological substances; Z86.16 Personal history of COVID-19
CPT/HCPCS: 36415; 70450; 70450-26; 73120-26-LT; 73120-26-RT; 73120-LT; 73120-RT; 735622650; 73562-50; 80053; 80306; 80307; 81001; 83605; 84703; 85025; 93005; 99284

== ENCOUNTER 2023-07-24 16:35 | Emergency (ER) | payer MEDICAID ==
[2023-07-24 16:48] VITALS: BP 127/104; PULSE 108
[2023-07-24] MEDS ORDERED: Sodium Chloride 0.9% 10 ML Syringe FLUSH PRN (17:28)
[2023-07-24] MEDS ORDERED: Sodium Chloride 0.9% 1,000 ML IV SCH (17:30)
[2023-07-24] MEDS ORDERED: Ibuprofen 600 MG Tab PO ONE (17:57)
[2023-07-24] MEDS ORDERED: Bacitracin Oint 15 GM Tube TOP ONE (17:57)
[2023-07-24] MEDS ORDERED: Diphtheria,Pertussis(Acell),Tetanus Vaccine 0.5 ML Syringe IM ONE (17:58)
[2023-07-24 18:00] LABS: BASOPHILS PERCENT AUTO 0.4 % (0.0-1.0); EOSINOPHILS ABSOLUTE AUTO 0.1 K/mm3 (0.0-0.4); EOSINOPHILS PERCENT AUTO 1.1 % (0.0-6.0); HEMATOCRIT 42.9 % (37.0-47.0); HEMOGLOBIN 14.9 gm/dl (12.0-16.0); IMMATURE GRAN ABSOLUTE AUTO 0.04 K/mm3 (0.00-0.05); IMMATURE GRAN PERCENT AUTO 0.5 % (0.0-0.4); LYMPHOCYTES ABSOLUTE AUTO 1.6 K/mm3 (1.0-4.8); MEAN CORPUSCULAR HEMOGLOBIN 31.8 pg (28.0-32.0); MEAN CORPUSCULAR HGB CONC 34.7 g/dl (32.0-36.0); MEAN CORPUSCULAR VOLUME 91.5 fl (83.0-99.0); MONOCYTES ABSOLUTE AUTO 0.7 K/mm3 (0.0-0.8); MONOCYTES PERCENT AUTO 8.3 % (0.0-8.0); NEUTROPHILS ABSOLUTE AUTO 5.7 K/mm3 (1.8-7.7); NEUTROPHILS PERCENT AUTO 69.7 % (41.0-71.0); PLATELET COUNT,PLT 315 K/mm3 (150-400); RED BLOOD CELL COUNT 4.69 M/mm3 (4.10-5.30)
[2023-07-24 18:28] LABS: A/G RATIO 1.1 (1-2); ALBUMIN 4.1 g/dl (3.4-5.0); ANION GAP 17.9 (5-15); BILIRUBIN TOTAL 0.3 mg/dL (0.2-1.0); BUN/CREATININE RATIO 17.8 (14-18); CALCIUM 8.7 mg/dL (8.5-10.1); CREATININE 0.9 mg/dL (0.55-1.02); EST CRCL DRUG DOSING (CG) 81.08 mL/min; POTASSIUM,K 3.9 mEq/L (3.5-5.1); PROTEIN TOTAL,TP 7.9 g/dl (6.4-8.2)
== END 2023-07-24 18:07 | disposition left against medical advice (07) ==
LOC: JD.ED 16:35
DX: T33.521A Superficial frostbite of right hand, initial encounter (principal); S00.501A Unspecified superficial injury of lip, initial encounter; F17.210 Nicotine dependence, cigarettes, uncomplicated; Z88.8 Allergy status to other drugs, medicaments and biological substances; Z86.16 Personal history of COVID-19
CPT/HCPCS: 36415; 80053; 80307; 85025; 93005; 99284

== ENCOUNTER 2023-11-15 15:53 | Emergency (ER) | payer MEDICAID ==
[2023-11-15 16:30] LABS: BASOPHILS PERCENT AUTO 0.5 % (0.0-1.0); EOSINOPHILS ABSOLUTE AUTO 0.1 K/mm3 (0.0-0.4); HEMATOCRIT 39.1 % (37.0-47.0); HEMOGLOBIN 13.4 gm/dl (12.0-16.0); IMMATURE GRAN ABSOLUTE AUTO 0.02 K/mm3 (0.00-0.05); IMMATURE GRAN PERCENT AUTO 0.3 % (0.0-0.4); LYMPHOCYTES ABSOLUTE AUTO 1.2 K/mm3 (1.0-4.8); LYMPHOCYTES PERCENT AUTO 19.4 % (24.0-44.0); MEAN CORPUSCULAR HEMOGLOBIN 31.3 pg (28.0-32.0); MEAN CORPUSCULAR HGB CONC 34.3 g/dl (32.0-36.0); MEAN CORPUSCULAR VOLUME 91.4 fl (83.0-99.0); MEAN PLATELET VOLUME 8.3 fl (9.4-12.3); MONOCYTES ABSOLUTE AUTO 0.4 K/mm3 (0.0-0.8); MONOCYTES PERCENT AUTO 7.2 % (0.0-8.0); NEUTROPHILS ABSOLUTE AUTO 4.4 K/mm3 (1.8-7.7); NEUTROPHILS PERCENT AUTO 71.6 % (41.0-71.0); PLATELET COUNT,PLT 218 K/mm3 (150-400); RED BLOOD CELL COUNT 4.28 M/mm3 (4.10-5.30); WHITE BLOOD CELL COUNT,WBC 6.14 K/mm3 (3.9-11.3)
[2023-11-15 16:57] LABS: C-REACTIVE PROTEIN 0.06 mg/dL (<0.30); HCG QUANTITATIVE < 1.0 mIU/mL
[2023-11-15 17:41] VITALS: BP 118/64; PULSE 75
== END 2023-11-15 17:25 | disposition home or self-care (01) ==
LOC: JD.ED 15:53
DX: N93.9 Abnormal uterine and vaginal bleeding, unspecified (principal); Z88.8 Allergy status to other drugs, medicaments and biological substances; Z79.899 Other long term (current) drug therapy; Z86.16 Personal history of COVID-19
CPT/HCPCS: 36415; 84702; 85025; 86140; 99283; 99284

== ENCOUNTER 2023-11-25 13:00 | Emergency (ER) | payer MEDICAID ==
[2023-11-25] MEDS: Metoclopramide 10 MG/2 ML SDV IVPUSH ONE (15:36)
[2023-11-25] MEDS: Dextrose 5%-0.9% NaCl 1,000 ML IV SCH (15:36)
[2023-11-25] MEDS: HYDROmorphone 0.5 MG/0.5 ML Syringe IVPUSH ONE (15:37)
[2023-11-25 15:43] LABS: BASOPHILS PERCENT AUTO 0.4 % (0.0-1.0); EOSINOPHILS ABSOLUTE AUTO 0.1 K/mm3 (0.0-0.4); EOSINOPHILS PERCENT AUTO 0.9 % (0.0-6.0); HEMATOCRIT 44.7 % (37.0-47.0); HEMOGLOBIN 15.4 gm/dl (12.0-16.0); IMMATURE GRAN ABSOLUTE AUTO 0.01 K/mm3 (0.00-0.05); IMMATURE GRAN PERCENT AUTO 0.2 % (0.0-0.4); LYMPHOCYTES ABSOLUTE AUTO 1.2 K/mm3 (1.0-4.8); LYMPHOCYTES PERCENT AUTO 22.5 % (24.0-44.0); MEAN CORPUSCULAR HEMOGLOBIN 31.8 pg (28.0-32.0); MEAN CORPUSCULAR HGB CONC 34.5 g/dl (32.0-36.0); MEAN CORPUSCULAR VOLUME 92.4 fl (83.0-99.0); MEAN PLATELET VOLUME 8.6 fl (9.4-12.3); MONOCYTES ABSOLUTE AUTO 0.4 K/mm3 (0.0-0.8); NEUTROPHILS ABSOLUTE AUTO 3.7 K/mm3 (1.8-7.7); PLATELET COUNT,PLT 228 K/mm3 (150-400); RED BLOOD CELL COUNT 4.84 M/mm3 (4.10-5.30); WHITE BLOOD CELL COUNT,WBC 5.29 K/mm3 (3.9-11.3)
[2023-11-25 16:10] LABS: A/G RATIO 1.1 (1-2); ALBUMIN 4.2 g/dl (3.4-5.0); ANION GAP 15.3 (5-15); BILIRUBIN TOTAL 0.5 mg/dL (0.2-1.0); BUN/CREATININE RATIO 7.8 (14-18); CALCIUM 9.2 mg/dL (8.5-10.1); CREATININE 0.9 mg/dL (0.55-1.02); EST CRCL DRUG DOSING (CG) 93.83 mL/min; POTASSIUM,K 4.3 mEq/L (3.5-5.1); PROTEIN TOTAL,TP 7.9 g/dl (6.4-8.2)
[2023-11-25 19:46] VITALS: BP 127/77; PULSE 88
== END 2023-11-25 17:56 | disposition home or self-care (01) ==
LOC: JD.ED 13:00
DX: N93.8 Other specified abnormal uterine and vaginal bleeding (principal); F45.8 Other somatoform disorders; R10.30 Lower abdominal pain, unspecified
CPT/HCPCS: 36415; 74018; 80053; 84703; 85025; 86850; 86900; 86901; 96361; 96374; 96375; 99284; J1170; J2765; J7042

== ENCOUNTER 2024-01-20 17:55 | Emergency (ER) | payer MEDICAID ==
[2024-01-20 18:26] VITALS: PULSE 86
[2024-01-20 19:11] LABS: BASOPHILS PERCENT AUTO 0.4 % (0.0-1.0); EOSINOPHILS ABSOLUTE AUTO 0.1 K/mm3 (0.0-0.4); HEMATOCRIT 44.7 % (37.0-47.0); HEMOGLOBIN 15.5 gm/dl (12.0-16.0); IMMATURE GRAN ABSOLUTE AUTO 0.01 K/mm3 (0.00-0.05); IMMATURE GRAN PERCENT AUTO 0.1 % (0.0-0.4); LYMPHOCYTES ABSOLUTE AUTO 1.9 K/mm3 (1.0-4.8); LYMPHOCYTES PERCENT AUTO 25.5 % (24.0-44.0); MEAN CORPUSCULAR HEMOGLOBIN 30.8 pg (28.0-32.0); MEAN CORPUSCULAR HGB CONC 34.7 g/dl (32.0-36.0); MEAN PLATELET VOLUME 8.4 fl (9.4-12.3); MONOCYTES ABSOLUTE AUTO 0.8 K/mm3 (0.0-0.8); MONOCYTES PERCENT AUTO 10.4 % (0.0-8.0); NEUTROPHILS ABSOLUTE AUTO 4.6 K/mm3 (1.8-7.7); NEUTROPHILS PERCENT AUTO 62.6 % (41.0-71.0); PLATELET COUNT,PLT 267 K/mm3 (150-400); RED BLOOD CELL COUNT 5.04 M/mm3 (4.10-5.30); WHITE BLOOD CELL COUNT,WBC 7.33 K/mm3 (3.9-11.3)
[2024-01-20 19:26] LABS: BARBITURATE SCREEN,URINE NEGATIVE (CUTOFF=200); BENZODIAZEPINES SCREEN,URINE NEGATIVE (CUTOFF=150); BUPRENORPHINE SCREEN,URINE NEGATIVE (CUTOFF=10); METHADONE SCREEN, URINE NEGATIVE (CUTOFF=200); METHAMPHETAMINES SCREEN, URINE PRESUMPTIVE POSITIVE (CUTOFF=500); OXYCODONE SCREEN,URINE NEGATIVE (CUT0FF=100); THC SCREEN,URINE 20 NG/ML PRESUMPTIVE POSITIVE (CUTOFF=50)
[2024-01-20 19:29] LABS: AMPHETAMINES SCREEN, URINE PRESUMPTIVE POSITIVE (CUTOFF=500)
[2024-01-20 19:49] LABS: A/G RATIO 1.2 (1-2); ALANINE AMINOTRANSFERASE,ALT 18 U/L (14-59); ALBUMIN 4.2 g/dl (3.4-5.0); ALKALINE PHOSPHATASE 52 U/L (46-116); ANION GAP 14.1 (5-15); ASPARTATE AMNIOTRANSFERASE,AST 16 U/L (15-37); BILIRUBIN TOTAL 0.6 mg/dL (0.2-1.0); BLOOD UREA NITROGEN,BUN 8 mg/dL (7-18); BUN/CREATININE RATIO 8.9 (14-18); CALCIUM 9.5 mg/dL (8.5-10.1); CARBON DIOXIDE,CO2 27 mEq/L (21-32); CHLORIDE,CL 102 mEq/L (98-107); CREATININE 0.9 mg/dL (0.55-1.02); EST CRCL DRUG DOSING (CG) 77.67 mL/min; ESTIMATED GFR 90 mL/min (>60); GLUCOSE RANDOM 93 mg/dL (70-99); POTASSIUM,K 3.1 mEq/L (3.5-5.1); PROTEIN TOTAL,TP 7.6 g/dl (6.4-8.2); SODIUM,NA 140 mEq/L (136-145); TSH 2.505 uIU/mL (0.358-3.74)
[2024-01-20 19:57] LABS: ACETAMINOPHEN 0 ug/mL (10-30); HCG QUANTITATIVE < 1.0 mIU/mL
[2024-01-20 20:05] LABS: MEAN CORPUSCULAR VOLUME 88.7 fl (83.0-99.0)
[2024-01-20 21:41] VITALS: BP 123/83
== END 2024-01-20 21:22 | disposition other institution (70) ==
LOC: JD.ED 17:55
DX: F22 Delusional disorders (principal); F25.8 Other schizoaffective disorders; F19.10 Other psychoactive substance abuse, uncomplicated; Z88.8 Allergy status to other drugs, medicaments and biological substances; Z79.899 Other long term (current) drug therapy; Z86.16 Personal history of COVID-19
CPT/HCPCS: 36415; 80053; 80143; 80179; 80306; 80307; 84443; 84702; 85025; 93005; 93010; 99283; 99285

== ENCOUNTER 2024-02-19 21:31 | Emergency (ER) | payer MEDICAID ==
[2024-02-19 21:41] VITALS: BP 147/108; PULSE 104
[2024-02-19 22:48] LABS: BASOPHILS PERCENT AUTO 0.7 % (0.0-1.0); EOSINOPHILS ABSOLUTE AUTO 0.1 K/mm3 (0.0-0.4); EOSINOPHILS PERCENT AUTO 1.4 % (0.0-6.0); HEMATOCRIT 39.7 % (37.0-47.0); HEMOGLOBIN 13.5 gm/dl (12.0-16.0); IMMATURE GRAN ABSOLUTE AUTO 0.01 K/mm3 (0.00-0.05); IMMATURE GRAN PERCENT AUTO 0.2 % (0.0-0.4); LYMPHOCYTES ABSOLUTE AUTO 2.1 K/mm3 (1.0-4.8); LYMPHOCYTES PERCENT AUTO 37.2 % (24.0-44.0); MEAN CORPUSCULAR HEMOGLOBIN 30.3 pg (28.0-32.0); MEAN PLATELET VOLUME 8.7 fl (9.4-12.3); MONOCYTES ABSOLUTE AUTO 0.6 K/mm3 (0.0-0.8); MONOCYTES PERCENT AUTO 10.7 % (0.0-8.0); NEUTROPHILS ABSOLUTE AUTO 2.8 K/mm3 (1.8-7.7); NEUTROPHILS PERCENT AUTO 49.8 % (41.0-71.0); PLATELET COUNT,PLT 224 K/mm3 (150-400); RED BLOOD CELL COUNT 4.46 M/mm3 (4.10-5.30)
[2024-02-19 23:00] LABS: APPEARANCE,URINE SLT CLOUDY (Clear); BILIRUBIN,URINE NEGATIVE (Negative); COLOR,URINE DARK YELLOW (Yellow); GLUCOSE,URINE NEGATIVE (Negative); KETONES,URINE NEGATIVE (Negative); LEUKOCYTE ESTERASE,URINE NEGATIVE (Negative); NITRITE,URINE NEGATIVE (Negative); OCCULT BLOOD,URINE NEGATIVE (Negative); PROTEIN,URINE NEGATIVE (Negative); UROBILINOGEN,URINE 0.2 (0.2-1.0)
[2024-02-19 23:09] LABS: BARBITURATE SCREEN,URINE NEGATIVE (CUTOFF=200); BENZODIAZEPINES SCREEN,URINE NEGATIVE (CUTOFF=150); BUPRENORPHINE SCREEN,URINE PRESUMPTIVE POSITIVE (CUTOFF=10); METHADONE SCREEN, URINE NEGATIVE (CUTOFF=200); METHAMPHETAMINES SCREEN, URINE PRESUMPTIVE POSITIVE (CUTOFF=500); OXYCODONE SCREEN,URINE NEGATIVE (CUT0FF=100); THC SCREEN,URINE 20 NG/ML PRESUMPTIVE POSITIVE (CUTOFF=50)
[2024-02-19 23:11] LABS: AMPHETAMINES SCREEN, URINE PRESUMPTIVE POSITIVE (CUTOFF=500)
[2024-02-19 23:16] LABS: A/G RATIO 1.2 (1-2); ALBUMIN 3.9 g/dl (3.4-5.0); ANION GAP 10.5 (5-15); BILIRUBIN TOTAL 0.6 mg/dL (0.2-1.0); BUN/CREATININE RATIO 6.3 (14-18); CALCIUM 9.3 mg/dL (8.5-10.1); CREATININE 0.8 mg/dL (0.55-1.02); EST CRCL DRUG DOSING (CG) 91.21 mL/min; POTASSIUM,K 3.5 mEq/L (3.5-5.1); PROTEIN TOTAL,TP 7.2 g/dl (6.4-8.2); TSH 0.746 uIU/mL (0.358-3.74)
[2024-02-20] MEDS: Mupirocin Oint 22 GM Tube TOP SCH (04:57)
[2024-02-20] MEDS: OLANZapine 5 MG Tab PO SCH (04:58)
[2024-02-20] MEDS: OLANZapine 5 MG Tab PO ONE (05:15)
== END 2024-02-20 05:57 | disposition home or self-care (01) ==
LOC: JD.ED 21:31
DX: L01.00 Impetigo, unspecified (principal); F22 Delusional disorders; Z86.16 Personal history of COVID-19; Z88.8 Allergy status to other drugs, medicaments and biological substances
CPT/HCPCS: 36415; 80053; 80306; 81003; 81025; 84443; 85025; 99283; A9270

== ENCOUNTER 2024-02-20 18:08 | Emergency (ER) | payer MEDICAID ==
[2024-02-20 18:19] VITALS: BP 128/80; PULSE 98
[2024-02-20 21:01] LABS: BASOPHILS ABSOLUTE AUTO 0.1 K/mm3 (0.0-0.2); BASOPHILS PERCENT AUTO 1.2 % (0.0-1.0); EOSINOPHILS ABSOLUTE AUTO 0.1 K/mm3 (0.0-0.4); EOSINOPHILS PERCENT AUTO 2.8 % (0.0-6.0); HEMATOCRIT 37.7 % (37.0-47.0); HEMOGLOBIN 12.6 gm/dl (12.0-16.0); IMMATURE GRAN ABSOLUTE AUTO 0.01 K/mm3 (0.00-0.05); IMMATURE GRAN PERCENT AUTO 0.2 % (0.0-0.4); LYMPHOCYTES PERCENT AUTO 39.4 % (24.0-44.0); MEAN CORPUSCULAR HEMOGLOBIN 30.7 pg (28.0-32.0); MEAN CORPUSCULAR HGB CONC 33.4 g/dl (32.0-36.0); MONOCYTES ABSOLUTE AUTO 0.6 K/mm3 (0.0-0.8); MONOCYTES PERCENT AUTO 10.9 % (0.0-8.0); NEUTROPHILS ABSOLUTE AUTO 2.3 K/mm3 (1.8-7.7); NEUTROPHILS PERCENT AUTO 45.5 % (41.0-71.0); PLATELET COUNT,PLT 235 K/mm3 (150-400); WHITE BLOOD CELL COUNT,WBC 5.03 K/mm3 (3.9-11.3)
[2024-02-20 21:28] LABS: A/G RATIO 1.1 (1-2); ALANINE AMINOTRANSFERASE,ALT 15 U/L (14-59); ALBUMIN 3.5 g/dl (3.4-5.0); ALKALINE PHOSPHATASE 52 U/L (46-116); ANION GAP 10.9 (5-15); ASPARTATE AMNIOTRANSFERASE,AST 19 U/L (15-37); BILIRUBIN TOTAL 0.4 mg/dL (0.2-1.0); BLOOD UREA NITROGEN,BUN 10 mg/dL (7-18); BUN/CREATININE RATIO 11.1 (14-18); CALCIUM 8.9 mg/dL (8.5-10.1); CARBON DIOXIDE,CO2 30 mEq/L (21-32); CHLORIDE,CL 107 mEq/L (98-107); CREATININE 0.9 mg/dL (0.55-1.02); EST CRCL DRUG DOSING (CG) 81.08 mL/min; ESTIMATED GFR 90 mL/min (>60); GLUCOSE RANDOM 80 mg/dL (70-99); LIPASE 29 U/L (16-77); POTASSIUM,K 2.9 mEq/L (3.5-5.1); PROTEIN TOTAL,TP 6.6 g/dl (6.4-8.2); SODIUM,NA 145 mEq/L (136-145)
[2024-02-20 21:33] LABS: HCG QUANTITATIVE < 1.0 mIU/mL
[2024-02-20] MEDS: ClonazePAM 1 MG Tab PO SCH (22:09)
[2024-02-20] MEDS: Potassium Chloride 20 MEQ Tab.ER PO ONE (22:11)
[2024-02-20] MEDS: Magnesium Citrate Solution 296 ML Bottle PO ONE ×2 (22:34→22:35)
[2024-02-20] MEDS: OLANZapine 10 MG Vial IM ONE (22:34)
[2024-02-20] MEDS: LORazepam 2 MG/ML SDV IM ONE (22:35)
[2024-02-21] MEDS ORDERED: ClonazePAM 1 MG Tab PO SCH (21:00)
== END 2024-02-20 22:52 | disposition home or self-care (01) ==
LOC: JD.ED 18:08
DX: K59.00 Constipation, unspecified (principal); F41.9 Anxiety disorder, unspecified; J40 Bronchitis, not specified as acute or chronic; Z86.16 Personal history of COVID-19; Z88.8 Allergy status to other drugs, medicaments and biological substances
CPT/HCPCS: 36415; 80053; 83605; 83690; 84702; 85025; 99283; A9270

== ENCOUNTER 2024-02-21 21:29 | Emergency (ER) | payer MEDICAID ==
[2024-02-21] MEDS: OLANZapine 5 MG Tab PO ONE ×2 (21:58→22:04)
[2024-02-21 22:17] VITALS: BP 112/92; PULSE 102
== END 2024-02-21 22:05 | disposition home or self-care (01) ==
LOC: JD.ED 21:29
DX: G47.00 Insomnia, unspecified (principal); J40 Bronchitis, not specified as acute or chronic; Z86.16 Personal history of COVID-19; Z88.8 Allergy status to other drugs, medicaments and biological substances
CPT/HCPCS: 99283; A9270

== ENCOUNTER 2024-02-22 20:03 | Emergency (ER) | payer MEDICAID ==
[2024-02-22 21:03] VITALS: BP 123/80; PULSE 78
== END 2024-02-22 22:15 | disposition left against medical advice (07) ==
LOC: JD.ED 20:03
DX: Z53.21 Procedure and treatment not carried out due to patient leaving prior to being seen by health care provider (principal)

== ENCOUNTER 2024-02-25 12:20 | Emergency (ER) | payer MEDICAID ==
[2024-02-25] MEDS: OLANZapine 5 MG Tab PO ONE (12:54)
[2024-02-25 14:14] LABS: BASOPHILS PERCENT AUTO 0.6 % (0.0-1.0); EOSINOPHILS ABSOLUTE AUTO 0.1 K/mm3 (0.0-0.4); EOSINOPHILS PERCENT AUTO 1.4 % (0.0-6.0); HEMATOCRIT 42.9 % (37.0-47.0); HEMOGLOBIN 14.7 gm/dl (12.0-16.0); IMMATURE GRAN ABSOLUTE AUTO 0.02 K/mm3 (0.00-0.05); IMMATURE GRAN PERCENT AUTO 0.3 % (0.0-0.4); LYMPHOCYTES ABSOLUTE AUTO 2.2 K/mm3 (1.0-4.8); LYMPHOCYTES PERCENT AUTO 32.3 % (24.0-44.0); MEAN CORPUSCULAR HEMOGLOBIN 30.8 pg (28.0-32.0); MEAN CORPUSCULAR HGB CONC 34.3 g/dl (32.0-36.0); MEAN CORPUSCULAR VOLUME 89.7 fl (83.0-99.0); MEAN PLATELET VOLUME 8.7 fl (9.4-12.3); MONOCYTES ABSOLUTE AUTO 0.5 K/mm3 (0.0-0.8); MONOCYTES PERCENT AUTO 7.4 % (0.0-8.0); PLATELET COUNT,PLT 308 K/mm3 (150-400); RED BLOOD CELL COUNT 4.78 M/mm3 (4.10-5.30)
[2024-02-25 14:36] LABS: A/G RATIO 1.3 (1-2); ALBUMIN 4.2 g/dl (3.4-5.0); BILIRUBIN TOTAL 0.7 mg/dL (0.2-1.0); CALCIUM 9.6 mg/dL (8.5-10.1); CREATININE 0.9 mg/dL (0.55-1.02); EST CRCL DRUG DOSING (CG) 81.08 mL/min; MAGNESIUM 1.9 mg/dL (1.8-2.4); PROTEIN TOTAL,TP 7.5 g/dl (6.4-8.2)
[2024-02-25 18:38] VITALS: BP 113/76; PULSE 98
== END 2024-02-25 16:36 | disposition home or self-care (01) ==
LOC: JD.ED 12:20
DX: F15.10 Other stimulant abuse, uncomplicated (principal); Z79.899 Other long term (current) drug therapy; Z86.16 Personal history of COVID-19; Z88.8 Allergy status to other drugs, medicaments and biological substances
CPT/HCPCS: 36415; 80053; 83735; 84702; 85025; 99283; 99284

== ENCOUNTER 2024-03-05 19:17 | Emergency (ER) | payer MEDICAID ==
[2024-03-05 19:43] VITALS: BP 121/84; PULSE 93
[2024-03-05 20:48] LABS: BASOPHILS ABSOLUTE AUTO 0.1 K/mm3 (0.0-0.2); BASOPHILS PERCENT AUTO 0.9 % (0.0-1.0); EOSINOPHILS ABSOLUTE AUTO 0.2 K/mm3 (0.0-0.4); EOSINOPHILS PERCENT AUTO 2.4 % (0.0-6.0); HEMOGLOBIN 13.4 gm/dl (12.0-16.0); IMMATURE GRAN ABSOLUTE AUTO 0.04 K/mm3 (0.00-0.05); IMMATURE GRAN PERCENT AUTO 0.5 % (0.0-0.4); LYMPHOCYTES ABSOLUTE AUTO 2.6 K/mm3 (1.0-4.8); LYMPHOCYTES PERCENT AUTO 33.2 % (24.0-44.0); MEAN CORPUSCULAR HGB CONC 33.5 g/dl (32.0-36.0); MEAN CORPUSCULAR VOLUME 92.6 fl (83.0-99.0); MEAN PLATELET VOLUME 8.7 fl (9.4-12.3); MONOCYTES ABSOLUTE AUTO 0.9 K/mm3 (0.0-0.8); MONOCYTES PERCENT AUTO 10.8 % (0.0-8.0); NEUTROPHILS ABSOLUTE AUTO 4.1 K/mm3 (1.8-7.7); NEUTROPHILS PERCENT AUTO 52.2 % (41.0-71.0); PLATELET COUNT,PLT 280 K/mm3 (150-400); RED BLOOD CELL COUNT 4.32 M/mm3 (4.10-5.30); WHITE BLOOD CELL COUNT,WBC 7.86 K/mm3 (3.9-11.3)
[2024-03-05 21:10] LABS: APPEARANCE,URINE CLOUDY (Clear); BILIRUBIN,URINE NEGATIVE (Negative); COLOR,URINE DARK YELLOW (Yellow); GLUCOSE,URINE NEGATIVE (Negative); KETONES,URINE NEGATIVE (Negative); LEUKOCYTE ESTERASE,URINE NEGATIVE (Negative); NITRITE,URINE NEGATIVE (Negative); OCCULT BLOOD,URINE TRACE-LYSED (Negative); PROTEIN,URINE 1+ (Negative); UROBILINOGEN,URINE 0.2 (0.2-1.0)
[2024-03-05 21:15] LABS: A/G RATIO 1.2 (1-2); ALBUMIN 3.8 g/dl (3.4-5.0); ANION GAP 13.3 (5-15); BILIRUBIN TOTAL 0.3 mg/dL (0.2-1.0); BUN/CREATININE RATIO 17.8 (14-18); CREATININE 0.9 mg/dL (0.55-1.02); EST CRCL DRUG DOSING (CG) 81.08 mL/min; POTASSIUM,K 4.3 mEq/L (3.5-5.1)
[2024-03-05 21:17] LABS: BARBITURATE SCREEN,URINE NEGATIVE (CUTOFF=200); BENZODIAZEPINES SCREEN,URINE PRESUMPTIVE POSITIVE (CUTOFF=150); BUPRENORPHINE SCREEN,URINE NEGATIVE (CUTOFF=10); METHADONE SCREEN, URINE NEGATIVE (CUTOFF=200); METHAMPHETAMINES SCREEN, URINE PRESUMPTIVE POSITIVE (CUTOFF=500); OXYCODONE SCREEN,URINE NEGATIVE (CUT0FF=100); THC SCREEN,URINE 20 NG/ML PRESUMPTIVE POSITIVE (CUTOFF=50)
[2024-03-05 21:18] LABS: AMPHETAMINES SCREEN, URINE PRESUMPTIVE POSITIVE (CUTOFF=500)
[2024-03-05 21:22] LABS: BACTERIA,URINE MODERATE /hpf (FEW); CALCIUM OXALATE CRYSTALS,URINE FEW; MUCUS,URINE MANY /hpf (FEW); WBC,URINE 0-5 /hpf (0-5)
[2024-03-05] MEDS: LORazepam 1 MG Tab PO ONE (21:36)
[2024-03-05] MEDS: Magnesium Citrate Solution 296 ML Bottle PO ONE (23:28)
== END 2024-03-06 00:09 | disposition home or self-care (01) ==
LOC: JD.ED 19:17
DX: K59.00 Constipation, unspecified (principal); Z86.16 Personal history of COVID-19; Z79.899 Other long term (current) drug therapy; Z88.8 Allergy status to other drugs, medicaments and biological substances; Z59.00 Homelessness unspecified
CPT/HCPCS: 36415; 74018; 80053; 80306; 81001; 81025; 85025; 99284; A9270; 99283

== ENCOUNTER 2024-03-09 17:02 | Emergency (ER) | payer MEDICAID ==
[2024-03-09 18:03] VITALS: BP 99/76; PULSE 74
[2024-03-09 19:09] LABS: BASOPHILS PERCENT AUTO 0.5 % (0.0-1.0); EOSINOPHILS ABSOLUTE AUTO 0.1 K/mm3 (0.0-0.4); HEMATOCRIT 41.2 % (37.0-47.0); HEMOGLOBIN 13.6 gm/dl (12.0-16.0); IMMATURE GRAN ABSOLUTE AUTO 0.01 K/mm3 (0.00-0.05); IMMATURE GRAN PERCENT AUTO 0.2 % (0.0-0.4); LYMPHOCYTES ABSOLUTE AUTO 1.7 K/mm3 (1.0-4.8); MEAN CORPUSCULAR HEMOGLOBIN 30.4 pg (28.0-32.0); MEAN PLATELET VOLUME 8.4 fl (9.4-12.3); MONOCYTES ABSOLUTE AUTO 0.6 K/mm3 (0.0-0.8); MONOCYTES PERCENT AUTO 9.4 % (0.0-8.0); NEUTROPHILS ABSOLUTE AUTO 3.5 K/mm3 (1.8-7.7); NEUTROPHILS PERCENT AUTO 58.9 % (41.0-71.0); PLATELET COUNT,PLT 249 K/mm3 (150-400); RED BLOOD CELL COUNT 4.48 M/mm3 (4.10-5.30); WHITE BLOOD CELL COUNT,WBC 5.93 K/mm3 (3.9-11.3)
[2024-03-09 19:33] LABS: A/G RATIO 1.1 (1-2); ALBUMIN 3.9 g/dl (3.4-5.0); ANION GAP 13.2 (5-15); BILIRUBIN TOTAL 0.3 mg/dL (0.2-1.0); BUN/CREATININE RATIO 8.2 (14-18); CALCIUM 9.1 mg/dL (8.5-10.1); CREATININE 1.1 mg/dL (0.55-1.02); EST CRCL DRUG DOSING (CG) 66.34 mL/min; POTASSIUM,K 4.2 mEq/L (3.5-5.1); PROTEIN TOTAL,TP 7.5 g/dl (6.4-8.2)
[2024-03-09 21:58] LABS: C. TRACHOMATIS BY PCR NOT DETECTED; N. GONORRHOEAE BY PCR NOT DETECTED
[2024-03-09] MEDS ORDERED: Fluconazole 150 MG Tab PO ONE (22:00)
== END 2024-03-09 22:11 | disposition home or self-care (01) ==
LOC: JD.ED 17:02
DX: B37.31 Acute candidiasis of vulva and vagina (principal); Z88.8 Allergy status to other drugs, medicaments and biological substances; Z86.16 Personal history of COVID-19
CPT/HCPCS: 0352U; 36415; 80053; 83690; 84702; 85025; 87491; 87591; 99283

== ENCOUNTER 2024-04-16 22:17 | Emergency (ER) | payer MEDICAID | END 2024-04-16 23:16 | disposition left against medical advice (07) | LOC: JD.ED 22:17 | DX: Z53.21 Procedure and treatment not carried out due to patient leaving prior to being seen by health care provider (principal) ==

== ENCOUNTER 2024-04-17 14:00 | Emergency (ER) | payer MEDICAID ==
[2024-04-17 14:29] LABS: BASOPHILS PERCENT AUTO 0.7 % (0.0-1.0); EOSINOPHILS ABSOLUTE AUTO 0.2 K/mm3 (0.0-0.4); EOSINOPHILS PERCENT AUTO 3.8 % (0.0-6.0); HEMATOCRIT 37.6 % (37.0-47.0); HEMOGLOBIN 12.5 gm/dl (12.0-16.0); IMMATURE GRAN ABSOLUTE AUTO 0.01 K/mm3 (0.00-0.05); IMMATURE GRAN PERCENT AUTO 0.2 % (0.0-0.4); LYMPHOCYTES ABSOLUTE AUTO 1.6 K/mm3 (1.0-4.8); LYMPHOCYTES PERCENT AUTO 34.5 % (24.0-44.0); MEAN CORPUSCULAR HGB CONC 33.2 g/dl (32.0-36.0); MEAN CORPUSCULAR VOLUME 93.3 fl (83.0-99.0); MEAN PLATELET VOLUME 8.4 fl (9.4-12.3); MONOCYTES ABSOLUTE AUTO 0.5 K/mm3 (0.0-0.8); MONOCYTES PERCENT AUTO 11.1 % (0.0-8.0); NEUTROPHILS ABSOLUTE AUTO 2.3 K/mm3 (1.8-7.7); NEUTROPHILS PERCENT AUTO 49.7 % (41.0-71.0); PLATELET COUNT,PLT 247 K/mm3 (150-400); RED BLOOD CELL COUNT 4.03 M/mm3 (4.10-5.30); WHITE BLOOD CELL COUNT,WBC 4.52 K/mm3 (3.9-11.3)
[2024-04-17 14:59] LABS: A/G RATIO 1.2 (1-2); ALANINE AMINOTRANSFERASE,ALT 15 U/L (14-59); ALBUMIN 3.6 g/dl (3.4-5.0); ALKALINE PHOSPHATASE 49 U/L (46-116); ANION GAP 12.5 (5-15); ASPARTATE AMNIOTRANSFERASE,AST 16 U/L (15-37); BILIRUBIN TOTAL 0.4 mg/dL (0.2-1.0); BLOOD UREA NITROGEN,BUN 11 mg/dL (7-18); BUN/CREATININE RATIO 12.2 (14-18); CALCIUM 8.6 mg/dL (8.5-10.1); CARBON DIOXIDE,CO2 27 mEq/L (21-32); CHLORIDE,CL 108 mEq/L (98-107); CREATININE 0.9 mg/dL (0.55-1.02); EST CRCL DRUG DOSING (CG) 81.08 mL/min; ESTIMATED GFR 90 mL/min (>60); GLUCOSE RANDOM 114 mg/dL (70-99); POTASSIUM,K 3.5 mEq/L (3.5-5.1); PROTEIN TOTAL,TP 6.6 g/dl (6.4-8.2); SODIUM,NA 144 mEq/L (136-145)
[2024-04-17 15:00] LABS: HCG QUANTITATIVE < 1.0 mIU/mL
[2024-04-17] MEDS: Magnesium Citrate Solution 296 ML Bottle PO ONE (18:02)
[2024-04-17 18:31] VITALS: BP 107/68; PULSE 78
== END 2024-04-17 18:06 | disposition home or self-care (01) ==
LOC: JD.ED 14:00
DX: R10.30 Lower abdominal pain, unspecified (principal); Z86.16 Personal history of COVID-19; Z88.8 Allergy status to other drugs, medicaments and biological substances
CPT/HCPCS: 36415; 74018; 80053; 84702; 85025; 99284; A9270

== ENCOUNTER 2024-08-07 13:55 | Emergency (ER) | payer SELFPAY ==
[2024-08-07 14:55] VITALS: BP 149/98; PULSE 104
[2024-08-07] MEDS: cefTRIAXone 1 GM, Lidocaine 1% 2.1 ML IM ONE (15:48)
== END 2024-08-07 15:48 | disposition left against medical advice (07) ==
LOC: JD.ED 13:55
DX: L03.114 Cellulitis of left upper limb (principal); R10.30 Lower abdominal pain, unspecified; Z53.20 Procedure and treatment not carried out because of patient's decision for unspecified reasons; Z86.16 Personal history of COVID-19; Z88.8 Allergy status to other drugs, medicaments and biological substances
CPT/HCPCS: 99283

== ENCOUNTER 2024-08-15 06:46 | Emergency (ER) | payer SELFPAY ==
[2024-08-15 06:58] VITALS: BP 152/94; PULSE 115
== END 2024-08-15 07:30 | disposition left against medical advice (07) ==
LOC: JD.ED 06:46
DX: G89.29 Other chronic pain (principal); R10.84 Generalized abdominal pain; F17.210 Nicotine dependence, cigarettes, uncomplicated; Z86.16 Personal history of COVID-19; Z88.8 Allergy status to other drugs, medicaments and biological substances; Z79.899 Other long term (current) drug therapy
CPT/HCPCS: 99283

== ENCOUNTER 2024-08-19 15:56 | Emergency (ER) | payer SELFPAY ==
[2024-08-19 17:41] VITALS: BP 131/88; PULSE 109
== END 2024-08-19 18:33 | disposition home or self-care (01) ==
LOC: JD.ED 15:56
DX: G89.29 Other chronic pain (principal); R10.84 Generalized abdominal pain; F15.10 Other stimulant abuse, uncomplicated; F22 Delusional disorders; R45.1 Restlessness and agitation; Z86.16 Personal history of COVID-19; Z88.8 Allergy status to other drugs, medicaments and biological substances; Z79.899 Other long term (current) drug therapy; Z53.29 Procedure and treatment not carried out because of patient's decision for other reasons
CPT/HCPCS: 99283

== ENCOUNTER 2024-10-08 22:57 | Emergency (ER) | payer MEDICAID ==
[2024-10-08 23:16] VITALS: PULSE 117
[2024-10-08 23:45] LABS: APPEARANCE,URINE SLT CLOUDY (Clear); BILIRUBIN,URINE NEGATIVE (Negative); COLOR,URINE YELLOW (Yellow); GLUCOSE,URINE NEGATIVE (Negative); KETONES,URINE TRACE (Negative); LEUKOCYTE ESTERASE,URINE TRACE (Negative); NITRITE,URINE NEGATIVE (Negative); OCCULT BLOOD,URINE TRACE-INTACT (Negative); PH,URINE 6.5 (5.0-8.0); PROTEIN,URINE 1+ (Negative); UROBILINOGEN,URINE 0.2 (0.2-1.0)
[2024-10-08 23:59] LABS: BASOPHILS PERCENT AUTO 0.6 % (0.0-1.0); EOSINOPHILS ABSOLUTE AUTO 0.2 K/mm3 (0.0-0.4); EOSINOPHILS PERCENT AUTO 3.1 % (0.0-6.0); HEMATOCRIT 42.4 % (37.0-47.0); HEMOGLOBIN 14.6 gm/dl (12.0-16.0); IMMATURE GRAN ABSOLUTE AUTO 0.02 K/mm3 (0.00-0.05); IMMATURE GRAN PERCENT AUTO 0.3 % (0.0-0.4); LYMPHOCYTES ABSOLUTE AUTO 1.6 K/mm3 (1.0-4.8); LYMPHOCYTES PERCENT AUTO 23.4 % (24.0-44.0); MEAN CORPUSCULAR HEMOGLOBIN 31.9 pg (28.0-32.0); MEAN CORPUSCULAR HGB CONC 34.4 g/dl (32.0-36.0); MEAN CORPUSCULAR VOLUME 92.6 fl (83.0-99.0); MEAN PLATELET VOLUME 8.5 fl (9.4-12.3); MONOCYTES ABSOLUTE AUTO 0.5 K/mm3 (0.0-0.8); MONOCYTES PERCENT AUTO 7.9 % (0.0-8.0); NEUTROPHILS ABSOLUTE AUTO 4.4 K/mm3 (1.8-7.7); NEUTROPHILS PERCENT AUTO 64.7 % (41.0-71.0); PLATELET COUNT,PLT 236 K/mm3 (150-400); RED BLOOD CELL COUNT 4.58 M/mm3 (4.10-5.30); WHITE BLOOD CELL COUNT,WBC 6.83 K/mm3 (3.9-11.3)
[2024-10-09] MEDS ORDERED: Ketorolac 30 MG/ML SDV IVPUSH ONE (00:01)
[2024-10-09 00:13] LABS: BACTERIA,URINE MODERATE /hpf (FEW); RBC,URINE 0-5 /hpf (0-5)
[2024-10-09 00:14] LABS: BARBITURATE SCREEN,URINE NEGATIVE (CUTOFF=200); BENZODIAZEPINES SCREEN,URINE PRESUMPTIVE POSITIVE (CUTOFF=150); BUPRENORPHINE SCREEN,URINE NEGATIVE (CUTOFF=10); METHADONE SCREEN, URINE NEGATIVE (CUTOFF=200); METHAMPHETAMINES SCREEN, URINE PRESUMPTIVE POSITIVE (CUTOFF=500); MUCUS,URINE MANY /hpf (FEW); OXYCODONE SCREEN,URINE NEGATIVE (CUT0FF=100); THC SCREEN,URINE 20 NG/ML PRESUMPTIVE POSITIVE (CUTOFF=50)
[2024-10-09 00:16] LABS: AMPHETAMINES SCREEN, URINE PRESUMPTIVE POSITIVE (CUTOFF=500)
[2024-10-09 00:37] LABS: A/G RATIO 1.1 (1-2); ALANINE AMINOTRANSFERASE,ALT 18 U/L (14-59); ALBUMIN 3.9 g/dl (3.4-5.0); ALKALINE PHOSPHATASE 57 U/L (46-116); ANION GAP 15.6 (5-15); ASPARTATE AMNIOTRANSFERASE,AST 20 U/L (15-37); BILIRUBIN TOTAL 0.5 mg/dL (0.2-1.0); BLOOD UREA NITROGEN,BUN 10 mg/dL (7-18); BUN/CREATININE RATIO 12.5 (14-18); CALCIUM 8.9 mg/dL (8.5-10.1); CARBON DIOXIDE,CO2 27 mEq/L (21-32); CHLORIDE,CL 100 mEq/L (98-107); CREATININE 0.8 mg/dL (0.55-1.02); EST CRCL DRUG DOSING (CG) 90.41 mL/min; ESTIMATED GFR 103 mL/min (>60); GLUCOSE RANDOM 111 mg/dL (70-99); LIPASE 52 U/L (16-77); MAGNESIUM 2.1 mg/dL (1.8-2.4); POTASSIUM,K 3.6 mEq/L (3.5-5.1); PROTEIN TOTAL,TP 7.6 g/dl (6.4-8.2); SODIUM,NA 139 mEq/L (136-145)
[2024-10-09 00:43] LABS: TROPONIN I HIGH SENSITIVITY < 4 pg/mL (<=51)
[2024-10-09] MEDS: Sodium Chloride 0.9% 1,000 ML IV ONE (01:05)
[2024-10-09] MEDS: Ketorolac 30 MG/ML SDV IVPUSH ONE (01:05)
[2024-10-09] MEDS: Sodium Chloride 0.9% 10 ML Syringe FLUSH PRN (01:05)
[2024-10-09 03:02] VITALS: BP 135/90
== END 2024-10-09 01:45 | disposition home or self-care (01) ==
LOC: JD.ED 22:57
DX: R07.9 Chest pain, unspecified (principal); L08.9 Local infection of the skin and subcutaneous tissue, unspecified; F15.10 Other stimulant abuse, uncomplicated; F12.10 Cannabis abuse, uncomplicated; Z88.8 Allergy status to other drugs, medicaments and biological substances; Z79.899 Other long term (current) drug therapy; Z86.16 Personal history of COVID-19
CPT/HCPCS: 36415; 71045; 73130; 80053; 80306; 80307; 81001; 83690; 83735; 84484; 84703; 85025; 85652; 87086; 93005; 96361; 96374; 99285; J1885; J7030; 93010; 99283

== ENCOUNTER 2025-01-28 22:27 | Emergency (ER) | payer MEDICAID ==
[2025-01-28 22:54] VITALS: BP 111/71; PULSE 103
[2025-01-29 01:48] LABS: BASOPHILS ABSOLUTE AUTO 0.1 K/mm3 (0.0-0.2); BASOPHILS PERCENT AUTO 0.8 % (0.0-1.0); EOSINOPHILS ABSOLUTE AUTO 0.1 K/mm3 (0.0-0.4); EOSINOPHILS PERCENT AUTO 2.2 % (0.0-6.0); IMMATURE GRAN ABSOLUTE AUTO 0.02 K/mm3 (0.00-0.05); IMMATURE GRAN PERCENT AUTO 0.3 % (0.0-0.4); LYMPHOCYTES ABSOLUTE AUTO 2.3 K/mm3 (1.0-4.8); LYMPHOCYTES PERCENT AUTO 38.6 % (24.0-44.0); MEAN PLATELET VOLUME 8.4 fl (9.4-12.3); MONOCYTES ABSOLUTE AUTO 0.4 K/mm3 (0.0-0.8); MONOCYTES PERCENT AUTO 7.3 % (0.0-8.0); NEUTROPHILS ABSOLUTE AUTO 3.1 K/mm3 (1.8-7.7); NEUTROPHILS PERCENT AUTO 50.8 % (41.0-71.0); NRBC ABSOLUTE 0.00 (0.00-0.02); NRBC PERCENT 0.0 % (0.0-0.2); PLATELET COUNT,PLT 302 K/mm3 (150-400); RED BLOOD CELL COUNT 4.50 M/mm3 (4.10-5.30); WHITE BLOOD CELL COUNT,WBC 6.03 K/mm3 (3.9-11.3)
[2025-01-29 02:09] LABS: BUPRENORPHINE SCREEN,URINE NEGATIVE (CUTOFF=10); METHADONE SCREEN, URINE NEGATIVE (CUTOFF=200); METHAMPHETAMINES SCREEN, URINE PRESUMPTIVE POSITIVE (CUTOFF=500); OXYCODONE SCREEN,URINE NEGATIVE (CUT0FF=100); THC SCREEN,URINE 20 NG/ML PRESUMPTIVE POSITIVE (CUTOFF=50)
[2025-01-29 02:13] LABS: AMPHETAMINES SCREEN, URINE PRESUMPTIVE POSITIVE (CUTOFF=500)
[2025-01-29 02:24] LABS: A/G RATIO 1.1 (1-2); ALANINE AMINOTRANSFERASE,ALT 19.0 U/L (14-59); ASPARTATE AMNIOTRANSFERASE,AST 15.0 U/L (15-37); BILIRUBIN TOTAL 0.3 mg/dL (0.2-1.0); BLOOD UREA NITROGEN,BUN 8.0 mg/dL (7-18); CARBON DIOXIDE,CO2 27.0 mEq/L (21-32); CHLORIDE,CL 104.0 mEq/L (98-107); CREATININE 0.7 mg/dL (0.55-1.02); EST CRCL DRUG DOSING (CG) 103.32 mL/min; ESTIMATED GFR 121.0 mL/min (>60); ETHANOL BLOOD MEDICAL 0.13 gm% (0.00); GLUCOSE RANDOM 107.0 mg/dL (70-99); POTASSIUM,K 3.6 mEq/L (3.5-5.1); PROTEIN TOTAL,TP 7.4 g/dl (6.4-8.2); SODIUM,NA 142.0 mEq/L (136-145); TSH 0.986 uIU/mL (0.358-3.74)
[2025-01-29 02:42] LABS: HCG QUANTITATIVE 1.0 mIU/mL
== END 2025-01-29 02:00 ==
LOC: EEVIPCON 22:27 → JD.ED 22:27
DX: S16.1XXA Strain of muscle, fascia and tendon at neck level, initial encounter (principal); S30.1XXA Contusion of abdominal wall, initial encounter; S00.83XA Contusion of other part of head, initial encounter; Z88.8 Allergy status to other drugs, medicaments and biological substances; Z79.899 Other long term (current) drug therapy; Z86.16 Personal history of COVID-19; Y04.8XXA Assault by other bodily force, initial encounter
CPT/HCPCS: 36415; 70450; 70450-26; 70486; 70486-26; 72125; 72125-26; 74176; 74176-26; 80053; 80143; 80179; 80306; 80307; 84443; 84702; 85025; 99285

== ENCOUNTER 2025-02-27 13:18 | Emergency (ER) | payer MEDICAID ==
[2025-02-27] MEDS ORDERED: Sodium Chloride 0.9% 10 ML Syringe FLUSH PRN (13:34)
[2025-02-27] MEDS ORDERED: Naloxone 0.4 MG/ML SDV IVPUSH PRN (13:35)
[2025-02-27] MEDS: Ondansetron 4 MG/2 ML SDV IVPUSH ONE (13:52)
[2025-02-27 13:54] LABS: BASOPHILS ABSOLUTE AUTO 0.0 K/mm3 (0.0-0.2); BASOPHILS PERCENT AUTO 0.4 % (0.0-1.0); EOSINOPHILS ABSOLUTE AUTO 0.1 K/mm3 (0.0-0.4); EOSINOPHILS PERCENT AUTO 1.7 % (0.0-6.0); IMMATURE GRAN ABSOLUTE AUTO 0.02 K/mm3 (0.00-0.05); IMMATURE GRAN PERCENT AUTO 0.3 % (0.0-0.4); LYMPHOCYTES ABSOLUTE AUTO 1.8 K/mm3 (1.0-4.8); LYMPHOCYTES PERCENT AUTO 25.1 % (24.0-44.0); MEAN PLATELET VOLUME 8.8 fl (9.4-12.3); MONOCYTES ABSOLUTE AUTO 0.5 K/mm3 (0.0-0.8); MONOCYTES PERCENT AUTO 6.4 % (0.0-8.0); NEUTROPHILS ABSOLUTE AUTO 4.8 K/mm3 (1.8-7.7); NEUTROPHILS PERCENT AUTO 66.1 % (41.0-71.0); NRBC ABSOLUTE 0.00 (0.00-0.02); NRBC PERCENT 0.0 % (0.0-0.2); PLATELET COUNT,PLT 274 K/mm3 (150-400); RED BLOOD CELL COUNT 4.64 M/mm3 (4.10-5.30); WHITE BLOOD CELL COUNT,WBC 7.20 K/mm3 (3.9-11.3)
[2025-02-27 14:16] LABS: A/G RATIO 1.1 (1-2); ALANINE AMINOTRANSFERASE,ALT 21.0 U/L (14-59); BILIRUBIN TOTAL 0.7 mg/dL (0.2-1.0); BLOOD UREA NITROGEN,BUN 13.0 mg/dL (7-18); CARBON DIOXIDE,CO2 24.0 mEq/L (21-32); CHLORIDE,CL 106.0 mEq/L (98-107); CREATININE 0.9 mg/dL (0.55-1.02); EST CRCL DRUG DOSING (CG) 80.36 mL/min; ESTIMATED GFR 89.0 mL/min (>60); GLUCOSE RANDOM 126.0 mg/dL (70-99); PROTEIN TOTAL,TP 7.4 g/dl (6.4-8.2); SODIUM,NA 142.0 mEq/L (136-145)
[2025-02-27 14:25] LABS: POTASSIUM,K 4.8 mEq/L (3.5-5.1)
[2025-02-27 14:26] LABS: ASPARTATE AMNIOTRANSFERASE,AST 30.0 U/L (15-37)
[2025-02-27] MEDS: Iopamidol 612 MG/ML 100 ML Bottle IVPUSH ONE (15:08)
[2025-02-27] MEDS: Sodium Chloride 0.9% 10 ML Syringe FLUSH PRN (15:08)
[2025-02-27 15:15] LABS: APPEARANCE,URINE TURBID (Clear); GLUCOSE,URINE NEGATIVE (Negative); OCCULT BLOOD,URINE 3+ (Negative)
[2025-02-27 15:36] LABS: EPITHELIAL CELLS,URINE 0-5 /hpf (0-5)
[2025-02-27] MEDS: Ketorolac 30 MG/ML SDV IVPUSH ONE (15:45)
[2025-02-27 16:22] LABS: BUPRENORPHINE SCREEN,URINE NEGATIVE (CUTOFF=10); METHADONE SCREEN, URINE NEGATIVE (CUTOFF=200); METHAMPHETAMINES SCREEN, URINE PRESUMPTIVE POSITIVE (CUTOFF=500); OXYCODONE SCREEN,URINE NEGATIVE (CUT0FF=100); THC SCREEN,URINE 20 NG/ML PRESUMPTIVE POSITIVE (CUTOFF=50)
[2025-02-27 16:24] LABS: AMPHETAMINES SCREEN, URINE PRESUMPTIVE POSITIVE (CUTOFF=500)
[2025-02-27 20:22] VITALS: BP 133/94; PULSE 82
== END 2025-02-27 18:52 ==
LOC: JD.ED 13:18 → EEVIPCON 13:18 → JD.ED 18:52
DX: N20.0 Calculus of kidney (principal); N30.00 Acute cystitis without hematuria; E86.0 Dehydration; Z86.16 Personal history of COVID-19; Z88.8 Allergy status to other drugs, medicaments and biological substances
CPT/HCPCS: 36415; 74177; 80053; 80306; 81001; 83690; 84703; 85025; 86140; 87086; 96361; 96374; 96375; 99285; J0696; J1885; J2405; J7030; Q9967; J1171

== ENCOUNTER 2025-05-11 02:26 | Emergency (ER) | payer MEDICAID ==
[2025-05-11 02:45] VITALS: BP 151/91; PULSE 102
== END 2025-05-11 03:25 | disposition home or self-care (01) ==
LOC: JD.ED 02:26
DX: Z71.1 Person with feared health complaint in whom no diagnosis is made (principal); Z88.8 Allergy status to other drugs, medicaments and biological substances
CPT/HCPCS: 99283